=== PATIENT | female | born 2000 | race Asian ===

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

== ENCOUNTER → 2020-07-16 | Outpatient (CLI) | payer OTHER | END | disposition home or self-care (01) | LOC: RADMAMWWP 09:46 | PROVIDERS: ATTEND Family Medicine | DX: Z53.9 Procedure and treatment not carried out, unspecified reason (principal) ==

== ENCOUNTER 2021-05-17 12:53 | Emergency (ER) | payer OTHER ==
[2021-05-17 13:37] VITALS: BP 117/66; PULSE 97; RESP 18; TEMP 98
--- NOTE | 2021-05-17 14:08 | ED ---
Abdominal Pain HPI - General Chief Complaint: Abdominal Pain Stated Complaint: Abdominal Pain, 6 weeks prg. Time Seen by Provider: 05/17/21 13:46 Source: patient Mode of arrival: ambulatory Limitations: no limitations - History of Present Illness Initial Comments: 20-year-old female presents to the emergency department with complaints of generalized abdominal pain intermittent for the past 2 weeks. States pain initially began in the left flank but no typically occurs in the epigastrium, though often spreads across the lower abdomen as well. Patient states she is approximately 6 weeks , LMP April 06. Does complain of mild intermittent nausea, though none at this time. Patient states she is scheduled to see her OB on MayMay 31, but is having variable discomfort and is uncomfortable waiting until then. No known sick contacts. Patient denies fever, chills, headache, chest pain, difficulty breathing, shortness of breath, vomiting, diarrhea, dysuria, or hematuria. - Related Data Home Medications Medication Instructions Recorded Confirmed 78/Iron/Folate 1/Dha 1 tab PO DAILY 12/12/17 05/17/21 [Prenate Dha Softgel] Previous Rx's Medication Instructions Recorded cephALEXin [cephALEXin Oral Susp] 250 mg PO Q6H 10 Days #200 ml 05/17/21 Allergies Allergy/AdvReac Type Severity Reaction Status Date / Time bee venom protein (honey bee) Allergy Rash/Hives Verified 05/17/21 15:52 Review of Systems ROS Statement: Those systems with pertinent positive or pertinent negative responses have been documented in the HPI. ROS Other: All systems not noted in ROS Statement are negative. Past Medical History Past Medical History: Asthma Additional Past Medical History / Comment(s): Eczema History of Any Multi-Drug Resistant Organisms: None Reported Past Surgical History: Adenoidectomy, Tonsillectomy Past Anesthesia/Blood Transfusion Reactions: No Reported Reaction Past Psychological History: No Psychological Hx Reported Smoking Status: Current every day smoker Past Alcohol Use History: None Reported Past Drug Use History: None Reported - Past Family History Father Family Medical History: Diabetes Mellitus, Hypertension General Exam Limitations: no limitations (Well-developed, well-nourished female in no acute distress. Initial temperature 90.8, pulse 97, respirations 18, blood pressure 117/66, pulse ox 97% on room air.) General appearance: alert, in no apparent distress ENT exam: Present: normal exam, normal oropharynx, mucous membranes moist Respiratory exam: Present: normal lung sounds bilaterally. Absent: respiratory distress, wheezes, rales, rhonchi, stridor Cardiovascular Exam: Present: regular rate, normal rhythm, normal heart sounds. Absent: systolic murmur, diastolic murmur, rubs, gallop, clicks GI/Abdominal exam: Present: soft, normal bowel sounds. Absent: distended, tenderness, guarding Back exam: Present: CVA tenderness (L) Neurological exam: Present: alert, oriented X3, CN II-XII intact Psychiatric exam: Present: normal affect, normal mood Skin exam: Present: warm, dry, intact, normal color. Absent: rash Course Vital Signs 05/17/21 13:35 Temperature 98 F Pulse Rate 97 Respiratory 18 Rate Blood Pressure 117/66 O2 Sat by Pulse 97 Oximetry - Reevaluation(s) Reevaluation #1: 05/17/21 16:15 Updated patient on results thus far. Patient declines blood draw and would like to leave. Discussed findings of UTI and patient is agreeable to treatment. Reiterated the importance of close follow-up. Medical Decision Making - Medical Decision Making 20-year-old female, , presents to the emergency department for evaluation of generalized abdominal pain. LMP April 06. Upon exam, patient is well-appearing and in no acute distress. Describes intermittent, vague abdominal discomfort occurring over the course of the past 2 weeks. Does have left CVA tenderness. Denies vaginal bleeding or discharge. Ultrasound was obtained showing no suspicious adenxal or extra-ovarian masses. Probable 1.5 cm corpus luteal cyst left ovary noted. Findings favor too early to visualize intrauterine . Laboratory studies were ordered, however patient was unwilling willing to wait for blood to be drawn. Did provide a urine specimen t hat shows large amount of leukocyte esterase, urine WBC>urine RBC, some squamous epithelial cell contamination, and many bacteria. UTI will be treated with Keflex which patient requests to be a liquid suspension. Patient will be discharged home and Instructed to follow-up with OB as scheduled, as well as primary care for recheck this week. Return parameters were discussed in detail. Patient verbalizes understanding and agrees with this plan. This patient's care was discussed with my attending . - Lab Data Lab Results 05/17/21 Range/Units 15:04 Urine Color Light Yellow Urine Appearance Cloudy H (Clear) Urine pH 6.5 (5.0-8.0) Ur Specific [place] 1.007 (1.001-1.035) Urine Protein Negative (Negative) Urine Glucose (UA) Negative (Negative) Urine Ketones Negative (Negative) Urine Blood Negative (Negative) Urine Nitrite Negative (Negative) Urine Bilirubin Negative (Negative) Urine Urobilinogen <2.0 (<2.0) mg/dL Ur Leukocyte Esterase Large H (Negative) Urine RBC 50 H (0-5) /hpf Urine WBC 107 H (0-5) /hpf Ur Squamous Epith Cells 36 H (0-4) /hpf Urine Bacteria Many H (None) /hpf Urine Mucus Rare H (None) /hpf - Radiology Data Radiology results: report reviewed Transvaginal and transabdominal ultrasound was obtained. Report reviewed in its entirety. The ovaries are identified without suspicious extra ovarian adnexal masses. Probable 1.5 cm corpus luteal cyst left ovary noted. Impression per Dr. Castillo is findings favor too early to visualize intrauterine . Disposition Clinical Impression: Urinary tract infection during Disposition: HOME SELF-CARE Condition: Stable Instructions (If sedation given, give patient instructions): Urinary Tract Infection in (ED) Additional Instructions: Follow-up with your primary care provider for a recheck early next week. Take antibiotic Keep appointment as scheduled with OB provider. Continue taking vitamin. Return to the emergency department with any new, worsening, or concerning symptoms. Prescriptions: cephALEXin [cephALEXin Oral Susp] 250 mg PO Q6H 10 Days #200 ml Is patient prescribed a controlled substance at d/c from ED?: No Referrals: Faviola Castelan DO [Primary Care Provider] - 1-2 days Time of Disposition: 16:39
[2021-05-17 15:24] LABS: Appearance,Urine Cloudy (Clear); Bacteria,Urine Many /hpf; Bilirubin,Urine Negative (Negative); Blood,Urine Negative (Negative); Color,Urine Light Yellow; Glucose,Urine (UA) Negative (Negative); Ketones,Urine Negative (Negative); Leukocyte Esterase,Urine Large (Negative); Mucus,Urine Rare /hpf; Nitrite,Urine Negative (Negative); PH, Urine 6.5 (5.0-8.0); Protein,Urine Negative (Negative); RBC,Urine 50 /hpf (0-5); Specific Gravity,Urine 1.007 (1.001-1.035); Squamous Epithelial Cell,Urine 36 /hpf (0-4); Urobilinogen,Urine <2.0 mg/dL (<2.0); WBC,Urine 107 /hpf (0-5)
--- NOTE | 2021-05-17 15:53 | US ---
EXAMINATION TYPE: Transabdominal DATE OF EXAM: 05/17/2021 3:35 PM COMPARISON: NONE CLINICAL HISTORY: generalized abdominal pain. Generalized pain. EXAM PERFORMED: Transvaginal (TV) and Transabdominal (TA) EXAM MEASUREMENTS: GESTATIONAL AGE / DATING Physician Established: Not yet established Dates by LMP: (5 weeks/6 days) EDC: 01/11/2022 Dates by First Scan: No previous this is first scan Dates by Current Scan for: Unable to date by today's study MATERNAL ANATOMY Uterus: 7.3 x 5.9 x 4.6 cm Right Ovary: 2.0 x 1.8 x 1.4 cm Left Ovary: 3.0 x 1.7 x 1.6 cm Post CDS / Adnexa: no free fluid Presence of free fluid: no Presence of corpus luteal cyst: left ovary = 1.5 x 1.5 x 1.4 cm Presence of subchorionic bleed: no GESTATION / SURVEY CRL: No seen MSD: 0.8 cm Too small to date Yolk Sac (normal less than 6mm): 2.4 mm IUP: Date of LMP: 04/06/2021, Beta HcG (if available): Not available at this time GS and YS visualized within endometrial canal. CRL not seen on todays exam. Heterogeneous anteverted uterus. Thickening of the endometrium up to roughly 32 mm. There is oval ane choic 10 x 7 x 7 mm structure with internal 2 mm rim hyperechoic round central anechoic lesion felt t o reflect early gestational sac and yolk sac. No pole seen. No free fluid pelvic cul-de-sac. Both ovaries identified without suspicious extraovarian adnexal masses. Probable 1.5 cm corpus luteal cyst left ovary noted. IMPRESSION: Findings favor too early to visualize intrauterine as detailed above. Serial be ta hCG and ultrasound follow-up should be considered based on clinical correlation.
[2021-05-17] MEDS ORDERED: CEPHALEXIN 250 MG/5 ML SUSPENSION PO STA (16:43)
== END 2021-05-17 17:15 | disposition home or self-care (01) ==
LOC: EC 12:53
DX: O23.41 Unspecified infection of urinary tract in pregnancy, first trimester (principal); N39.0 Urinary tract infection, site not specified; O99.511 Diseases of the respiratory system complicating pregnancy, first trimester; J45.909 Unspecified asthma, uncomplicated; O99.331 Smoking (tobacco) complicating pregnancy, first trimester; F17.200 Nicotine dependence, unspecified, uncomplicated; Z3A.01 Less than 8 weeks gestation of pregnancy
CPT/HCPCS: 76801; 76817; 81001; 87086; 99284

== ENCOUNTER 2021-07-28 20:37 | Emergency (ER) | payer OTHER ==
[2021-07-28] MEDS ORDERED: ACETAMINOPHEN TAB 325 MG TAB PO STA (21:04)
--- NOTE | 2021-07-28 21:10 | ED ---
General Adult HPI - General Chief complaint: Abdominal Pain Stated complaint: Chest/abd pain-16 weeks preg. Time Seen by Provider: 07/28/21 20:58 Source: patient, RN notes reviewed, old records reviewed Mode of arrival: ambulatory Limitations: no limitations - History of Present Illness Initial comments: 20-year-old female and well-appearing presents to the emergency room ambulatory with complaints of upper abdominal pain and right clavicle pain. Patient states that she is moving and has been lifting boxes and is not sure if this is muscle strain. She states it hurts with movement and to palpation. She denies any fevers or shortness of breath. She is 16 weeks but denies vaginal bleeding or pain. She states that she is feeling the baby move. She is currently taking antibiotics for a dental infection and has been on these antibiotics for a 6 days. -: days(s) (10) Location: right, upper extremity (Clavicle) Radiation: non-radiation Severity scale (1-10): 9 Quality: aching, constant Consistency: constant Improves with: immobilization Worsens with: movement, other (palpation) Associated Symptoms: other (right and left upper abdominal pain) Treatments Prior to Arrival: none - Related Data Home Medications Medication Instructions Recorded Confirmed 78/Iron/Folate 1/Dha 1 tab PO DAILY 12/12/17 07/28/21 [Prenate Dha Softgel] Amoxicillin 500 mg PO Q8H 07/28/21 07/28/21 Ondansetron HCl [Zofran] 4 mg PO Q8H PRN 07/28/21 07/28/21 Previous Rx's Medication Instructions Recorded Cephalexin [Keflex] 500 mg PO Q8HR 7 Days #21 cap 07/28/21 Allergies Allergy/AdvReac Type Severity Reaction Status Date / Time bee venom protein (honey bee) Allergy Swelling Verified 07/28/21 21:59 @site of sting Review of Systems ROS Statement: Those systems with pertinent positive or pertinent negative responses have been documented in the HPI. ROS Other: All systems not noted in ROS Statement are negative. Past Medical History Past Medical History: Asthma Additional Past Medical History / Comment(s): Eczema History of Any Multi-Drug Resistant Organisms: None Reported Past Surgical History: Adenoidectomy, Tonsillectomy Past Anesthesia/Blood Transfusion Reactions: No Reported Reaction Past Psychological History: No Psychological Hx Reported Smoking Status: Current every day smoker Past Alcohol Use History: None Reported Past Drug Use History: None Reported - Past Family History Father Family Medical History: Diabetes Mellitus, Hypertension General Exam Limitations: no limitations General appearance: alert, in no apparent distress Eye exam: Present: normal appearance, EOMI. Absent: scleral icterus, conjunctival injection ENT exam: Present: normal exam, normal oropharynx Expanded Mouth exam: Absent: drooling, trismus, muffled voice, laceration Teeth exam: Present: dental caries Throat exam: normal inspection. negative: tonsillar erythema Neck exam: Present: normal inspection, full ROM. Absent: tenderness, meningismus Respiratory exam: Present: normal lung sounds bilaterally. Absent: respiratory distress, wheezes, rales, rhonchi, stridor, chest wall tenderness, accessory muscle use, decreased breath sounds Cardiovascular Exam: Present: regular rate GI/Abdominal exam: Present: soft, tenderness (Upper abdominal worse with leaning forward) Back exam: Present: normal inspection, full ROM. Absent: tenderness, CVA tenderness (R), CVA tenderness (L) Neurological exam: Present: alert, oriented X3, normal gait Psychiatric exam: Present: normal affect, normal mood Skin exam: Present: warm, dry, normal color, rash (Generalized eczema, face, upper back, arms). Absent: cyanosis, petechiae Course Vital Signs 07/28/21 07/28/21 07/28/21 20:43 21:32 23:12 Temperature 98.2 F 98.8 F Pulse Rate 93 87 71 Respiratory 20 18 18 Rate Blood Pressure 115/66 140/92 118/81 O2 Sat by Pulse 98 96 97 Oximetry Medical Decision Making - Medical Decision Making Patient presents with 1 week of upper abdominal pain and right clavicle pain after moving boxes. She states is worse with palpation and movement. I did discuss the risks and benefits of the x-ray and she is requesting an x-ray. Chest x-ray shows lungs are clear, diaphragm is normal. Right clavicle appears normal. heart tones are 145. Urinalysis is cloudy with large leukocyte esterase, 31 wbc's and many bacteria. Patient will be treated for asymptomatic bacteriuria with Keflex and directed to follow up with her primary care doctor and [facility]. She was directed to return to the emergency room with any new or worsening symptoms. Case discussed with Dr. Castelan. - Lab Data Lab Results 07/28/21 Range/Units 21:26 Urine Color Yellow Urine Appearance Cloudy H (Clear) Urine pH 6.5 (5.0-8.0) Ur Specific [place] 1.014 (1.001-1.035) Urine Protein Negative (Negative) Urine Glucose (UA) Trace H (Negative) Urine Ketones Negative (Negative) Urine Blood Negative (Negative) Urine Nitrite Negative (Negative) Urine Bilirubin Negative (Negative) Urine Urobilinogen 2.0 (<2.0) mg/dL Ur Leukocyte Esterase Large H (Negative) Urine RBC 7 H (0-5) /hpf Urine WBC 31 H (0-5) /hpf Ur Squamous Epith Cells 21 H (0-4) /hpf Urine Bacteria Many H (None) /hpf Disposition Clinical Impression: UTI (urinary tract infection), Musculoskeletal pain Disposition: HOME SELF-CARE Condition: Good Instructions (If sedation given, give patient instructions): Musculoskeletal Pain (ED), Urinary Tract Infection in (ED) Additional Instructions: Take antibiotics as prescribed and increase your fluid intake. Follow-up with your primary care doctor and your [facility] next week. Take Tylenol as needed for your shoulder pain Return to the emergency room with any new or worsening symptoms. Prescriptions: Cephalexin [Keflex] 500 mg PO Q8HR 7 Days #21 cap Is patient prescribed a controlled substance at d/c from ED?: No Referrals: Faviola Castelan DO [Primary Care Provider] - 1-2 days Time of Disposition: 22:30
[2021-07-28 21:36] VITALS: RESP 18
--- NOTE | 2021-07-28 21:40 | XR ---
EXAMINATION TYPE: XR chest 1V DATE OF EXAM: 07/28/2021 COMPARISON: 08/20/2018 HISTORY: Abdominal pain. Right clavicle pain TECHNIQUE: FINDINGS: Heart and mediastinum are normal. Lungs are clear. Diaphragm is normal. Bony thorax is inta ct. Right clavicle appears normal. IMPRESSION: Normal chest. No change.
[2021-07-28 21:53] LABS: Appearance,Urine Cloudy (Clear); Bacteria,Urine Many /hpf; Bilirubin,Urine Negative (Negative); Blood,Urine Negative (Negative); Color,Urine Yellow; Glucose,Urine (UA) Trace (Negative); Ketones,Urine Negative (Negative); Leukocyte Esterase,Urine Large (Negative); Nitrite,Urine Negative (Negative); PH, Urine 6.5 (5.0-8.0); Protein,Urine Negative (Negative); RBC,Urine 7 /hpf (0-5); Specific Gravity,Urine 1.014 (1.001-1.035); Squamous Epithelial Cell,Urine 21 /hpf (0-4); WBC,Urine 31 /hpf (0-5)
[2021-07-28] MEDS ORDERED: CEPHALEXIN 500 MG CAP PO STA (22:30)
[2021-07-28] MEDS ORDERED: CEPHALEXIN 500MG STARTER PACK 4 CAP BTL PO STA (22:32)
[2021-07-28 23:16] VITALS: BP 118/81; PULSE 71; TEMP 98.8
== END 2021-07-28 23:14 | disposition home or self-care (01) ==
LOC: EC 20:37
DX: O26.892 Other specified pregnancy related conditions, second trimester (principal); O23.42 Unspecified infection of urinary tract in pregnancy, second trimester; O99.512 Diseases of the respiratory system complicating pregnancy, second trimester; N39.0 Urinary tract infection, site not specified; J45.909 Unspecified asthma, uncomplicated; F17.200 Nicotine dependence, unspecified, uncomplicated; Z3A.16 16 weeks gestation of pregnancy
CPT/HCPCS: 71045; 81001; 87086; 99285

== ENCOUNTER 2021-09-30 19:58 | Outpatient (CLI) | payer OTHER ==
[2021-09-30 20:50] VITALS: BP 133/77; PULSE 98; RESP 18; TEMP 97
--- NOTE | 2021-10-26 11:52 | P.MSEPDOC ---
Presenting Problems - Arrival Data Date of Arrival on Unit: 09/30/21 Time of Arrival on Unit: 19:58 Mode of Transport: Ambulatory - Complaint OB-Reason for Admission/Chief Complaint: Pain Comment: constant upper abdominal pain xseveral hours Medical History - Information : 2 Para: 1 Term: 1 : 0 Abortions: Spontaneous or Elective: 0 Number of Living Children: 1 - Gestational Age Gestational Age by LISET (wks/days): 25 Weeks and 2 Days Review of Systems - Review of Systems Constitutional: No problems Breast: No problems ENT: No problems Cardiovascular: No problems Respiratory: No problems Gastrointestinal: Pain Genitourinary: No problems Musculoskeletal: No problems Neurological: No problems Skin: No problems Vital Signs - Temperature Temperature: 97.0 F Temperature Source: Temporal Artery Scan - Pulse Pulse Oximetery Pulse Rate: 98 Pulse Assessment Method: Pulse Oximetry - Respirations Respiratory Rate: 18 Oxygen Delivery Method: Room Air O2 Sat by Pulse Oximetry: 97 - Blood Pressure Right Arm Blood Pressure: 133/77 Blood Pressure Mean: 95 Blood Pressure Source: Automatic Cuff Medical Screen Scoring - Assessment - Baby A Baseline FHR: 150 Physician Notification - Physician Notified Physician Notified Date: 09/30/21 Physician Notified Time: 20:30 Physician: Ravi Ragsdale New Order Received: Yes - Notification Comment Comment: Dr. Ragsdale called, report given on maternal and status, pt complaints. of upper abdominal pain for the past "several hours" that pt states is "contraction. pain" but describes it as constant upper abdominal pain. Pt denies any increased nausea. Abdomen is soft to palpation even when pt reports pain, no contractions graphing via. TOCO, and FHR is 150-160s but fetus is very active and not continually tracing. Per Dr. Ragsdale, pt chandlerabmary has a GI virus. states he has been seeing a lot of GI viruses in the past. several weeks. Orders to discharge pt home with instructions to expect GI upset and. diarrhea and make a follow up appointment with Dr. Negro for this week if symptoms do. not resolve in the next several days. Maternal Triage Index - Maternal Triage Index Presenting for scheduled procedure w/no complaint: No - Stat/Priority 1 Stat Priority 1: No - Urgent/Priority 2 Urgent Priority 2: No - Prompt/Priority 3 Prompt Priority 3: No - Non-Urgent/Priority 4 Non-Urgent Priority 4: Yes Criteria Met for Priority 4: constant upper abdominal pain xseveral hours, 25 2/7 weeks Disposition - Disposition OB Disposition: Discharge to home Discharge Date: 09/30/21 Discharge Time: 20:40 I agree with the RN Medical Screening Exam: Yes Physician's MSE Comment: I have neither seen nor exams the patient. Case reviewed; plan agreed upon as documented in EMR&OBIX.: Yes Diagnosis: RELATED CONDITIONS, UNSPECIFIED, SECOND TRIMESTER
== END 2021-09-30 20:40 | disposition home or self-care (01) ==
LOC: FBPOP 19:58
PROVIDERS: ATTEND Obstetrics & Gynecology
DX: O26.892 Other specified pregnancy related conditions, second trimester (principal); R10.10 Upper abdominal pain, unspecified; Z3A.25 25 weeks gestation of pregnancy; Z91.030 Bee allergy status; Z87.891 Personal history of nicotine dependence
CPT/HCPCS: 99213

== ENCOUNTER 2021-11-27 17:46 | Inpatient (IN) | payer OTHER ==
[2021-11-27] MEDS ORDERED: BETAMET ACET-BETAMETH SOD PHOS 6 MG/ML MDV IM SCH (18:55)
[2021-11-27] MEDS ORDERED: CITRIC ACID-SODIUM CITRATE 15 ML CUP PO ONE (19:02)
[2021-11-27 19:15] LABS: Appearance,Urine Turbid (Clear); Bacteria,Urine Occasional /hpf; Bilirubin,Urine Negative (Negative); Blood,Urine Trace (Negative); Color,Urine Yellow; Glucose,Urine (UA) 2+ (Negative); Ketones,Urine 1+ (Negative); Leukocyte Esterase,Urine Large (Negative); Mucus,Urine Few /hpf; Nitrite,Urine Negative (Negative); PH, Urine 6.5 (5.0-8.0); Protein,Urine 1+ (Negative); RBC,Urine 3 /hpf (0-5); Specific Gravity,Urine 1.027 (1.001-1.035); Squamous Epithelial Cell,Urine 40 /hpf (0-4); WBC,Urine >182 /hpf (0-5)
[2021-11-27 19:28] LABS: Basophils # (A) 0.1 k/uL (0-0.2); Basophils % (A) 0 %; Eosinophils # (A) 0.1 k/uL (0-0.7); Eosinophils % (A) 0 %; HCT 36.1 % (34.0-46.0); HGB 11.8 gm/dL (11.4-16.0); Lymphocytes # (A) 2.6 k/uL (1.0-4.8); Lymphocytes % (A) 17 %; MCH 27.6 pg (25.0-35.0); MCHC 32.5 g/dL (31.0-37.0); MCV 84.8 fL (80.0-100.0); Mean Platelet Volume 8.7; Monocytes % (A) 7 %; Neutrophils # (A) 11.2 k/uL (1.3-7.7); Neutrophils % (A) 73 %; Platelet Count 388 k/uL (150-450); RBC 4.26 m/uL (3.80-5.40); RDW 13.8 % (11.5-15.5); WBC 15.2 k/uL (3.8-10.6)
[2021-11-27] MEDS ORDERED: PHENYLEPHRINE-0.9% NACL SYG 1,000 MCG/10 ML SYRINGE ONE (19:31)
[2021-11-27] MEDS ORDERED: MORPHINE SULFATE (PF) 0.3 MG/0.3 ML SYR ONE (19:31)
[2021-11-27] MEDS ORDERED: OXYTOCIN 30 UNITS/500 ML NS BAG IV ONE (19:31)
[2021-11-27] MEDS ORDERED: ONDANSETRON 4 MG/2 ML VIAL ONE (19:31)
[2021-11-27] MEDS ORDERED: diphenhydrAMINE 50 MG CAP PO PRN (20:10)
[2021-11-27] MEDS ORDERED: ONDANSETRON 4 MG/2 ML VIAL IVP PRN (20:10)
[2021-11-27] MEDS ORDERED: NALOXONE 0.4 MG/ML 1 ML VIAL IV PRN ×2 (20:10→21:48)
[2021-11-27] MEDS ORDERED: diphenhydrAMINE 25 MG CAP PO PRN (20:10)
[2021-11-27] MEDS ORDERED: METOCLOPRAMIDE 5 MG/ML 2 ML VIAL IVP PRN (20:10)
[2021-11-27] MEDS ORDERED: ZOLPIDEM 5 MG TAB PO PRN (20:10)
[2021-11-27] MEDS ORDERED: diphenhydrAMINE 50 MG/ML 1 ML VIAL IVP PRN ×2 (20:10)
[2021-11-27] MEDS ORDERED: SIMETHICONE 80 MG CHEWABLE PO PRN (20:10)
[2021-11-27] MEDS ORDERED: LACTATED RINGERS 1,000 ML IV SCH (20:15)
[2021-11-27] MEDS ORDERED: OXYTOCIN 30 UNITS/500 ML NS 30 UNIT in SALINE 1 500ML.BAG IV SCH (20:15)
--- NOTE | 2021-11-27 20:23 | P.HPOB ---
History of Present Illness H&P Date: 11/27/21 Chief Complaint: Increasing abdominal pain, decreased movement This is a 20-year-old female 2 para 1001 EDC 01/11/2022 at 33-4/7 weeks' gestation. Patient was seen in the office yesterday for nonstress test at which time baseline was 140s to 150s. She has been complaining of abdominal pain over the past 2 weeks, was seen in [place] at an obst[facility]rical [facility] for same. Sonogram on 11/20/2021 revealed a 76 percentile edwards male fetus, RASHMI 19, but in early grade 3 placenta. Weekly nonstress tests have been performed. This afternoon patient states that the abdominal pain is increased in severity, from the sternum to the pubic bone. She also reports decreased activity over the past 24 hours. Bedside ultrasound reveals a grade 3 placenta with the appearance of vascular lakes. heart rate was in the 190s on admission, down to the 160s to 70s with fluid resuscitation. Decision is made to proceed with primary low transverse section. Past medical history significant for anxiety and depression, asthma, carpal tunnel syndrome, sciatica. Past surgical history tonsillectomy and adenoidectomy age 10. Current medications vitamins daily, Tylenol as needed. ALLERGIES include bee stings, no known medical ALLERGIES. Social history patient is , she smokes 2 packs of tobacco daily and has for 4 years. She denies alcohol or drug use. 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 history is significant for blood type B+, rubella status immune. Gonorrhea and chlamydia cultures, HIV testing, hepatitis B surface antigen all - 1 hour Glucola elevated, three-hour GTT within normal limits. Family history significant for her mother having almost with anesthesia, otherwise negative history. On exam patient is 5 foot 2 inches, blood pressure 130/67, pulse 103. Chest is clear in all guajardo. Fundal height is closer to 35 cm. Uterus is tender to palpation over the area of the fundal placenta. Bedside ultrasound reveals the presence of vascular lakes as well as calcifications in the placenta, edwards male fetus. heart rate at this time is in the 160s to 170s with decreased variability. Impression: 33-4/7 weeks intrauterine , nonreassuring heart tones with persistent tachycardia despite fluid resuscitation, sonographic evidence of vascular lakes and the placenta as well as calcifications. Betamethasone given 1. Plan at this point I do not feel the patient is stable for transfer. We will proceed with primary low transverse section. Anesthesia and pediatric teams aware and present. All questions answered. Patient is aware that the infant will likely be transferred to a tertiary care center based on early gestational age. Antibiotics given. Elizabeth catheter placed to direct drainage. Bicitra given. Review of Systems Constitutional: Reports as per HPI Past Medical History Past Medical History: Asthma Additional Past Medical History / Comment(s): Eczema History of Any Multi-Drug Resistant Organisms: None Reported Past Surgical History: Adenoidectomy, Tonsillectomy Past Anesthesia/Blood Transfusion Reactions: No Reported Reaction Smoking Status: Current every day smoker - Past Family History Father Family Medical History: Diabetes Mellitus, Hypertension Medications and Allergies Home Medications Medication Instructions Recorded Confirmed Type 78/Iron/Folate 1/Dha 1 tab PO DAILY 12/12/17 09/30/21 History [Prenate Dha Softgel] ondansetron HCL [Zofran] 4 mg PO Q8H PRN 07/28/21 09/30/21 History Sertraline [Zoloft] 50 mg PO DAILY 09/30/21 09/30/21 History Allergies Allergy/AdvReac Type Severity Reaction Status Date / Time bee venom protein (honey bee) Allergy Swelling Verified 09/30/21 20:18 @site of sting Exam Intake and Output 11/27/21 11/27/21 11/27/21 06:59 14:59 22:59 Other: Weight 88.451 kg As per dictation Results Result Diagrams: 11/27/21 18:50 Abnormal Lab Results - Last 24 Hours (Table) 11/27/21 11/27/21 Range/Units 18:50 18:50 WBC 15.2 H (3.8-10.6) k/uL Neutrophils # 11.2 H (1.3-7.7) k/uL Urine Appearance Turbid H (Clear) Urine Protein 1+ H (Negative) Urine Glucose (UA) 2+ H (Negative) Urine Ketones 1+ H (Negative) Urine Blood Trace H (Negative) Ur Leukocyte Esterase Large H (Negative) Urine WBC >182 H (0-5) /hpf Ur Squamous Epith Cells 40 H (0-4) /hpf Urine Bacteria Occasional H (None) /hpf Urine Mucus Few H (None) /hpf Assessment and Plan Assessment: 33-4/7 weeks intrauterine , nonreassuring heart tones with persistent tachycardia, grade 3 placenta with presence of vascular lakes. Suspicion for abruption. Plan: For primary low transverse section. All risks and benefits reviewed. Anesthesia and pediatric teams present Time with Patient: Less than 30
--- NOTE | 2021-11-27 20:31 | P.OP ---
Date of Procedure: 11/27/21 Preoperative Diagnosis: 33-4/7 weeks intrauterine , nonreassuring heart tones with persistent tachycardia despite IV hydration, placental abnormalities noted sonographically including vascular legs and increased calcification Postoperative Diagnosis: Same, liveborn male , scores 8 and 9, weight 5 lbs. 12 oz. or 2600 g. Fibroid uterus. Normal-appearing tubes and ovaries bilaterally. Procedure(s) Performed: Primary low transverse section Anesthesia: spinal Surgeon: Aysha Negro Leather Polisher #1: Kristin Groves Estimated Blood Loss (ml): 350 IV fluids (ml): 500 Urine output (ml): 100 Pathology: other (Placenta) Condition: stable Description of Procedure: Patient is brought to the operating suite where a spinal analgesia with Duramorph is given. She is placed in the dorsal supine position. The anesthesia team is present and administers a spinal with Duramorph. She's placed in the dorsal supine position with left lateral uterine displacement. The appropriate timeout is performed to assure proper patient and procedural identification. The analgesia is checked and noted to be adequate. The abdomen is prepped and draped in usual sterile fashion. A low transverse skin incision is made in this is carried down through the subcutaneous tissue which is approximate 4 cm deep. Fascia is isolated, scored, extended bilaterally with curved Morales scissors. Bladder flap is created using Metzenbaum scissors and at all times the bladder is Well from the operative field to avoid bladder and/or ureteral injury. A low transverse uterine incision is made in this is extended with blunt dissection. Upon entering the uterine cavity large vascular lakes are noted. The infant's head is delivered in the occiput anterior position. There is no nuchal cord. The oropharynx, nasopharynx, and external nares were all bulb suctioned carefully. Patient is officially delivered of a liveborn male at 1944 hours. There is a nuchal cord 1 that is reduced. Umbilical cord is doubly clamped and ligated, he is handed to waiting bull chain operator for evaluation where scores of 8 and 9 at one and 5 minutes respectively are given. The placenta delivers very quickly spontaneously, it is sent to pathology for further evaluation. Trivascular cord is noted. Cord gases are sent to the lab for evaluation. The uterus is then massaged and externalized. It contains a single 2 cm anterior uterine fibroid. It is swept clean with a sterile sponge to avoid any retained products of conception. It is closed in a two-step fashion, first layer running locking with 0 Vicryl, second layer imbricated with 0 Vicryl. Excellent reapproximation is noted. Bilateral gutters are inspected and cleaned. Uterus is placed back into the abdominal cavity. The edges of the incision are still very slightly oozy and therefore the "snow" surgical powder is placed with excellent results. Tubes and ovaries appear normal. The peritoneum was allowed to close by secondary intention. Fascia is closed in a running stitch of 0 Vicryl with over ligation in the midline. Subcutaneous tissue is irrigated, clean and dry. It is reapproximated with 3-0 Vicryl. 40 Mastisol is used for final skin closure. Steri-Strips and Mastisol are applied to the wound. Total estimated blood loss 350 mL's. The Elizabeth is noted to be draining clear urine, excellent urine output. All sponge needle and enhancement counts are correct. Patient is brought back to recovery room in very good condition. Bronc Buster is present evaluating the who appears to be doing very well in the nursery.
--- NOTE | 2021-11-27 20:54 | US ---
EXAMINATION TYPE: US OB >= 14 wk fetus DATE OF EXAM: 11/27/2021 COMPARISON: None CLINICAL HISTORY: abd pain ro abrubtion Patient is 33w4d; A0; patient experiencing abdominal pain . Dr. Negro called for ultrasound to assess placenta. TECHNIQUE: Transabdominal (TA) GESTATIONAL AGE / DATING Physician Established: (33 weeks/4 days) EDC: 01/11/22 SURVEY IUP: Single PLACENTA: Anterior; placental lakes and calcifications seen PREVIA: No Previa HEART RATE: 167 bpm RHYTHM: Normal Limited study - exam unable to be finished. Dr. Negro was in the room while exam was performed. Dr. Mary galvan requested to end the exam due to taking the patient for an emergency . IMPRESSION: Limited exam performed shows the ultrasound gestational age is 34 weeks according to the biparietal d iameter. The heart rate was 167. There are echogenic areas in the placenta consistent with some calcification and degradation. No definite placental abruption.
[2021-11-27] MEDS ORDERED: MORPHINE SULFATE 2 MG/ML SYRINGE IVP PRN (21:48)
[2021-11-28] MEDS: IBUPROFEN 600 MG TAB PO SCH ×3 (02:40→15:07)
[2021-11-28] MEDS: IBUPROFEN IV 800 MG in SODIUM CHLORIDE 0.9% 250 ML IV SCH ×3 (02:46→15:06)
[2021-11-28] MEDS ORDERED: NICOTINE 21MG/24HR PATCH TRANSDERM SCH ×4 (07:00→09:00)
[2021-11-28 07:04] LABS: Basophils % (A) 0 %; Eosinophils # (A) 0.2 k/uL (0-0.7); Eosinophils % (A) 1 %; HCT 35.7 % (34.0-46.0); HGB 11.2 gm/dL (11.4-16.0); Lymphocytes # (A) 1.8 k/uL (1.0-4.8); Lymphocytes % (A) 6 %; MCH 27.1 pg (25.0-35.0); MCHC 31.3 g/dL (31.0-37.0); MCV 86.5 fL (80.0-100.0); Mean Platelet Volume 8.9; Monocytes % (A) 4 %; Neutrophils # (A) 24.6 k/uL (1.3-7.7); Neutrophils % (A) 88 %; Platelet Count 353 k/uL (150-450); RBC 4.12 m/uL (3.80-5.40); RDW 13.8 % (11.5-15.5); WBC 27.9 k/uL (3.8-10.6)
[2021-11-28] MEDS ORDERED: SENNOSIDES-DOCUSATE SODIUM 1 EACH TAB PO SCH (08:00)
--- NOTE | 2021-11-28 08:19 | P.DS ---
Providers Date of admission: 11/27/21 19:33 Expected date of discharge: 11/28/21 Attending physician: Kristin Groves Primary care physician: Stated None Hospital Course: This is a 20-year-old patient 2 para 1001 EDC 01/11/2022 at 33-4/7 weeks' gestation. Patient presented to the triage area with decreased movement, any increased abdominal pain which she rated 8 out of 10. is remarkable for known early grade 3 placenta noted sonographically. Bedside ultrasound in the triage area revealed the presence of vascular latex, a new finding. In addition, heart rate was in the 180s to 190s, decreased to the 160s to 170s with 1 L of fluid. Decision was made for primary low transverse section. Please see dictated history and physical for details. Patient underwent a primary low transverse section giving to a liveborn male with scores of 8 and 9 at one and 5 minutes respectively. He weighed 5 lbs. 12 oz. or 2600 g. did very well, bone puller present, was transferred to [facility] based on his gestational age. This morning he again seems to be doing well. Placenta was sent to pathology, estimated blood loss 350 mL in the operating room, please see dictated note for details. Nuchal cord 1 also noted. This morning the patient is doing well. She is voiding, ambulating, passing flatus without difficulty. She has a history of 2 pack per day tobacco use, I have given her prescription for the nicotine patch. I have also given her prescription for a double electric breast pump. The breasts are not engorged. The fundus is firm and in the midline, 16-18 week size. Incision is clean and dry, Steri-Strips applied, intact and appears well. Patient is doing very well clinically and is anxious to be discharged home so that she can attend to her son at [facility]. She has good family support. I believe she is in good condition for discharge home. She will use [id number] Advil or Aleve, or Motrin as needed for pain. She will call with any fevers shakes or chills, foul smelling or copious lochia, with the passage of large blood clots, with any pain not alleviated by [id number] products, or indeed with any concerns. Again, I have counseled her thoroughly on smoking cessation at this time and she is willing to attempt same. Call with any issues or difficulties. I will see her in the office in 2 weeks. Assessment: Doing well postoperative day #1 Patient Condition at Discharge: Good Plan - Discharge Summary Discharge Rx Participant: No New Discharge Prescriptions: No Action 78/Iron/Folate 1/Dha [Prenate Dha Softgel] 1 tab PO DAILY ondansetron HCL [Zofran] 4 mg PO Q8H PRN PRN Reason: Nausea And Vomiting Sertraline [Zoloft] 50 mg PO DAILY Discharge Medication List 78/Iron/Folate 1/Dha [Prenate Dha Softgel] 1 tab PO DAILY 12/12/17 [History] ondansetron HCL [Zofran] 4 mg PO Q8H PRN 07/28/21 [History] Sertraline [Zoloft] 50 mg PO DAILY 09/30/21 [History] Follow up Appointment(s)/Referral(s): Aysha Negro MD [STAFF PHYSICIAN] - 2 Weeks
[2021-11-28 08:25] VITALS: RESP 16; TEMP 98.3
[2021-11-28] MEDS ORDERED: ACETAMINOPHEN TAB 500 MG TAB PO SCH (09:00)
[2021-11-28] MEDS ORDERED: PRENATAL VIT-IRON-FOLIC ACID 1 EACH TABLET PO SCH (09:00)
[2021-11-28] MEDS ORDERED: SERTRALINE 50 MG TAB PO SCH (09:00)
--- NOTE | 2021-11-28 10:28 | P.PN ---
Progress Note - Text Date: 11/28/2021 Time: 7:07 The patient is status post section Vital signs stable VAS:0-10 Patient has no complaints of pain. The patient incurred some minimal itching yesterday, this itching is now subsiding. Pain meds to be managed by service.
[2021-11-28 15:04] VITALS: BP 128/78; PULSE 76
[2021-11-28] MEDS ORDERED: ACETAMINOPHEN IV (For NPO) 1,000 MG in EMPTY BAG 1 BAG IVPB SCH (21:00)
== END 2021-11-28 14:00 | disposition home or self-care (01) | DRG 788 ==
LOC: FBPOP 17:46 → 4FBP 19:33
PROVIDERS: ADMIT Obstetrics & Gynecology Obstetrics; ATTEND Obstetrics & Gynecology Obstetrics
PROC: 10D00Z1 Extraction of Products of Conception, Low, Open Approach (ICD-10-PCS; principal; 2021-11-27 19:31)
DX: O36.8130 Decreased fetal movements, third trimester, not applicable or unspecified (principal); D25.9 Leiomyoma of uterus, unspecified; F17.200 Nicotine dependence, unspecified, uncomplicated; J45.909 Unspecified asthma, uncomplicated; O34.13 Maternal care for benign tumor of corpus uteri, third trimester; O69.81X0 Labor and delivery complicated by cord around neck, without compression, not applicable or unspecified; O76 Abnormality in fetal heart rate and rhythm complicating labor and delivery; O99.334 Smoking (tobacco) complicating childbirth; O99.52 Diseases of the respiratory system complicating childbirth; Z37.0 Single live birth; Z3A.33 33 weeks gestation of pregnancy; Z79.899 Other long term (current) drug therapy; Z82.49 Family history of ischemic heart disease and other diseases of the circulatory system; Z83.3 Family history of diabetes mellitus
CPT/HCPCS: 36415; 76805; 81001; 82731; 85025; 86850; 86900; 86901; 87086; 96360; 99214; 99215

== ENCOUNTER 2022-12-28 21:16 | Emergency (ER) | payer OTHER ==
[2022-12-28 21:25] VITALS: TEMP 98.2
[2022-12-28] MEDS ORDERED: SODIUM CHLORIDE 0.9% 1,000 ML IV STA (22:03)
[2022-12-28] MEDS ORDERED: diphenhydrAMINE 50 MG/ML 1 ML VIAL IVP STA (22:04)
[2022-12-28] MEDS ORDERED: METOCLOPRAMIDE 5 MG/ML 2 ML VIAL IVP STA (22:04)
[2022-12-28 22:54] LABS: Basophils % (A) 0 %; Eosinophils # (A) 0.2 k/uL (0-0.7); Eosinophils % (A) 2 %; HCT 40.9 % (34.0-46.0); HGB 13.8 gm/dL (11.4-16.0); Lymphocytes # (A) 3.7 k/uL (1.0-4.8); Lymphocytes % (A) 37 %; MCH 28.1 pg (25.0-35.0); MCHC 33.7 g/dL (31.0-37.0); MCV 83.4 fL (80.0-100.0); Mean Platelet Volume 7.8; Monocytes # (A) 0.5 k/uL (0-1.0); Monocytes % (A) 5 %; Neutrophils # (A) 5.3 k/uL (1.3-7.7); Neutrophils % (A) 54 %; Platelet Count 385 k/uL (150-450); RBC 4.91 m/uL (3.80-5.40); RDW 12.6 % (11.5-15.5); WBC 9.9 k/uL (3.8-10.6)
--- NOTE | 2022-12-28 23:04 | ED ---
General Adult HPI - General Chief complaint: Syncope Stated complaint: Hypoglycemia Time Seen by Provider: 12/28/22 21:30 Source: patient, RN notes reviewed, old records reviewed Mode of arrival: ambulatory Limitations: no limitations - History of Present Illness Initial comments: Patient is a 22-year-old female who presents emergency Department with multiple complaints at up and ongoing for the last year. Patient states that she occasionally feels lightheaded, gets a lightheaded sensation. States she may pass out as well but states this occurs when she lays down and falls asleep. Uncertain if this is fainting or not. States she feels weak occasionally. Was concerned for hypoglycemia and has been checking her sugars but she states that than normal. Has noticed occasionally that her blood pressure is lower at home as well. Has been getting worked up by her PCP for this, and it has been ongoing for the last year but has a mild worsening of her symptoms over the last 1-2 weeks. Presents for evaluation at this time. States she is somewhat less of an appetite. Denies chest pain or shortness of breath. States she does have a history of anxiety and depression. Does not believe she is anxious at this time. Does have a mild headache as well. No known sick contacts. No urinary complaints. Denies being . Describes her dizziness as a lightheadedness sensation in addition to the headache that is mild and has been ongoing. Presents for workup as she believes she is not improving and is uncertain what is going on. States her outpatient workup is yielded minimal results and is not received imaging.Denies any trauma. Denies being on blood thinners. - Related Data Home Medications Medication Instructions Recorded Confirmed 78/Iron/Folate 1/Dha 1 tab PO DAILY 12/12/17 09/30/21 [Prenate Dha Softgel] ondansetron HCL [Zofran] 4 mg PO Q8H PRN 07/28/21 09/30/21 Sertraline [Zoloft] 50 mg PO DAILY 09/30/21 09/30/21 Allergies Allergy/AdvReac Type Severity Reaction Status Date / Time bee venom protein (honey bee) Allergy Swelling Verified 09/30/21 20:18 @site of sting Review of Systems ROS Statement: Those systems with pertinent positive or pertinent negative responses have been documented in the HPI. Review of Systems: CONST: Denies fever EYES: Denies blurry vision ENT: Denies nasal congestion C/V: Denies Chest pain RESP: Denies shortness of breath GI: Denies abdominal pain : Denies dysuria SKIN: Denies rash. MSK: Denies joint pain. NEURO: Endorses headache, dizziness, weakness ROS Other: All systems not noted in ROS Statement are negative. Past Medical History Past Medical History: Asthma Additional Past Medical History / Comment(s): Eczema, hypoglycemia History of Any Multi-Drug Resistant Organisms: None Reported Past Surgical History: Adenoidectomy, Section, Tonsillectomy Past Anesthesia/Blood Transfusion Reactions: No Reported Reaction Past Psychological History: No Psychological Hx Reported Smoking Status: Current every day smoker - Past Family History Father Family Medical History: Diabetes Mellitus, Hypertension General Exam - General Exam Comments Initial Comments: General: Appears in no acute distress. HEAD: Normal with no signs of head trauma. EYES: PERRLA, EOMI, conjunctiva normal, no discharge. Pupils are 3 mm equal bilaterally. ENT: Hearing grossly intact, normal oropharynx. RESPIRATORY: Clear breath sounds bilaterally. No wheezes, rales, or rhonchi. C/V: Regular rate and rhythm. S1 and S2 auscultated, no edema, peripheral pulses 2+ and intact throughout ABD: Abd is soft, nontender, nondistended EXT: Normal range of motion, no obvious deformity SKIN: No rashes or lesions observed on exposed skin. NEURO: Alert and oriented x 4. Cranial nerves II-XII intact. No focal sensory or strength deficits. NIH of 0. GCS 15. Able to ambulate. Limitations: no limitations Course Vital Signs 12/28/22 12/29/22 21:17 02:43 Temperature 98.2 F Pulse Rate 77 71 Respiratory 18 16 Rate Blood Pressure 124/71 122/79 O2 Sat by Pulse 99 98 Oximetry Medical Decision Making - Medical Decision Making Was pt. sent in by a medical professional or institution (, PA, SWING SAW OPERATOR, urgent care, hospital, or prison...) When possible be specific @ -No Did you speak to anyone other than the patient for history (EMS, parent, family, police, friend...)? What history was obtained from this source @ -No Did you review nursing and triage notes (agree or disagree)? Why? @ -I reviewed and agree with nursing and triage notes Were old charts reviewed (outside hosp., previous admission, EMS record, old EKG, old radiological studies, urgent care reports/EKG's, prison records)? Report findings @ -No old charts were reviewed Differential Diagnosis (chest pain, altered mental status, abdominal pain women, abdominal pain men, vaginal bleeding, weakness, fever, dyspnea, syncope, headache, dizziness, GI bleed, back pain, seizure, CVA, palpatations, mental health, musculoskeletal)? @ -Differential Weakness: Hypoglycemia, shock, sepsis, hyponatremia, anemia, infection, SD, ETOH, adverse medicine reaction, overdose, stroke, this is not meant to be an all-inclusive list. EKG interpreted by me (3pts min.). @ -As above X-rays interpreted by me (1pt min.). @ -Chest x-ray reveals no obvious acute cardio pulmonary process. CT interpreted by me (1pt min.). @ -CT brain shows no obvious acute intracranial process. U/S interpreted by me (1pt. min.). @ -None done What testing was considered but not performed or refused? (CT, X-rays, U/S, labs)? Why? @ -None What meds were considered but not given or refused? Why? @ -None Did you discuss the management of the patient with other professionals (professionals i.e. , PA, SWING SAW OPERATOR, lab, RT, psych nurse, social services coordinator, marketing outreach coordinator, teacher, flight communications officer, family service caseworker)? Give summary @ -No Was smoking cessation discussed for >3mins.? @ -No Was critical care preformed (if so, how long)? @ -No Were there social determinants of health that impacted care today? How? (Homelessness, low income, unemployed, alcoholism, drug addiction, transportation, low edu. Level, literacy, decrease access to med. care, intermediate, rehab)? @ -No Was there de-escalation of care discussed even if they declined (Discuss DNR or withdrawal of care, Hospice)? DNR status @ -No What co-morbidities impacted this encounter? (DM, HTN, Smoking, COPD, CAD, Cancer, CVA, ARF, Chemo, Hep., AIDS, mental health diagnosis, sleep apnea, morbid obesity)? @ -None Was patient admitted / discharged? Hospital course, mention meds given and route, prescriptions, significant lab abnormalities, going to OR and other pertinent info. @ -Based on the patient's presentation and physical exam, presents with somewhat vague complaints but she believes she may be having syncopal episodes but this has been ongoing for the last year with no obvious symptoms or etiology. I did discuss obtaining a CT brain with the patient and I do have low suspicion but patient is in agreement with obtaining and at this time and she is uncertain what is causing her symptoms. We will provide her with IV fluids, as well as Benadryl and Reglan for her mild headache. Basic labs as well as Covid swab will be obtained. She was in agreement with this plan. Vital signs within acceptable limits. Exam unremarkable. EKG is unremarkable. Imaging is unremarkable. Patient's labs are also within acceptable limits. She does have blood in her urine but she is currently on her menstrual cycle. On reevaluation, patient is feeling somewhat improved. We did discuss results. As her symptoms have been chronic for over a year we discussed admission and is likely unlikely to yield any benefit at this time as she is feeling improved. Recommended continue follow-up with her PCP. She was in agreement this plan. I instructed the patient to follow up with their PCP in the next 1-3 days. I explained that the patient should return to the emergency department if they experience any worsening symptoms. Strict return precautions were discussed with the patient. The patient expressed understanding of these instructions. I answered all questions that the patient had. The patient was discharged home in good condition with their prescriptions and follow up information. Undiagnosed new problem with uncertain prognosis? @ -No Drug Therapy requiring intensive monitoring for toxicity (Heparin, Nitro, Insulin, Cardizem)? @ -No Were any procedures done? @ -No Diagnosis/symptom? @ -Lightheadedness Acute, or Chronic, or Acute on Chronic? @ -Chronic Uncomplicated (without systemic symptoms) or Complicated (systemic symptoms)? @ -complicated Side effects of treatment? @ -none Exacerbation, Progression, or Severe Exacerbation] @ -no Poses a threat to life or bodily function? @ -no - Lab Data Result diagrams: 12/28/22 22:41 12/28/22 22:41 Lab Results 12/28/22 12/28/22 12/28/22 Range/Units 22:41 22:41 22:41 WBC 9.9 (3.8-10.6) k/uL RBC 4.91 (3.80-5.40) m/uL Hgb 13.8 (11.4-16.0) gm/dL Hct 40.9 (34.0-46.0) % MCV 83.4 (80.0-100.0) fL MCH 28.1 (25.0-35.0) pg MCHC 33.7 (31.0-37.0) g/dL RDW 12.6 (11.5-15.5) % Plt Count 385 (150-450) k/uL MPV 7.8 Neutrophils % 54 % Lymphocytes % 37 % Monocytes % 5 % Eosinophils % 2 % Basophils % 0 % Neutrophils # 5.3 (1.3-7.7) k/uL Lymphocytes # 3.7 (1.0-4.8) k/uL Monocytes # 0.5 (0-1.0) k/uL Eosinophils # 0.2 (0-0.7) k/uL Basophils # 0.0 (0-0.2) k/uL Sodium 139 (137-145) mmol/L Potassium 3.9 (3.5-5.1) mmol/L Chloride 105 (98-107) mmol/L Carbon Dioxide 22 (22-30) mmol/L Anion Gap 12 mmol/L BUN 9 (7-17) mg/dL Creatinine 0.56 (0.52-1.04) mg/dL Est GFR (CKD-EPI)AfAm >90 (>60 ml/min/1.73 sqM) Est GFR (CKD-EPI)NonAf >90 (>60 ml/min/1.73 sqM) Glucose 100 H (74-99) mg/dL Plasma Lactic Acid [place] 1.5 (0.7-2.0) mmol/L Calcium 9.8 (8.4-10.2) mg/dL Total Bilirubin 0.3 (0.2-1.3) mg/dL AST 24 (14-36) U/L ALT 30 (4-34) U/L Alkaline Phosphatase 72 (38-126) U/L Total Protein 7.6 (6.3-8.2) g/dL Albumin 4.6 (3.5-5.0) g/dL TSH 1.140 (0.465-4.680) mIU/L HCG, Qual Not Detected Urine Color Urine Appearance (Clear) Urine pH (5.0-8.0) Ur Specific [place] (1.001-1.035) Urine Protein (Negative) Urine Glucose (UA) (Negative) Urine Ketones (Negative) Urine Blood (Negative) Urine Nitrite (Negative) Urine Bilirubin (Negative) Urine Urobilinogen (<2.0) mg/dL Ur Leukocyte Esterase (Negative) Urine RBC (0-5) /hpf Urine WBC (0-5) /hpf Ur Squamous Epith Cells (0-4) /hpf Urine Bacteria (None) /hpf Urine Mucus (None) /hpf Influenza Type A (PCR) (Not Detectd) Influenza Type B (PCR) (Not Detectd) RSV (PCR) (Not Detectd) SARS-CoV-2 (PCR) (Not Detectd) 12/28/22 12/29/22 Range/Units 22:41 00:54 WBC (3.8-10.6) k/uL RBC (3.80-5.40) m/uL Hgb (11.4-16.0) gm/dL Hct (34.0-46.0) % MCV (80.0-100.0) fL MCH (25.0-35.0) pg MCHC (31.0-37.0) g/dL RDW (11.5-15.5) % Plt Count (150-450) k/uL MPV Neutrophils % % Lymphocytes % % Monocytes % % Eosinophils % % Basophils % % Neutrophils # (1.3-7.7) k/uL Lymphocytes # (1.0-4.8) k/uL Monocytes # (0-1.0) k/uL Eosinophils # (0-0.7) k/uL Basophils # (0-0.2) k/uL Sodium (137-145) mmol/L Potassium (3.5-5.1) mmol/L Chloride (98-107) mmol/L Carbon Dioxide (22-30) mmol/L Anion Gap mmol/L BUN (7-17) mg/dL Creatinine (0.52-1.04) mg/dL Est GFR (CKD-EPI)AfAm (>60 ml/min/1.73 sqM) Est GFR (CKD-EPI)NonAf (>60 ml/min/1.73 sqM) Glucose (74-99) mg/dL Plasma Lactic Acid [place] (0.7-2.0) mmol/L Calcium (8.4-10.2) mg/dL Total Bilirubin (0.2-1.3) mg/dL AST (14-36) U/L ALT (4-34) U/L Alkaline Phosphatase (38-126) U/L Total Protein (6.3-8.2) g/dL Albumin (3.5-5.0) g/dL TSH (0.465-4.680) mIU/L HCG, Qual Urine Color Yellow Urine Appearance Clear (Clear) Urine pH 5.5 (5.0-8.0) Ur Specific [place] 1.017 (1.001-1.035) Urine Protein Trace H (Negative) Urine Glucose (UA) Negative (Negative) Urine Ketones Negative (Negative) Urine Blood Large H (Negative) Urine Nitrite Negative (Negative) Urine Bilirubin Negative (Negative) Urine Urobilinogen <2.0 (<2.0) mg/dL Ur Leukocyte Esterase Small H (Negative) Urine RBC 112 H (0-5) /hpf Urine WBC 4 (0-5) /hpf Ur Squamous Epith Cells 2 (0-4) /hpf Urine Bacteria Rare H (None) /hpf Urine Mucus Rare H (None) /hpf Influenza Type A (PCR) Not Detected (Not Detectd) Influenza Type B (PCR) Not Detected (Not Detectd) RSV (PCR) Not Detected (Not Detectd) SARS-CoV-2 (PCR) Not Detected (Not Detectd) - EKG Data -: EKG Interpreted by Me EKG Comments: 12-lead Electrocardiogram Interpretation Note EKG was reviewed and interpreted by myself. 12-lead ECG performed at 2246 is interpreted by me as revealing normal sinus rhythm at a rate of 66 beats per minute. [place] is normal. [place] interval is 167 ms, QRS duration is 90 ms, QTc is 400 ms.. There were no ST or T wave abnormalities to suggest myocardial ischemia or injury. R wave progression across the precordium was satisfactory. By my interpretation this EKG is non-diagnostic for acute ischemia. Disposition Clinical Impression: Lightheaded Disposition: HOME SELF-CARE Condition: Good Is patient prescribed a controlled substance at d/c from ED?: No Referrals: Faviola Castelan DO [Primary Care Provider] - 1-2 days Time of Disposition: 01:10
[2022-12-28 23:14] LABS: ALT 30 U/L (4-34); AST 24 U/L (14-36); African American GFR (CKD) >90 (>60 ml/min/1.73 sqM); Albumin 4.6 g/dL (3.5-5.0); Alkaline Phosphatase 72 U/L (38-126); Anion Gap 12 mmol/L; Blood Urea Nitrogen 9 mg/dL (7-17); Calcium 9.8 mg/dL (8.4-10.2); Carbon Dioxide 22 mmol/L (22-30); Chloride 105 mmol/L (98-107); Glucose 100 mg/dL (74-99); Non-African American GFR(CKD) >90 (>60 ml/min/1.73 sqM); Potassium 3.9 mmol/L (3.5-5.1); Sodium 139 mmol/L (137-145); Total Bilirubin 0.3 mg/dL (0.2-1.3); Total Protein 7.6 g/dL (6.3-8.2)
[2022-12-28 23:18] LABS: HCG,Qualitative Serum Not Detected
--- NOTE | 2022-12-28 23:42 | XR ---
EXAM: XR Chest, 2 Views CLINICAL HISTORY: ITS.REASON XR Reason: Weakness TECHNIQUE: Frontal and lateral views of the chest. COMPARISON: No relevant prior studies available. FINDINGS: Lungs: Unremarkable. No consolidation. Pleural space: Unremarkable. No pneumothorax. Heart: Unremarkable. No cardiomegaly. Mediastinum: Unremarkable. Bones/joints: Unremarkable. IMPRESSION: Normal chest x-rays.
--- NOTE | 2022-12-28 23:43 | CT ---
EXAM: CT Head Without Intravenous Contrast CLINICAL HISTORY: ITS.REASON CT Reason: weakness TECHNIQUE: Axial computed tomography images of the head/brain without intravenous contrast. CTDI is 49.2 mGy and DLP is 1070.4 mGy-cm. This CT exam was performed using one or more of the following dose reduction techniques: automated exposure control, adjustment of the mA and/or kV according to patient size, and/or use of iterative reconstruction technique. COMPARISON: No relevant prior studies available. FINDINGS: Brain: Unremarkable. No hemorrhage. No significant white matter disease. No edema. Ventricles: Unremarkable. No ventriculomegaly. Bones/joints: Unremarkable. No acute fracture. Soft tissues: Unremarkable. Sinuses: Unremarkable as visualized. No acute sinusitis. Mastoid air cells: Unremarkable as visualized. No mastoid effusion. IMPRESSION: Normal head/brain CT.
[2022-12-28] MEDS ORDERED: KETOROLAC 15 MG/ML 1 ML VIAL IVP STA (23:53)
[2022-12-29 01:02] LABS: Appearance,Urine Clear (Clear); Bacteria,Urine Rare /hpf; Bilirubin,Urine Negative (Negative); Blood,Urine Large (Negative); Color,Urine Yellow; Glucose,Urine (UA) Negative (Negative); Ketones,Urine Negative (Negative); Leukocyte Esterase,Urine Small (Negative); Mucus,Urine Rare /hpf; Nitrite,Urine Negative (Negative); PH, Urine 5.5 (5.0-8.0); Protein,Urine Trace (Negative); RBC,Urine 112 /hpf (0-5); Specific Gravity,Urine 1.017 (1.001-1.035); Squamous Epithelial Cell,Urine 2 /hpf (0-4); Urobilinogen,Urine <2.0 mg/dL (<2.0); WBC,Urine 4 /hpf (0-5)
[2022-12-29 02:44] VITALS: BP 122/79; PULSE 71; RESP 16
== END 2022-12-29 01:37 | disposition home or self-care (01) ==
LOC: EC 21:16
DX: R42 Dizziness and giddiness (principal); J45.909 Unspecified asthma, uncomplicated; F17.200 Nicotine dependence, unspecified, uncomplicated; Z79.899 Other long term (current) drug therapy; Z20.822 Contact with and (suspected) exposure to COVID-19; Z91.030 Bee allergy status
CPT/HCPCS: 99284; 96374; 96375 ×2; 96361; 36415; 93005; 80053; 83605; 84443; 85025; 81001; 84703; 87636; 71046; 70450; J1200; J2765; J1885

== ENCOUNTER 2023-06-09 10:03 | Emergency (ER) | payer OTHER ==
[2023-06-09 10:24] VITALS: RESP 20; TEMP 98.2
[2023-06-09] MEDS ORDERED: KETOROLAC 15 MG/ML 1 ML VIAL IM STA (12:51)
--- NOTE | 2023-06-09 14:58 | ED ---
General Adult HPI - General Chief complaint: Skin/Abscess/Foreign Body Stated complaint: Facial pain Time Seen by Provider: 06/09/23 11:50 Source: patient, RN notes reviewed Mode of arrival: ambulatory Limitations: no limitations - History of Present Illness Initial comments: 22-year-old female with no significant past medical history presents the emergency department with a chief complaint of left jaw pain. Patient reports feeling a director of restaurants lesion to her right cheek/TMJ region. She reports that it has been there the past however it has become painful patient denies any injury or trauma. She denies any fevers, chills or difficulty in breathing. She has not been taking anything for her symptoms.. - Related Data Home Medications Medication Instructions Recorded Confirmed 78/Iron/Folate 1/Dha 1 tab PO DAILY 12/12/17 09/30/21 [Prenate Dha Softgel] ondansetron HCL [Zofran] 4 mg PO Q8H PRN 07/28/21 09/30/21 Sertraline [Zoloft] 50 mg PO DAILY 09/30/21 09/30/21 Previous Rx's Medication Instructions Recorded Ibuprofen [Motrin] 800 mg PO Q6HR #30 tab 06/09/23 Allergies Allergy/AdvReac Type Severity Reaction Status Date / Time bee venom protein (honey bee) Allergy Swelling Verified 06/09/23 10:07 @site of sting Review of Systems ROS Statement: Those systems with pertinent positive or pertinent negative responses have been documented in the HPI. ROS Other: All systems not noted in ROS Statement are negative. Past Medical History Past Medical History: Asthma Additional Past Medical History / Comment(s): Eczema, hypoglycemia, POTS History of Any Multi-Drug Resistant Organisms: None Reported Past Surgical History: Adenoidectomy, Section, Tonsillectomy Past Anesthesia/Blood Transfusion Reactions: No Reported Reaction Past Psychological History: No Psychological Hx Reported Smoking Status: Current every day smoker Past Alcohol Use History: None Reported Past Drug Use History: None Reported - Past Family History Father Family Medical History: Diabetes Mellitus, Hypertension General Exam - General Exam Comments Initial Comments: General: Alert, in no acute distress Head: atraumatic normocephalic. Eyes PERRL, EOMI intact, mucous membranes moist Respiratory: Lungs clear to auscultation bilaterally Cardiovascular: Heart rate regular rate and rhythm Abdominal: Soft without guarding or rebound Extremities: Normal inspection with full range of motion and normal capillary refill Neuroogic: alert and oriented 3, CN II-XII intact, able to ambulate with steady gait Skin: warm dry and intact with normal color Limitations: no limitations Course Vital Signs 06/09/23 06/09/23 10:05 15:54 Temperature 98.2 F Pulse Rate 81 76 Respiratory 20 20 Rate Blood Pressure 130/88 124/78 O2 Sat by Pulse 98 99 Oximetry - Reevaluation(s) Reevaluation #1: 06/09/23 15:42 Patient reports symptomatic improvement status post medications. Agreeable with the plan for discharge home. Medical Decision Making - Medical Decision Making Was pt. sent in by a medical professional or institution (, PA, GRAINING OPERATOR, urgent care, hospital, or halfway...) When possible be specific @ -[No] Did you speak to anyone other than the patient for history (EMS, parent, family, police, friend...)? What history was obtained from this source @ -[No] Did you review nursing and triage notes (agree or disagree)? Why? @ -[I reviewed and agree with nursing and triage notes] Were old charts reviewed (outside hosp., previous admission, EMS record, old EKG, old radiological studies, urgent care reports/EKG's, halfway records)? Report findings @ -[No old charts were reviewed] Differential Diagnosis (chest pain, altered mental status, abdominal pain women, abdominal pain men, vaginal bleeding, weakness, fever, dyspnea, syncope, headache, dizziness, GI bleed, back pain, seizure, CVA, palpatations, mental health, musculoskeletal)? @ -[not applicable] EKG interpreted by me (3pts min.). @ -[As above] X-rays interpreted by me (1pt min.). @ -[None done] CT interpreted by me (1pt min.). @ -[None done] U/S interpreted by me (1pt. min.). @ -Ultrasound of the left mandibular area reveals 2 small lymph nodes no evidence of fluid collection What testing was considered but not performed or refused? (CT, X-rays, U/S, labs)? Why? @ -[None] What meds were considered but not given or refused? Why? @ -[None] Did you discuss the management of the patient with other professionals (professionals i.e. , PA, GRAINING OPERATOR, lab, RT, psych nurse, manager social, party plan dealer, teacher, traffic maintenance officer, case technician)? Give summary @ -[No] Was smoking cessation discussed for >3mins.? @ -[No] Was critical care preformed (if so, how long)? @ -[No] Were there social determinants of health that impacted care today? How? (Homelessness, low income, unemployed, alcoholism, drug addiction, transportation, low edu. Level, literacy, decrease access to med. care, group home, rehab)? @ -[No] Was there de-escalation of care discussed even if they declined (Discuss DNR or withdrawal of care, Hospice)? DNR status @ -[No] What co-morbidities impacted this encounter? (DM, HTN, Smoking, COPD, CAD, Cancer, CVA, ARF, Chemo, Hep., AIDS, mental health diagnosis, sleep apnea, morbid obesity)? @ -[None] Was patient admitted / discharged? Hospital course, mention meds given and route, prescriptions, significant lab abnormalities, going to OR and other pertinent info. @ -Discharged. This is a 22-year-old female who presents to the emergency department with left-sided facial pain. Patient had a thorough history and physical exam area and left jaw reveals small lymphadenopathy. Patient afebrile. Patient had ultrasound which reveals 2 small lymph nodes. I discussed results in detail with the patient verbalized understanding of questions addressed. She is agreeable with the plan for discharge home. She was provided Toradol while in the ED. Discharged in stable condition. Case discussed with Dr. Malave, ED attending who agrees with plan of care Undiagnosed new problem with uncertain prognosis? @ -[No] Drug Therapy requiring intensive monitoring for toxicity (Heparin, Nitro, Insulin, Cardizem)? @ -[No] Were any procedures done? @ -[No] Diagnosis/symptom? @ -Left Jaw Pain Acute, or Chronic, or Acute on Chronic? @ -Acute Uncomplicated (without systemic symptoms) or Complicated (systemic symptoms)? @ -Uncomplicated Side effects of treatment? @ -[No] Exacerbation, Progression, or Severe Exacerbation? @ -[No] Poses a threat to life or bodily function? How? (Chest pain, [place], [place], pneumonia, PE, COPD, DKA, ARF, appy, cholecystitis, CVA, Diverticulitis, Homicidal, Suicidal, threat to staff... and all critical care pts) @ Low likelihood Disposition Clinical Impression: Jaw pain, Lymphadenopathy Disposition: HOME SELF-CARE Condition: Stable Additional Instructions: Take Tylenol or Motrin at home for pain Can apply warm compresses to the area Monitor symptoms closely and return if worsening pain or facial swelling worsen Prescriptions: Ibuprofen [Motrin] 800 mg PO Q6HR #30 tab Is patient prescribed a controlled substance at d/c from ED?: No Referrals: Faviola Castelan DO [Primary Care Provider] - 1-2 days Time of Disposition: 15:43
--- NOTE | 2023-06-09 15:00 | US ---
EXAMINATION TYPE: US thyroid st tissue head/neck DATE OF EXAM: 06/09/2023 COMPARISON: NONE CLINICAL INDICATION: Female, 22 years old with history of left TMJ pain; Left facial pain x 4 days. P atient has felt a lump anterior to the left ear within the left face x 1 month. Scanned left face anterior to the left ear at patient's palpable area of intense pain. 2 hypoechoic areas with hyperechoic centers seen: #1 measures 0.8 x 1.0 x 1.1 cm. Cortex measures 0.5 cm. #2: measures 0.8 x 0.8 x 0.8 cm. Cortex measures 0.8 cm. IMPRESSION: There are 2 small shotty lymph nodes in the area of palpable abnormality.
[2023-06-09 16:10] VITALS: BP 124/78; PULSE 76
== END 2023-06-09 15:55 | disposition home or self-care (01) ==
LOC: EC 10:03
DX: R68.84 Jaw pain (principal); J45.909 Unspecified asthma, uncomplicated; F17.200 Nicotine dependence, unspecified, uncomplicated; Z91.030 Bee allergy status
CPT/HCPCS: 76536; 99284; 96372; J1885

== ENCOUNTER 2023-06-12 10:34 | Emergency (ER) | payer OTHER ==
[2023-06-12 10:55] VITALS: TEMP 98
[2023-06-12] MEDS ORDERED: FLUORESCEIN STRIPS 1 MG STRIP RIGHT EYE ONE (11:11)
[2023-06-12] MEDS ORDERED: PILOCARPINE 1% OPHTH DROPS 15 ML BTL LEFT EYE SCH (12:00)
[2023-06-12] MEDS ORDERED: AMOXIC-POT CLAV 875-125MG 1 EACH TAB PO STA (12:08)
--- NOTE | 2023-06-12 12:12 | ED ---
General Adult HPI - General Chief complaint: Recheck/Abnormal Lab/Rx Stated complaint: left eye pain Time Seen by Provider: 06/12/23 10:48 Source: patient, RN notes reviewed Mode of arrival: ambulatory Limitations: no limitations - History of Present Illness Initial comments: This is a [age] female who presents to the emergency department with a chief co mplaint of eye pain and left facial pain. Patient was seen and evaluated On 06/09/2023 for something similar. She did have an ultrasound which revealed small lymph nodes to left jaw area. She reports she has been applying warm compresses to the area however the last 2 days she has developed left-sided facial swelling, left eye redness and left eye tearing. She denies any injury or trauma. Denies any known fevers. He does offer she is approximately 18 weeks - Related Data Home Medications Medication Instructions Recorded Confirmed 78/Iron/Folate 1/Dha 1 tab PO DAILY 12/12/17 09/30/21 [Prenate Dha Softgel] ondansetron HCL [Zofran] 4 mg PO Q8H PRN 07/28/21 09/30/21 Sertraline [Zoloft] 50 mg PO DAILY 09/30/21 09/30/21 Previous Rx's Medication Instructions Recorded Ibuprofen [Motrin] 800 mg PO Q6HR #30 tab 06/09/23 Allergies Allergy/AdvReac Type Severity Reaction Status Date / Time bee venom protein (honey bee) Allergy Swelling Verified 06/12/23 10:38 @site of sting Review of Systems ROS Statement: Those systems with pertinent positive or pertinent negative responses have been documented in the HPI. ROS Other: All systems not noted in ROS Statement are negative. Past Medical History Past Medical History: Asthma Additional Past Medical History / Comment(s): Eczema, hypoglycemia, POTS History of Any Multi-Drug Resistant Organisms: None Reported Past Surgical History: Adenoidectomy, Section, Tonsillectomy Past Anesthesia/Blood Transfusion Reactions: No Reported Reaction Past Psychological History: No Psychological Hx Reported Smoking Status: Current every day smoker Past Alcohol Use History: None Reported Past Drug Use History: None Reported - Past Family History Father Family Medical History: Diabetes Mellitus, Hypertension General Exam - General Exam Comments Initial Comments: General: Alert, in no acute distress Head: atraumatic normocephalic. Eyes PERRL, EOMI intact, mucous membranes moist, left base with mild edema. Left eye is injected. Pupils equal and reactive bilaterally. No evidence of hyphema. Respiratory: Lungs clear to auscultation bilaterally Cardiovascular: Heart rate regular rate and rhythm Abdominal: Soft without guarding or rebound Extremities: Normal inspection with full range of motion and normal capillary refill Neuroogic: alert and oriented 3, CN II-XII intact, able to ambulate with steady gait Skin: warm dry and intact with normal color Eye exam: There is no fluorescein uptake upon exam. Intraocular eye pressures of the left eye is 10. Visual acuity left eye 30/25 Intraocular pressure of right eye 12. Visual acuity is right eye 20/25 Limitations: no limitations Course Vital Signs 06/12/23 06/12/23 10:37 13:02 Temperature 98 F Pulse Rate 81 70 Respiratory 20 16 Rate Blood Pressure 149/80 112/72 O2 Sat by Pulse 99 97 Oximetry Medical Decision Making - Medical Decision Making Was pt. sent in by a medical professional or institution (, PA, GLASSWORKER, urgent care, hospital, or halfway...) When possible be specific @ -[No] Did you speak to anyone other than the patient for history (EMS, parent, family, police, friend...)? What history was obtained from this source @ -[No] Did you review nursing and triage notes (agree or disagree)? Why? @ -[I reviewed and agree with nursing and triage notes] Were old charts reviewed (outside hosp., previous admission, EMS record, old EKG, old radiological studies, urgent care reports/EKG's, halfway records)? Report findings @ -Chart and ultrasound reviewed from 06/09/2023 Differential Diagnosis (chest pain, altered mental status, abdominal pain women, abdominal pain men, vaginal bleeding, weakness, fever, dyspnea, syncope, headache, dizziness, GI bleed, back pain, seizure, CVA, palpatations, mental health, musculoskeletal)? @ -[not applicable] EKG interpreted by me (3pts min.). @ -[As above] X-rays interpreted by me (1pt min.). @ -[None done] CT interpreted by me (1pt min.). @ -[None done] U/S interpreted by me (1pt. min.). @ -[None done] What testing was considered but not performed or refused? (CT, X-rays, U/S, labs)? Why? @ -[None] What meds were considered but not given or refused? Why? @ -[None] Did you discuss the management of the patient with other professionals (professionals i.e. , PA, GLASSWORKER, lab, RT, psych nurse, licensed master social worker, lawyer real estate, teacher, chief accounting officer, vocational case manager)? Give summary @ -[No] Was smoking cessation discussed for >3mins.? @ -[No] Was critical care preformed (if so, how long)? @ -[No] Were there social determinants of health that impacted care today? How? (Homelessness, low income, unemployed, alcoholism, drug addiction, transportation, low edu. Level, literacy, decrease access to med. care, fpc, rehab)? @ -[No] Was there de-escalation of care discussed even if they declined (Discuss DNR or withdrawal of care, Hospice)? DNR status @ -[No] What co-morbidities impacted this encounter? (DM, HTN, Smoking, COPD, CAD, Cancer, CVA, ARF, Chemo, Hep., AIDS, mental health diagnosis, sleep apnea, morbid obesity)? @ -[None] Was patient admitted / discharged? Hospital course, mention meds given and route, prescriptions, significant lab abnormalities, going to OR and other pertinent info. @ Discharge. Cephalgia 22-year-old female who presents to the emergency department with a chief complaint of left-sided facial swelling and eye pain. Patient had a thorough history and physical exam performed. Exam is essentially unremarkable. Extraocular eye pressure is 10 in the left eye. There is no fluorescine uptake There is mild injection otherwise unremarkable exam. Patient was given erythromycin ophthalmic drops. She was provided oral Augmentin. She was recommended to have close follow-up with PCP within 1-2 days. She was discharged in stable condition. Case is discussed Dr. Castelan, ED attending who agrees with plan of care Undiagnosed new problem with uncertain prognosis? @ -[No] Drug Therapy requiring intensive monitoring for toxicity (Heparin, Nitro, Insulin, Cardizem)? @ -[No] Were any procedures done? @ -[No] Diagnosis/symptom? @ -Left eye pain -Left Periorbital Cellulitis Acute, or Chronic, or Acute on Chronic? @ Acute Uncomplicated (without systemic symptoms) or Complicated (systemic symptoms)? @ -Uncomplicated Side effects of treatment? @ -[No] Exacerbation, Progression, or Severe Exacerbation? @ -[No] Poses a threat to life or bodily function? How? (Chest pain, [place], [place], pneumonia, PE, COPD, DKA, ARF, appy, cholecystitis, CVA, Diverticulitis, Homicidal, Suicidal, threat to staff... and all critical care pts) @ -No Disposition Clinical Impression: Redness of left eye, Periorbital cellulitis of left eye Disposition: HOME SELF-CARE Condition: Stable Instructions (If sedation given, give patient instructions): Orbital Cellulitis (ED), Conjunctivitis (ED) Additional Instructions: Apply erythromycin drops to left eye every 4 hours 5 days Take oral Augmentin twice a day for 10 days facial swelling Please return to the nearest emergency department if worsening pain or symptoms persist Is patient prescribed a controlled substance at d/c from ED?: No Referrals: Faviola Castelan DO [Primary Care Provider] - 1-2 days Time of Disposition: 12:11
[2023-06-12] MEDS ORDERED: ERYTHROMYCIN 5 MG/GM OPHTH OINT 3.5 GM TUBE LEFT EYE SCH (12:15)
[2023-06-12 13:26] VITALS: BP 112/72; PULSE 70; RESP 16
== END 2023-06-12 13:03 | disposition home or self-care (01) ==
LOC: EC 10:34
DX: O99.712 Diseases of the skin and subcutaneous tissue complicating pregnancy, second trimester (principal); H00.036 Abscess of eyelid left eye, unspecified eyelid; O99.512 Diseases of the respiratory system complicating pregnancy, second trimester; J45.909 Unspecified asthma, uncomplicated; O99.332 Smoking (tobacco) complicating pregnancy, second trimester; F17.200 Nicotine dependence, unspecified, uncomplicated; Z3A.18 18 weeks gestation of pregnancy; Z91.030 Bee allergy status
CPT/HCPCS: 99283

== ENCOUNTER 2023-06-29 11:39 | Emergency (ER) | payer OTHER ==
--- NOTE | 2023-06-29 12:01 | ED ---
General Adult HPI - General Chief complaint: Dizziness Stated complaint: Syncope-22wks preg Time Seen by Provider: 06/29/23 11:56 Source: patient, RN notes reviewed Mode of arrival: ambulatory Limitations: no limitations - History of Present Illness Initial comments: This is a 22 year old female who presents to the emergency department for dizziness. Patient is approximately 22 weeks and . Currently follows with Dr. Duarte, ANIMAL HUSBANDMAN. States that she was going shopping and started to develop dizziness, chest pain, and felt like she was going to pass out. The episode lasted for a couple of minutes in total. She does continue to have residual chest pain and a mild headache. Denies any hx of similar symptoms in the past. She does not have any shortness of breath, pelvic pain, or vaginal bleeding. She does note that she may have had a carbon monoxide exposure at home and inquired about testing for this as well. - Related Data Home Medications Medication Instructions Recorded Confirmed Acetaminophen [Tylenol Extra 1 tab PO Q8H PRN 06/29/23 06/29/23 Strength] Thrivite 1 tab PO HS 06/29/23 06/29/23 Allergies Allergy/AdvReac Type Severity Reaction Status Date / Time bee venom protein (honey bee) Allergy Swelling Verified 06/29/23 13:10 @site of sting Review of Systems ROS Statement: Those systems with pertinent positive or pertinent negative responses have been documented in the HPI. ROS Other: All systems not noted in ROS Statement are negative. Past Medical History Past Medical History: Asthma Additional Past Medical History / Comment(s): Eczema, hypoglycemia, POTS History of Any Multi-Drug Resistant Organisms: None Reported Past Surgical History: Adenoidectomy, Section, Tonsillectomy Past Anesthesia/Blood Transfusion Reactions: No Reported Reaction Past Psychological History: No Psychological Hx Reported Smoking Status: Current every day smoker Past Alcohol Use History: None Reported Past Drug Use History: None Reported - Past Family History Father Family Medical History: Diabetes Mellitus, Hypertension General Exam - General Exam Comments Initial Comments: Visual Physical Exam Vital signs reviewed General: Well-appearing, nontoxic, no acute distress. Head: Normocephalic, atraumatic Eyes: PERRLA, EOMI ENT: Airway patent Chest: Nonlabored breathing Skin: No visual rash, normal skin tone Neuro: Alert and oriented 3 Musculoskeletal: No gross abnormalities Limitations: no limitations General appearance: alert, in no apparent distress Head exam: Present: atraumatic, normocephalic, normal inspection Respiratory exam: Present: normal lung sounds bilaterally. Absent: respiratory distress, wheezes, rales, rhonchi, stridor Cardiovascular Exam: Present: regular rate, normal rhythm, normal heart sounds. Absent: systolic murmur, diastolic murmur, rubs, gallop, clicks Neurological exam: Present: alert, oriented X3, CN II-XII intact Psychiatric exam: Present: normal affect, normal mood Skin exam: Present: warm, dry, intact, normal color. Absent: rash Course Vital Signs 06/29/23 06/29/23 06/29/23 12:19 13:44 14:16 Temperature 98.2 F Pulse Rate 85 103 H Respiratory 16 70 H 20 Rate Blood Pressure 104/62 110/68 135/81 O2 Sat by Pulse 99 100 Oximetry 06/29/23 06/29/23 17:39 19:34 Temperature 97.9 F Pulse Rate 86 79 Respiratory 18 18 Rate Blood Pressure 106/68 106/66 O2 Sat by Pulse 97 99 Oximetry Medical Decision Making - Medical Decision Making This is a 22-year-old female who presents to the emergency department for dizziness and chest pain. Was pt. sent in by a medical professional or institution? @ -No Did you speak to anyone other than the patient for history? @ -No Did you review nursing and triage notes? @ -Yes, and I agree, it is accurate with regards to the patient's symptoms. Were old charts reviewed? @ -No Differential Diagnosis? @ -Differential Dizziness: Benign paroxysmal positional Vertigo, Menieres disease, otitis media, acoustic neuroma, vertebrobasilar insufficiency, cerebellar stroke, encephalitis, hypovolemic, arrhythmia, coronary artery syndrome, anemia, this is not meant to be an all-inclusive list EKG interpreted by me (3pts min.)? @ EKG interpreted by me demonstrating the following: Sinus rhythm. Ventricular rate 92 bpm, FL interval 148 ms, QRS duration 82 ms, QTc 394 ms. X-rays interpreted by me (1pt min.)? @ -Not obtained CT interpreted by me (1pt min.)? @ -CTA of the chest obtained. My interpretation identifies no evidence of a pulmonary embolus. U/S interpreted by me (1pt. min.)? @ -Not obtained What testing was considered but not performed? (CT, X-rays, U/S, labs)? Why? @ -None What meds were considered but not given? Why? @ -None Did you discuss the management of the patient with other professionals? @ -No Did you reconcile home meds? @ -No Was smoking cessation discussed for >3mins.? @ -No Was critical care preformed (if so, how long)? @ -No Were there social determinants of health that impacted care today? How? (Homelessness, low income, unemployed, alcoholism, drug addiction, transportation, low edu. Level, literacy, decrease access to med. care, group home, rehab)? @ -No Was there de-escalation of care discussed even if they declined? (Discuss DNR or withdrawal of care, Hospice)? @ -No What co-morbidities impacted this encounter? (DM, HTN, Smoking, COPD, CAD, Cancer, CVA, Hep., AIDS, mental health diagnosis, sleep apnea, morbid obesity)? @ - Was patient admitted / discharged? @ -Discharged. Lab work obtained revealing leukocytosis, elevated d-dimer of 0.81, and was otherwise fairly unremarkable. Covid, influenza, and RSV testing were negative. Urinalysis negative for signs of infection. Patient given IV fluids, Tylenol, and Benadryl for the headache and chest pain without much improvement. Given her ongoing symptoms and elevated d-dimer, we discussed the option of a computed tomography scan for evaluation of a pulmonary embolus. She was informed of radiation risks and risks of exposure to radiation. Patient wishes to proceed. CTA identified no evidence of a pulmonary embolus or other acute abnormalities to account for her symptoms. heart tones auscultated and found to be WNL at 150-160 BPM. Her blood pressure was well- controlled there was no evidence of preeclampsia. Advised that the cause of her symptoms is not entirely clear. Her pain may be related to changes in and the expansion of her uterus pressing up on the diaphragm. Advised Tylenol as needed for pain relief, getting plenty of rest, drinking plenty of fluids, and contacting her ANIMAL HUSBANDMAN for a follow-up appointment and reevaluation of ongoing symptoms. Undiagnosed new problem with uncertain prognosis? @ -None Drug Therapy requiring intensive monitoring for toxicity (Heparin, Nitro, Insulin, Cardizem)? @ -None Were any procedures done? @ -None Diagnosis/symptom? @ -Chest pain in , headache Acute, or Chronic, or Acute on Chronic? @ -Acute Uncomplicated (without systemic symptoms) or Complicated (systemic symptoms)? @ -Uncomplicated Side effects of treatment? @ -None Exacerbation, Progression, or Severe Exacerbation] @ -Not applicable Poses a threat to life or bodily function? @ -Unlikely Return precautions reviewed in depth, the patient is instructed to return to the emergency department with any new, worsening, or concerning symptoms. Patient verbalized understanding. This case was discussed in detail with the attending ED physician, Dr. Jordan. P resentation, findings, and treatment plan discussed in detail as well. - Lab Data Result diagrams: 06/29/23 13:00 06/29/23 13:00 Lab Results 06/29/23 06/29/23 06/29/23 Range/Units 13:00 13:00 13:00 WBC 17.2 H (3.8-10.6) k/uL RBC 5.04 (3.80-5.40) m/uL Hgb 14.8 (11.4-16.0) gm/dL Hct 43.2 (34.0-46.0) % MCV 85.7 (80.0-100.0) fL MCH 29.3 (25.0-35.0) pg MCHC 34.2 (31.0-37.0) g/dL RDW 14.0 (11.5-15.5) % Plt Count 395 (150-450) k/uL MPV 8.0 Neutrophils % 83 % Lymphocytes % 12 % Monocytes % 2 % Eosinophils % 1 % Basophils % 0 % Neutrophils # 14.3 H (1.3-7.7) k/uL Lymphocytes # 2.1 (1.0-4.8) k/uL Monocytes # 0.3 (0-1.0) k/uL Eosinophils # 0.2 (0-0.7) k/uL Basophils # 0.0 (0-0.2) k/uL PT (10.0-12.5) sec INR (<1.2) APTT (22.0-30.0) sec D-Dimer (<0.60) mg/L FEU VBG pH (7.31-7.41) VBG pCO2 (37-51) mmHg VBG HCO3 (24-28) mmol/L Carbon Monoxide, Quant (<10.0) % Sodium 137 (137-145) mmol/L Potassium 4.5 (3.5-5.1) mmol/L Chloride 104 (98-107) mmol/L Carbon Dioxide 18 L (22-30) mmol/L Anion Gap 15 mmol/L BUN 4 L (7-17) mg/dL Creatinine 0.32 L (0.52-1.04) mg/dL Est GFR (CKD-EPI)AfAm >90 (>60 ml/min/1.73 sqM) Est GFR (CKD-EPI)NonAf >90 (>60 ml/min/1.73 sqM) Glucose 96 (74-99) mg/dL Calcium 10.0 (8.4-10.2) mg/dL Magnesium (1.6-2.3) mg/dL Total Bilirubin 0.6 (0.2-1.3) mg/dL AST 21 (14-36) U/L ALT 18 (4-34) U/L Alkaline Phosphatase 87 (38-126) U/L Troponin I <0.012 (0.000-0.034) ng/mL Total Protein 8.3 H (6.3-8.2) g/dL Albumin 4.7 (3.5-5.0) g/dL HCG, Quant 12019.4 mIU/mL Urine Color Urine Appearance (Clear) Urine pH (5.0-8.0) Ur Specific [place] (1.001-1.035) Urine Protein (Negative) Urine Glucose (UA) (Negative) Urine Ketones (Negative) Urine Blood (Negative) Urine Nitrite (Negative) Urine Bilirubin (Negative) Urine Urobilinogen (<2.0) mg/dL Ur Leukocyte Esterase (Negative) Influenza Type A (PCR) (Not Detectd) Influenza Type B (PCR) (Not Detectd) RSV (PCR) (Not Detectd) SARS-CoV-2 (PCR) (Not Detectd) 06/29/23 06/29/23 06/29/23 Range/Units 13:00 13:00 13:00 WBC (3.8-10.6) k/uL RBC (3.80-5.40) m/uL Hgb (11.4-16.0) gm/dL Hct (34.0-46.0) % MCV (80.0-100.0) fL MCH (25.0-35.0) pg MCHC (31.0-37.0) g/dL RDW (11.5-15.5) % Plt Count (150-450) k/uL MPV Neutrophils % % Lymphocytes % % Monocytes % % Eosinophils % % Basophils % % Neutrophils # (1.3-7.7) k/uL Lymphocytes # (1.0-4.8) k/uL Monocytes # (0-1.0) k/uL Eosinophils # (0-0.7) k/uL Basophils # (0-0.2) k/uL PT (10.0-12.5) sec INR (<1.2) APTT (22.0-30.0) sec D-Dimer (<0.60) mg/L FEU VBG pH (7.31-7.41) VBG pCO2 (37-51) mmHg VBG HCO3 (24-28) mmol/L Carbon Monoxide, Quant (<10.0) % Sodium (137-145) mmol/L Potassium (3.5-5.1) mmol/L Chloride (98-107) mmol/L Carbon Dioxide (22-30) mmol/L Anion Gap mmol/L BUN (7-17) mg/dL Creatinine (0.52-1.04) mg/dL Est GFR (CKD-EPI)AfAm (>60 ml/min/1.73 sqM) Est GFR (CKD-EPI)NonAf (>60 ml/min/1.73 sqM) Glucose (74-99) mg/dL Calcium (8.4-10.2) mg/dL Magnesium 2.1 (1.6-2.3) mg/dL Total Bilirubin (0.2-1.3) mg/dL AST (14-36) U/L ALT (4-34) U/L Alkaline Phosphatase (38-126) U/L Troponin I (0.000-0.034) ng/mL Total Protein (6.3-8.2) g/dL Albumin (3.5-5.0) g/dL HCG, Quant mIU/mL Urine Color Colorless Urine Appearance Clear (Clear) Urine pH 6.5 (5.0-8.0) Ur Specific [place] 1.002 (1.001-1.035) Urine Protein Negative (Negative) Urine Glucose (UA) Negative (Negative) Urine Ketones Negative (Negative) Urine Blood Negative (Negative) Urine Nitrite Negative (Negative) Urine Bilirubin Negative (Negative) Urine Urobilinogen <2.0 (<2.0) mg/dL Ur Leukocyte Esterase Negative (Negative) Influenza Type A (PCR) Not Detected (Not Detectd) Influenza Type B (PCR) Not Detected (Not Detectd) RSV (PCR) Not Detected (Not Detectd) SARS-CoV-2 (PCR) Not Detected (Not Detectd) 06/29/23 06/29/23 06/29/23 Range/Units 13:39 14:16 15:58 WBC (3.8-10.6) k/uL RBC (3.80-5.40) m/uL Hgb (11.4-16.0) gm/dL Hct (34.0-46.0) % MCV (80.0-100.0) fL MCH (25.0-35.0) pg MCHC (31.0-37.0) g/dL RDW (11.5-15.5) % Plt Count (150-450) k/uL MPV Neutrophils % % Lymphocytes % % Monocytes % % Eosinophils % % Basophils % % Neutrophils # (1.3-7.7) k/uL Lymphocytes # (1.0-4.8) k/uL Monocytes # (0-1.0) k/uL Eosinophils # (0-0.7) k/uL Basophils # (0-0.2) k/uL PT 9.8 L (10.0-12.5) sec INR 0.9 (<1.2) APTT 21.6 L (22.0-30.0) sec D-Dimer 0.81 H (<0.60) mg/L FEU VBG pH 7.35 (7.31-7.41) VBG pCO2 40 (37-51) mmHg VBG HCO3 22 L (24-28) mmol/L Carbon Monoxide, Quant 2.5 (<10.0) % Sodium (137-145) mmol/L Potassium (3.5-5.1) mmol/L Chloride (98-107) mmol/L Carbon Dioxide (22-30) mmol/L Anion Gap mmol/L BUN (7-17) mg/dL Creatinine (0.52-1.04) mg/dL Est GFR (CKD-EPI)AfAm (>60 ml/min/1.73 sqM) Est GFR (CKD-EPI)NonAf (>60 ml/min/1.73 sqM) Glucose (74-99) mg/dL Calcium (8.4-10.2) mg/dL Magnesium (1.6-2.3) mg/dL Total Bilirubin (0.2-1.3) mg/dL AST (14-36) U/L ALT (4-34) U/L Alkaline Phosphatase (38-126) U/L Troponin I (0.000-0.034) ng/mL Total Protein (6.3-8.2) g/dL Albumin (3.5-5.0) g/dL HCG, Quant mIU/mL Urine Color Urine Appearance (Clear) Urine pH (5.0-8.0) Ur Specific [place] (1.001-1.035) Urine Protein (Negative) Urine Glucose (UA) (Negative) Urine Ketones (Negative) Urine Blood (Negative) Urine Nitrite (Negative) Urine Bilirubin (Negative) Urine Urobilinogen (<2.0) mg/dL Ur Leukocyte Esterase (Negative) Influenza Type A (PCR) (Not Detectd) Influenza Type B (PCR) (Not Detectd) RSV (PCR) (Not Detectd) SARS-CoV-2 (PCR) (Not Detectd) - Radiology Data Radiology results: report reviewed, image reviewed Disposition Clinical Impression: Chest pain during , Headache Disposition: HOME SELF-CARE Condition: Stable Instructions (If sedation given, give patient instructions): Chest Pain (ED) Additional Instructions: Return to the emergency department with any new, worsening, or concerning symptoms. Take Tylenol as needed for any additional headaches. Make sure that you get plenty of rest and drink lots of fluids. Contact your ANIMAL HUSBAND[facility] tomorrow morning to see if they can schedule you for a sooner follow up appointment or if they have any recommendations. Follow up with your primary care provider in 1-2 days. Is patient prescribed a controlled substance at d/c from ED?: No Referrals: Faviola Castelan DO [Primary Care Provider] - 1-2 days Mary Duarte MD [STAFF PHYSICIAN] - 1-2 days Time of Disposition: 19:25
[2023-06-29] MEDS ORDERED: diphenhydrAMINE 50 MG/ML 1 ML VIAL IVP STA (13:20)
[2023-06-29] MEDS ORDERED: SODIUM CHLORIDE 0.9% 2,000 ML IV STA (13:20)
[2023-06-29] MEDS ORDERED: ACETAMINOPHEN IV (For NPO) 1,000 MG in EMPTY BAG 1 BAG IVPB STA (13:20)
[2023-06-29 13:32] LABS: Appearance,Urine Clear (Clear); Bilirubin,Urine Negative (Negative); Blood,Urine Negative (Negative); Color,Urine Colorless; Glucose,Urine (UA) Negative (Negative); Ketones,Urine Negative (Negative); Leukocyte Esterase,Urine Negative (Negative); Nitrite,Urine Negative (Negative); PH, Urine 6.5 (5.0-8.0); Protein,Urine Negative (Negative); Specific Gravity,Urine 1.002 (1.001-1.035); Urobilinogen,Urine <2.0 mg/dL (<2.0)
[2023-06-29 13:45] LABS: Basophils % (A) 0 %; Eosinophils # (A) 0.2 k/uL (0-0.7); Eosinophils % (A) 1 %; HCT 43.2 % (34.0-46.0); HGB 14.8 gm/dL (11.4-16.0); Lymphocytes # (A) 2.1 k/uL (1.0-4.8); Lymphocytes % (A) 12 %; MCH 29.3 pg (25.0-35.0); MCHC 34.2 g/dL (31.0-37.0); MCV 85.7 fL (80.0-100.0); Monocytes # (A) 0.3 k/uL (0-1.0); Monocytes % (A) 2 %; Neutrophils # (A) 14.3 k/uL (1.3-7.7); Neutrophils % (A) 83 %; Platelet Count 395 k/uL (150-450); RBC 5.04 m/uL (3.80-5.40); WBC 17.2 k/uL (3.8-10.6)
[2023-06-29 13:57] LABS: ALT 18 U/L (4-34); AST 21 U/L (14-36); African American GFR (CKD) >90 (>60 ml/min/1.73 sqM); Albumin 4.7 g/dL (3.5-5.0); Alkaline Phosphatase 87 U/L (38-126); Anion Gap 15 mmol/L; Blood Urea Nitrogen 4 mg/dL (7-17); Carbon Dioxide 18 mmol/L (22-30); Chloride 104 mmol/L (98-107); Glucose 96 mg/dL (74-99); Non-African American GFR(CKD) >90 (>60 ml/min/1.73 sqM); Potassium 4.5 mmol/L (3.5-5.1); Sodium 137 mmol/L (137-145); Total Bilirubin 0.6 mg/dL (0.2-1.3); Total Protein 8.3 g/dL (6.3-8.2)
[2023-06-29 14:13] LABS: HCG,Quantitative Serum 13724.4 mIU/mL
[2023-06-29 15:03] LABS: VBG PH 7.35 (7.31-7.41)
[2023-06-29] MEDS ORDERED: SODIUM CHLORIDE 0.9% IVPB ONE (15:45)
[2023-06-29] MEDS ORDERED: CAFFEINE SODIUM BENZOATE IVPB ONE (15:45)
[2023-06-29 16:49] LABS: INR 0.9 (<1.2); Prothrombin Time 9.8 sec (10.0-12.5)
[2023-06-29 16:53] LABS: Partial Thromboplastin Time 21.6 sec (22.0-30.0)
[2023-06-29 17:55] VITALS: RESP 18; TEMP 97.9
--- NOTE | 2023-06-29 18:40 | CT ---
CT CHEST FOR PULMONARY EMBOLISM. EXAMINATION TYPE: CT chest angio for PE DATE OF EXAM: 06/29/2023 INDICATION: CP, MAGALIS, Elevated D-dimer in . CT DLP: 521.9 mGycm, Automated exposure control for dose reduction was used. CONTRAST: Patient injected with 100 ml mL of Isovue 300. COMPARISON: None TECHNIQUE: CT of the chest is performed on a spiral scan at 2 mm thick sections. Study is performed with intravenous contrast timed for evaluation for pulmonary embolism. This will limit additional po rtions of the evaluation. 3-D MIP images reconstructed by the technologist are reviewed on the compu ter in the coronal and sagittal planes. Timing is somewhat suboptimal with some limitation on distal pulmonary artery evaluation. FINDINGS: No persistent filling defects are evident to suggest an acute pulmonary embolism. No mediastinal or hilar adenopathy enlarged by CT criteria is evident. There are scattered large lef t axillary lymph nodes. The largest measures 1.2 cm. Scattered smaller right axillary lymph nodes are present. The ascending aorta diameter at the level of the main pulmonary artery is 3.2 cm. The main pulmonary artery diameter at the bifurcation is 2.4 cm. Lung windows are clear. Limited CT section through the upper abdomen are unremarkable. Radiation safety with the risks versus benefit was discussed with the patient by the technologist shayy or to imaging. IMPRESSION: 1. No acute pulmonary embolism radiographically apparent. There is some limitation due to contrast de nsity. Peripheral pulmonary emboli may not be well evaluated. 2. Prominent left axillary lymphadenopathy.
[2023-06-29 19:48] VITALS: BP 106/66; PULSE 79
== END 2023-06-29 19:36 | disposition home or self-care (01) ==
LOC: EC 11:39
DX: O26.892 Other specified pregnancy related conditions, second trimester (principal); R07.9 Chest pain, unspecified; O99.891 Other specified diseases and conditions complicating pregnancy; R51.9 Headache, unspecified; O99.512 Diseases of the respiratory system complicating pregnancy, second trimester; J45.909 Unspecified asthma, uncomplicated; O99.332 Smoking (tobacco) complicating pregnancy, second trimester; F17.200 Nicotine dependence, unspecified, uncomplicated; Z3A.22 22 weeks gestation of pregnancy; Z20.822 Contact with and (suspected) exposure to COVID-19; Z91.030 Bee allergy status
CPT/HCPCS: 36415; 93005; 85379; 80053; 82375; 82803; 83735; 84484; 85025; 85610; 85730; 81003; 84702; 87636; 71275; 99285; 96365; 96367; 96375; J1200; J0131; Q9967

== ENCOUNTER 2023-08-27 09:37 | Outpatient (CLI) | payer OTHER ==
[2023-08-27] MEDS: LACTATED RINGERS 1,000 ML IV SCH (10:12)
[2023-08-27 10:57] LABS: Appearance,Urine Cloudy (Clear); Bilirubin,Urine Negative (Negative); Blood,Urine Negative (Negative); Color,Urine Yellow; Glucose,Urine (UA) 3+ (Negative); Ketones,Urine Trace (Negative); Leukocyte Esterase,Urine Large (Negative); Mucus,Urine Rare /hpf; Nitrite,Urine Negative (Negative); PH, Urine 6.5 (5.0-8.0); Protein,Urine 1+ (Negative); RBC,Urine 1 /hpf (0-5); Specific Gravity,Urine 1.027 (1.001-1.035); Squamous Epithelial Cell,Urine 15 /hpf (0-4); Urobilinogen,Urine <2.0 mg/dL (<2.0); WBC,Urine 8 /hpf (0-5)
--- NOTE | 2023-08-27 11:01 | US ---
EXAMINATION TYPE: US OB >= 14 wk fetus DATE OF EXAM: 08/27/2023 COMPARISON: None CLINICAL INDICATION: Female, 22 years old with history of rule out placental abruption; Pt states ABD pain with TECHNIQUE: Transabdominal (TA) GESTATIONAL AGE / DATING Physician Established: (30 weeks/2 days) EDC: 11/03/2023 Dates by LMP: (30 weeks/2 days) EDC: 11/03/2023 Dates by First Scan: No previous this is first scan Dates by Current Scan: (30 weeks/5 days) EDC: 10/31/2023 SURVEY IUP: Single PLACENTA: Fundal PREVIA: No Previa RASHMI: 14.9 cm Normal CERVICAL LENGTH (transabdominal: norm > 3.0cm): Unable to image cervical length due to head low and bladder empty- TV not performed- L&D aware BIOMETRY PRESENTATION: Vertex BPD: 7.4 cm 29 weeks / 4 days HC: 29.1 cm 32 weeks / 1 days AC: 28.0 cm 32 weeks / 1 days FL: 5.5 cm 28 weeks / 6 days ESTIMATED WEIGHT IN GRAMS: 1655 grams ESTIMATED WEIGHT IN LBS/OZ: 3 lbs. 10 oz. WEIGHT PERCENTAGE BASED ON ESTABLISHED DATES: 58% HC/AC: 1.04 Normal FL/AC: 20 Normal HEART RATE: 149 bpm RHYTHM: Normal [employer] notes: Single, viable IUP/ No evidence of placental abruption at this moment in time IMPRESSION: 1. Single living intrauterine with estimated gestational age of 30 weeks 2 days by LMP. [facility] biometry is concordant (30 weeks 5 days) placing the child at the 58th percentile for weight. 2. Unable to assess cervical length due to head low in position and empty bladder. Transvaginal scanning not performed. 3. No placental abruption identified by ultrasound.
[2023-08-27 12:16] LABS: Basophils % (A) 0 %; Eosinophils # (A) 0.2 k/uL (0-0.7); Eosinophils % (A) 1 %; HCT 33.5 % (34.0-46.0); Lymphocytes # (A) 1.8 k/uL (1.0-4.8); Lymphocytes % (A) 14 %; MCH 28.5 pg (25.0-35.0); MCHC 33.5 g/dL (31.0-37.0); MCV 85.1 fL (80.0-100.0); Mean Platelet Volume 8.7; Monocytes # (A) 0.7 k/uL (0-1.0); Monocytes % (A) 6 %; Neutrophils # (A) 9.3 k/uL (1.3-7.7); Neutrophils % (A) 76 %; Platelet Count 283 k/uL (150-450); RBC 3.94 m/uL (3.80-5.40); RDW 14.4 % (11.5-15.5); WBC 12.2 k/uL (3.8-10.6)
[2023-08-27 12:17] LABS: HGB 11.2 gm/dL (11.4-16.0)
[2023-08-27 12:53] VITALS: BP 123/62; PULSE 83; RESP 16; TEMP 97.1
== END 2023-08-27 12:30 | disposition home or self-care (01) ==
LOC: FBPOP 09:37
PROVIDERS: ATTEND Obstetrics & Gynecology
DX: O60.03 Preterm labor without delivery, third trimester (principal); Z3A.30 30 weeks gestation of pregnancy; Z91.030 Bee allergy status; Z87.891 Personal history of nicotine dependence
CPT/HCPCS: 59025; 85025; 81001; 76805; G0463; 99214

== ENCOUNTER 2023-09-09 21:00 | Emergency (ER) | payer OTHER ==
[2023-09-09] MEDS: ACETAMINOPHEN TAB 500 MG TAB PO STA (21:29)
[2023-09-09] MEDS: SODIUM CHLORIDE 0.9% 500 ML 500 ML IV SCH (21:31)
[2023-09-09 22:10] LABS: Basophils % (A) 0 %; Eosinophils # (A) 0.1 k/uL (0-0.7); Eosinophils % (A) 1 %; HCT 36.4 % (34.0-46.0); Lymphocytes # (A) 0.7 k/uL (1.0-4.8); Lymphocytes % (A) 6 %; MCH 27.6 pg (25.0-35.0); MCHC 32.9 g/dL (31.0-37.0); Mean Platelet Volume 8.6; Monocytes # (A) 0.6 k/uL (0-1.0); Monocytes % (A) 6 %; Neutrophils # (A) 8.7 k/uL (1.3-7.7); Neutrophils % (A) 86 %; Platelet Count 219 k/uL (150-450); RBC 4.33 m/uL (3.80-5.40); RDW 14.3 % (11.5-15.5); WBC 10.2 k/uL (3.8-10.6)
--- NOTE | 2023-09-09 22:10 | ED ---
General Adult HPI - General Chief complaint: Weakness Stated complaint: weakness fever 32 weeks Time Seen by Provider: 09/09/23 21:16 Source: patient Mode of arrival: ambulatory Limitations: no limitations - History of Present Illness Initial comments: López is a 32-year-old female currently 32 weeks recently diagnosed with gestational diabetes. Patient reports she was in her usual state of health earlier today she had a mild runny nose but no other complaints. She saw her OB as planned and was diagnosed with gestational diabetes and has a plan for close monitoring and follow-up. Patient states that she went home from her appoin [facility] around 4 PM today she suddenly just felt very ill, she states she felt like her heart was racing she is having trouble breathing she had a fever she felt generalized weakness her runny stuffy nose got worse she got a sore throat. Patient did not know what she should do or what was safe to take so she did not take any antipyretics and came directly to the ER. - Related Data Home Medications Medication Instructions Recorded Confirmed Acetaminophen [Tylenol Extra 1 tab PO Q8H PRN 06/29/23 08/27/23 Strength] Thrivite 1 tab PO HS 06/29/23 08/27/23 Vit No.179/Iron/Folic 1 tab PO DAILY 08/27/23 08/27/23 [ Tablet] Previous Rx's Medication Instructions Recorded Oseltamivir [Tamiflu] 75 mg PO Q12HR 5 Days #10 cap 09/10/23 Allergies Allergy/AdvReac Type Severity Reaction Status Date / Time bee venom protein (honey bee) Allergy Swelling Verified 06/29/23 13:10 @site of sting Review of Systems ROS Statement: Those systems with pertinent positive or pertinent negative responses have been documented in the HPI. ROS Other: All systems not noted in ROS Statement are negative. Past Medical History Past Medical History: Asthma Additional Past Medical History / Comment(s): Eczema, hypoglycemia, POTS History of Any Multi-Drug Resistant Organisms: None Reported Past Surgical History: Adenoidectomy, Section, Tonsillectomy Past Anesthesia/Blood Transfusion Reactions: No Reported Reaction Past Psychological History: No Psychological Hx Reported Smoking Status: Vaper Past Alcohol Use History: None Reported Past Drug Use History: None Reported - Past Family History Father Family Medical History: Diabetes Mellitus, Hypertension General Exam - General Exam Comments Initial Comments: Physical Exam GENERAL: Patient is well-developed and well-nourished. Ill-appearing febrile HENT: Normocephalic, Atraumatic. EYES: PERRL, EOMI PULMONARY: Tachypneic but unlabored respirations. No audible rales rhonchi or wheezing was noted. CARDIOVASCULAR: Tachycardic, regular, warm and well-perfused extremities ABDOMEN: Gravid abdomen Soft and nontender with normal bowel sounds. SKIN: Skin is clear with no lesions or rashes and otherwise unremarkable. : Deferred NEUROLOGIC: Patient is alert and oriented x3. Moving all extremities spontaneously MUSCULOSKELETAL: Normal extremities with adequate strength and full range of motion. No lower extremity swelling or edema. No calf tenderness. PSYCHIATRIC: Normal psychiatric evaluation. Limitations: no limitations Course Vital Signs 09/09/23 09/09/23 09/09/23 21:02 21:15 23:16 Temperature 100.2 F H 99.4 F Pulse Rate 135 H 116 H Respiratory 18 18 18 Rate Blood Pressure 111/73 108/51 O2 Sat by Pulse 97 98 Oximetry 09/10/23 00:30 Temperature 98.0 F Pulse Rate 122 H Respiratory 20 Rate Blood Pressure O2 Sat by Pulse 99 Oximetry EKG Findings - EKG Comments: EKG Findings:: EKG interpreted by mn EKG obtained due to tachycardia EKG obtained at 2114 rate is 132 rhythm is sinus tachycardia normal axis normal intervals, UT 145 QRS 88 QTc [address] elevations depressions no evidence of acute ischemia infarction or pathologic arrhythmia. Medical Decision Making - Medical Decision Making Was pt. sent in by a medical professional or institution (, PA, STRIP ROLLER, urgent care, hospital, or residential...) When possible be specific @ -No Did you speak to anyone other than the patient for history (EMS, parent, family, police, friend...)? What history was obtained from this source @ -Spouse Did you review nursing and triage notes (agree or disagree)? Why? @ -I reviewed and agree with nursing and triage notes Were old charts reviewed (outside hosp., previous admission, EMS record, old EKG , old radiological studies, urgent care reports/EKG's, residential records)? Report findings @ -No old charts were reviewed Differential Diagnosis (chest pain, altered mental status, abdominal pain women, abdominal pain men, vaginal bleeding, weakness, fever, dyspnea, syncope, headache, dizziness, GI bleed, back pain, seizure, CVA, palpatations, mental health)? @ -Differential Fever: Pneumonia, viral URI, endocarditis, myocarditis, pericarditis, otitis, sinusitis, peritonsillar Abscess, retropharyngeal Abscess, epiglottitis, peritonitis, appendicitis, Kandy cystitis, diverticulitis, hepatitis, colitis, UTI, PID, TOA, pyelonephritis, prostatitis, epididymitis, meningitis, encephalitis, pulmonary embolism, CVA, thyroid storm, pancreatitis, adrenal crisis, cavernous sinus thrombosis, this is not meant to be an all-inclusive list. EKG interpreted by me (3pts min.). @ -As above X-rays interpreted by me (1pt min.). @ -No acute process CT interpreted by me (1pt min.). @ -None done U/S interpreted by me (1pt. min.). @ -None done What testing was considered but not performed or refused? (CT, X-rays, U/S, labs)? Why? @ -None What meds were considered but not given or refused? Why? @ -None Did you discuss the management of the patient with other professionals (professionals i.e. , PA, STRIP ROLLER, lab, RT, psych nurse, social security specialist, renewable energy trader, teacher, staff nuclear weapons officer, corrections caseworker)? Give summary @ -Discussed with on-call OB Dr. Groves Was smoking cessation discussed for >3mins.? @ -No Was critical care preformed (if so, how long)? @ -No Were there social determinants of health that impacted care today? How? (Homelessness, low income, unemployed, alcoholism, drug addiction, tr ansportation, low edu. Level, literacy, decrease access to med. care, nursing home, rehab)? @ -No Was there de-escalation of care discussed even if they declined (Discuss DNR or withdrawal of care, Hospice)? DNR status @ -No What co-morbidities impacted this encounter? (DM, HTN, Smoking, COPD, CAD, Cancer, CVA, ARF, Chemo, Hep., AIDS, mental health diagnosis, sleep apnea, morbid obesity)? @ -, obesity Was patient admitted / discharged? Hospital course, mention meds given and route, prescriptions, significant lab abnormalities, going to OR and other pertinent info. @ -Discharged The patient was seen and evaluated history and physical exam are concerning for likely influenza. Labs were obtained patient was treated with Tylenol and IV fluids. Labs resulted with hypokalemia and IV and p.o. replacement were ordered. Patient is positive for influenza and was treated with Tamiflu. Pat roberto's fever decreased however she remained mildly tachycardic with a heart rate in 110s, patient continued to complain of feeling unwell. Patient care was discussed with Dr. Groves who agreed with treatment plan and recommended an NST and if within normal limits patient can be discharged home with supportive care. An NST was performed and was reactive. At this time patient is stable for discharge home with supportive care. Undiagnosed new problem with uncertain prognosis? @ -No Drug Therapy requiring intensive monitoring for toxicity (Heparin, Nitro, Insulin, Cardizem)? @ -No Were any procedures done? @ -No Diagnosis/symptom? @ -Influenza and third trimester Acute, or Chronic, or Acute on Chronic? @ -Acute Uncomplicated (without systemic symptoms) or Complicated (systemic symptoms)? @ -Complicated Side effects of treatment? @ -No Exacerbation, Progression, or Severe Exacerbation? @ -No Poses a threat to life or bodily function? How? (Chest pain, [place], [place], pneumonia, PE, COPD, DKA, ARF, appy, cholecystitis, CVA, Diverticulitis, Homicidal, Suicidal, threat to staff... and all critical care pts) @ -Unlikely but potential to progress - Lab Data Result diagrams: 09/09/23 21:51 09/09/23 21:51 Lab Results 09/09/23 09/09/23 09/09/23 Range/Units 21:51 21:51 21:51 WBC 10.2 (3.8-10.6) k/uL RBC 4.33 (3.80-5.40) m/uL Hgb 12.0 (11.4-16.0) gm/dL Hct 36.4 (34.0-46.0) % MCV 84.0 (80.0-100.0) fL MCH 27.6 (25.0-35.0) pg MCHC 32.9 (31.0-37.0) g/dL RDW 14.3 (11.5-15.5) % Plt Count 219 (150-450) k/uL MPV 8.6 Neutrophils % 86 % Lymphocytes % 6 % Monocytes % 6 % Eosinophils % 1 % Basophils % 0 % Neutrophils # 8.7 H (1.3-7.7) k/uL Lymphocytes # 0.7 L (1.0-4.8) k/uL Monocytes # 0.6 (0-1.0) k/uL Eosinophils # 0.1 (0-0.7) k/uL Basophils # 0.0 (0-0.2) k/uL Sodium 132 L (137-145) mmol/L Potassium 2.9 L (3.5-5.1) mmol/L Chloride 105 (98-107) mmol/L Carbon Dioxide 16 L (22-30) mmol/L Anion Gap 11 mmol/L BUN <2 L (7-17) mg/dL Creatinine 0.29 L (0.52-1.04) mg/dL Est GFR (CKD-EPI)AfAm >90 (>60 ml/min/1.73 sqM) Est GFR (CKD-EPI)NonAf >90 (>60 ml/min/1.73 sqM) Glucose 166 H (74-99) mg/dL Lactic Ac Sepsis Rflx Plasma Lactic Acid Christiano 2.5 H* (0.7-2.0) mmol/L Calcium 8.9 (8.4-10.2) mg/dL Total Bilirubin 0.8 (0.2-1.3) mg/dL AST 44 H (14-36) U/L ALT 23 (4-34) U/L Alkaline Phosphatase 120 (38-126) U/L Total Protein 6.1 L (6.3-8.2) g/dL Albumin 3.2 L (3.5-5.0) g/dL Influenza Type A (PCR) (Not Detectd) Influenza Type B (PCR) (Not Detectd) RSV (PCR) (Not Detectd) SARS-CoV-2 (PCR) (Not Detectd) 09/09/23 09/09/23 Range/Units 21:51 22:37 WBC (3.8-10.6) k/uL RBC (3.80-5.40) m/uL Hgb (11.4-16.0) gm/dL Hct (34.0-46.0) % MCV (80.0-100.0) fL MCH (25.0-35.0) pg MCHC (31.0-37.0) g/dL RDW (11.5-15.5) % Plt Count (150-450) k/uL MPV Neutrophils % % Lymphocytes % % Monocytes % % Eosinophils % % Basophils % % Neutrophils # (1.3-7.7) k/uL Lymphocytes # (1.0-4.8) k/uL Monocytes # (0-1.0) k/uL Eosinophils # (0-0.7) k/uL Basophils # (0-0.2) k/uL Sodium (137-145) mmol/L Potassium (3.5-5.1) mmol/L Chloride (98-107) mmol/L Carbon Dioxide (22-30) mmol/L Anion Gap mmol/L BUN (7-17) mg/dL Creatinine (0.52-1.04) mg/dL Est GFR (CKD-EPI)AfAm (>60 ml/min/1.73 sqM) Est GFR (CKD-EPI)NonAf (>60 ml/min/1.73 sqM) Glucose (74-99) mg/dL Lactic Ac Sepsis Rflx Y Plasma Lactic Acid Christiano (0.7-2.0) mmol/L Calcium (8.4-10.2) mg/dL Total Bilirubin (0.2-1.3) mg/dL AST (14-36) U/L ALT (4-34) U/L Alkaline Phosphatase (38-126) U/L Total Protein (6.3-8.2) g/dL Albumin (3.5-5.0) g/dL Influenza Type A (PCR) Not Detected (Not Detectd) Influenza Type B (PCR) Detected A (Not Detectd) RSV (PCR) Not Detected (Not Detectd) SARS-CoV-2 (PCR) Not Detected (Not Detectd) Disposition Clinical Impression: Influenza B, Hypokalemia, Third trimester Disposition: HOME SELF-CARE Condition: Stable Prescriptions: Oseltamivir [Tamiflu] 75 mg PO Q12HR 5 Days #10 cap Is patient prescribed a controlled substance at d/c from ED?: No Referrals: Dionne Mixon, PAC [REFERRING] - 1-2 days
[2023-09-09 22:21] LABS: ALT 23 U/L (4-34); AST 44 U/L (14-36); African American GFR (CKD) >90 (>60 ml/min/1.73 sqM); Albumin 3.2 g/dL (3.5-5.0); Alkaline Phosphatase 120 U/L (38-126); Anion Gap 11 mmol/L; Blood Urea Nitrogen <2 mg/dL (7-17); Calcium 8.9 mg/dL (8.4-10.2); Carbon Dioxide 16 mmol/L (22-30); Chloride 105 mmol/L (98-107); Glucose 166 mg/dL (74-99); Non-African American GFR(CKD) >90 (>60 ml/min/1.73 sqM); Potassium 2.9 mmol/L (3.5-5.1); Sodium 132 mmol/L (137-145); Total Bilirubin 0.8 mg/dL (0.2-1.3); Total Protein 6.1 g/dL (6.3-8.2)
[2023-09-10] MEDS: POTASSIUM CHLORIDE ER 20 MEQ TAB.ER PO STA (00:37)
[2023-09-10] MEDS: SODIUM CHLORIDE 0.9% 1,000 ML IV SCH (00:38)
[2023-09-10] MEDS: POTASSIUM CHLORIDE 20 MEQ in WATER FOR INJECTION 1 100ML.BAG IVPB STA (00:38)
[2023-09-10] MEDS: OSELTAMIVIR 75 MG CAP PO STA (01:32)
--- NOTE | 2023-09-10 01:48 | XR ---
EXAM: XR Chest, 1 View CLINICAL HISTORY: ITS.REASON XR Reason: chest pain, influenza TECHNIQUE: Frontal view of the chest. COMPARISON: 12/28/2022 FINDINGS: Lungs: Unremarkable. No consolidation. Pleural space: Unremarkable. No pneumothorax. Heart: Unremarkable. No cardiomegaly. Mediastinum: Unremarkable. Normal mediastinal contour. Bones/joints: Unremarkable. No acute fracture. IMPRESSION: Normal chest x-ray.
[2023-09-10 01:54] VITALS: BP 108/75; PULSE 106; RESP 18; TEMP 98.1
== END 2023-09-10 02:00 | disposition home or self-care (01) ==
LOC: EC 21:00
DX: O98.513 Other viral diseases complicating pregnancy, third trimester (principal); J10.1 Influenza due to other identified influenza virus with other respiratory manifestations; O99.283 Endocrine, nutritional and metabolic diseases complicating pregnancy, third trimester; E87.6 Hypokalemia; O26.893 Other specified pregnancy related conditions, third trimester; R00.0 Tachycardia, unspecified; O99.213 Obesity complicating pregnancy, third trimester; E66.9 Obesity, unspecified; O99.333 Smoking (tobacco) complicating pregnancy, third trimester; F17.290 Nicotine dependence, other tobacco product, uncomplicated; Z3A.32 32 weeks gestation of pregnancy; Z91.030 Bee allergy status
CPT/HCPCS: 36415 ×2; 93005; 80053; 83605 ×2; 85025; 87636; 71045; 99285; 96365; 96361 ×3; J3480

== ENCOUNTER 2023-09-28 18:25 | Outpatient (CLI) | payer OTHER ==
[2023-09-28 18:34] LABS: Glucose,Whole Blood 99 mg/dL (70-110)
[2023-09-28] MEDS ORDERED: ACETAMINOPHEN IV (For NPO) 1,000 MG in EMPTY BAG 1 BAG IVPB ONE (19:35)
[2023-09-28 19:41] LABS: Amorphous Sediment,Urine Rare /hpf; Appearance,Urine Turbid (Clear); Bilirubin,Urine Negative (Negative); Blood,Urine Negative (Negative); Calcium Oxalate Crystals,Urine Occasional /hpf; Color,Urine Yellow; Glucose,Urine (UA) Negative (Negative); Ketones,Urine Trace (Negative); Leukocyte Esterase,Urine Large (Negative); Mucus,Urine Rare /hpf; Nitrite,Urine Negative (Negative); Protein,Urine 1+ (Negative); RBC,Urine 2 /hpf (0-5); Specific Gravity,Urine 1.026 (1.001-1.035); Squamous Epithelial Cell,Urine 19 /hpf (0-4); Urobilinogen,Urine <2.0 mg/dL (<2.0); WBC,Urine 6 /hpf (0-5)
[2023-09-28] MEDS: LACTATED RINGERS 1,000 ML IV ONE (20:28)
[2023-09-28] MEDS: ACETAMINOPHEN TAB 325 MG TAB PO STA (20:39)
[2023-09-28 20:44] LABS: Basophils % (A) 0 %; Eosinophils # (A) 0.1 k/uL (0-0.7); Eosinophils % (A) 1 %; HCT 34.3 % (34.0-46.0); HGB 11.3 gm/dL (11.4-16.0); Lymphocytes # (A) 2.2 k/uL (1.0-4.8); Lymphocytes % (A) 19 %; MCH 27.7 pg (25.0-35.0); MCHC 32.9 g/dL (31.0-37.0); Mean Platelet Volume 9.3; Monocytes # (A) 0.7 k/uL (0-1.0); Monocytes % (A) 6 %; Neutrophils # (A) 8.3 k/uL (1.3-7.7); Neutrophils % (A) 72 %; Platelet Count 325 k/uL (150-450); RBC 4.08 m/uL (3.80-5.40); RDW 15.5 % (11.5-15.5); WBC 11.5 k/uL (3.8-10.6)
[2023-09-28] MEDS: NIFEdipine 10 MG CAP PO ONE (21:36)
[2023-09-28] MEDS ORDERED: NIFEdipine 10 MG CAP PO SCH (22:00)
[2023-09-28] MEDS: BETAMET ACET-BETAMETH SOD PHOS 6 MG/ML MDV IM SCH (22:51)
[2023-09-28] MEDS: TERBUTALINE 1 MG/ML VIAL SQ STA (22:51)
[2023-09-29 03:17] VITALS: BP 134/78; PULSE 74; RESP 16; TEMP 98.4
--- NOTE | 2023-11-04 12:11 | P.MSEPDOC ---
Presenting Problems - Arrival Data Date of Arrival on Unit: 09/28/23 Time of Arrival on Unit: 18:25 Mode of Transport: Wheelchair - Complaint OB-Reason for Admission/Chief Complaint: Other Comment: pt c/o tenderness in lower abd area and back discomfort more on the right side. flank pain noted on right side Medical History - Information : 3 Para: 2 Term: 2 : 0 Abortions: Spontaneous or Elective: 0 Number of Living Children: 2 - Gestational Age Gestational Age by LISET (wks/days): 35 Weeks and 0 Days - History Complications: GDM Review of Systems - Review of Systems Constitutional: No problems Breast: No problems ENT: No problems Cardiovascular: No problems Respiratory: No problems Gastrointestinal: No problems Genitourinary: No problems Musculoskeletal: No problems Neurological: No problems Skin: No problems Vital Signs - Temperature Temperature: 98.4 F Temperature Source: Temporal Artery Scan - Pulse Pulse Oximetery Pulse Rate: 74 Pulse Assessment Method: Pulse Oximetry - Respirations Respiratory Rate: 16 - Blood Pressure Right Arm Blood Pressure: 134/78 Blood Pressure Mean: 96 Blood Pressure Source: Automatic Cuff Medical Screen Scoring - Cervical Exam Membranes: Intact - Uterine Contractions Frequency From (mins): 4 Frequency To (mins): 6 Duration From (seconds): 50 Duration To (seconds): 80 Intensity: Mild Resting: Soft to palpation - Assessment - Baby A Baseline FHR: 145 Heart Rate - NICHD Category: Category I (Normal) NST: Reactive Physician Notification - Physician Notified Physician Notified Date: 09/28/23 Physician Notified Time: 19:13 Physician: Mary Duarte New Order Received: Yes - Notification Comment Comment: Jocelyne Wood RN calls Dr. Duarte. Oders recieved for CBC, IV hydration, Cerivcal exam, Pt may have tylenol if she wants. U/A results pending. Maternal Triage Index - Maternal Triage Index Presenting for scheduled procedure w/no complaint: No - Stat/Priority 1 Stat Priority 1: No - Urgent/Priority 2 Urgent Priority 2: Yes Provider Notified: Mary Duarte Provider Notified Time: 19:13 Criteria Met for Priority 2: pt c/o tenderness in lower abd area and back discomfort more on the right side. flank pain noted on right side. Pain 10/ Disposition - Disposition OB Disposition: Discharge to home Discharge Date: 09/29/23 Discharge Time: 00:15 I agree with the RN Medical Screening Exam: Yes Physician's MSE Comment: I have neither seen nor examined the patient Case reviewed; plan agreed upon as documented in EMR&OBIX.: Yes Diagnosis: MATERNAL CARE FOR PROBLEM, UNSP, THIRD * DO NOT USE *
== END 2023-09-29 00:15 | disposition home or self-care (01) ==
LOC: FBPOP 18:25
PROVIDERS: ATTEND Obstetrics & Gynecology
DX: O99.891 Other specified diseases and conditions complicating pregnancy (principal); Z3A.35 35 weeks gestation of pregnancy; Z91.030 Bee allergy status; Z87.891 Personal history of nicotine dependence
CPT/HCPCS: 59025; 96360; 96361; 96372; 36415; 85025; 81001; 87086; G0463; J3105; J0702; 99214

== ENCOUNTER 2023-09-30 00:36 | Outpatient (CLI) | payer OTHER ==
[2023-09-30] MEDS: BETAMET ACET-BETAMETH SOD PHOS 6 MG/ML MDV IM SCH (00:51)
== END 2023-09-30 01:12 ==
LOC: FBPOP 00:36
PROVIDERS: ATTEND Obstetrics & Gynecology Obstetrics
DX: O60.00 Preterm labor without delivery, unspecified trimester (principal); Z29.89 Encounter for other specified prophylactic measures; Z3A.00 Weeks of gestation of pregnancy not specified; Z91.030 Bee allergy status; Z87.891 Personal history of nicotine dependence
CPT/HCPCS: 96372; J0702

== ENCOUNTER 2023-09-30 15:20 | Outpatient (CLI) | payer OTHER ==
--- NOTE | 2023-09-30 16:40 | US ---
EXAMINATION TYPE: US venous doppler duplex LE BI DATE OF EXAM: 09/30/2023 4:27 PM COMPARISON: NONE CLINICAL INDICATION: Female, 22 years old with history of bilateral lower extremity swelling; 35 week s . SIDE PERFORMED: Bilateral TECHNIQUE: The lower extremity deep venous system is examined utilizing real time linear array sonog nicolas with graded compression, doppler sonography and color-flow sonography. VESSELS IMAGED: Common Femoral Vein Deep Femoral Vein Greater Saphenous Vein * Femoral Vein Popliteal Vein Small Saphenous Vein * Proximal Calf Veins (* superficial vessels) Right Leg: Negative for DVT Left Leg: Negative for DVT IMPRESSION: Grayscale, color doppler, spectral doppler imaging performed of the deep veins of the lo wer extremities. There is normal flow, compressibility, vascular waveforms.
[2023-09-30] MEDS: FUROSEMIDE 10 MG/ML 4 ML VIAL IV STA (16:53)
[2023-09-30 17:55] VITALS: BP 119/61; PULSE 94; RESP 16; TEMP 97.7
== END 2023-09-30 17:10 | disposition home or self-care (01) ==
LOC: FBPOP 15:20
PROVIDERS: ATTEND Obstetrics & Gynecology
DX: O12.03 Gestational edema, third trimester (principal); Z3A.35 35 weeks gestation of pregnancy; Z91.030 Bee allergy status; Z87.891 Personal history of nicotine dependence
CPT/HCPCS: 59025; 96374; 93970; J1940

== ENCOUNTER 2023-10-02 15:55 | Observation (INO) | payer OTHER ==
[2023-10-02] MEDS: LACTATED RINGERS 1,000 ML IV ONE (18:04)
[2023-10-02 18:24] LABS: Appearance,Urine Cloudy (Clear); Bacteria,Urine Rare /hpf; Bilirubin,Urine Negative (Negative); Blood,Urine Moderate (Negative); Calcium Oxalate Crystals,Urine Occasional /hpf; Color,Urine Yellow; Glucose,Urine (UA) Negative (Negative); Ketones,Urine 1+ (Negative); Leukocyte Esterase,Urine Large (Negative); Mucus,Urine Rare /hpf; Nitrite,Urine Negative (Negative); Protein,Urine 1+ (Negative); RBC,Urine 2 /hpf (0-5); Specific Gravity,Urine 1.024 (1.001-1.035); Squamous Epithelial Cell,Urine 34 /hpf (0-4); WBC,Urine 10 /hpf (0-5)
[2023-10-02] MEDS: NALBUPHINE 10 MG/ML (10 ML MDV) IV PRN (18:55)
--- NOTE | 2023-10-02 20:13 | P.HPOB ---
History of Present Illness H&P Date: 10/02/23 Chief Complaint: 35+ weeks, abdominal pain The patient is a 22-year-old 3 para 1-1-0-2 admitted at 35+ weeks as established by last menstrual period and confirmed by second trimester ultrasound. She is admitted to triage for the fourth time in the last 5 days for varying different complaints. Today she presents with significant generalized abdominal pain not localizing to the uterus nor to the upper or lower quadrants, generalized. There is a category 1 heart rate tracing. She is tracing a few contractions. She reportedly was here a number of days ago for possible labor at which time, by history, she was treated with Procardia followed by terbutaline and was given prophylactic steroids and discharged. She then was seen more recently after having been sent from the office for significant bilateral lower extremity edema for rule out DVT which was negative. Today, she denies any specific symptoms aside from generalized abdominal pain and cramping beginning early this morning and continuing throughout the day. She denies nausea and vomiting and reports normal bowel function. She has not had a fever. She does carry a history of a previous section for her done for possible placental abruption. She is also a gestational diabetic and has recently been asked to begin insulin which has not yet started. She also carries a diagnosis of POTS syndrome for which she sees cardiology. Obstetrical history: 3 para 1-1-0-2 with 1 term vaginal delivery followed by a 33+ week delivery for placental abruption. Current statistics are as listed above. EDC of 11/03/2023 was established by last menstrual period and confirmed by second trimester ultrasound. Laboratory workup demonstrates a blood type of B+ with a negative antibody screen. Rubella status is immune. The remainder of the laboratory workup was within normal limits although she had an elevated second trimester Glucola and was deemed a gestational diabetic as she did not want to complete the 3-hour glucose tolerance test. Gynecologic history: Apparently unremarkable with no history of any infections to include STDs. Review of Systems Review of systems is confined to history of present illness. Past Medical History Past Medical History: Asthma Additional Past Medical History / Comment(s): Eczema, hypoglycemia, POTS History of Any Multi-Drug Resistant Organisms: None Reported Past Surgical History: Adenoidectomy, Section, Tonsillectomy Past Anesthesia/Blood Transfusion Reactions: No Reported Reaction Smoking Status: Vaper - Past Family History Father Family Medical History: Diabetes Mellitus, Hypertension Medications and Allergies Home Medications Medication Instructions Recorded Confirmed Type Acetaminophen [Tylenol Extra 1 tab PO Q8H PRN 06/29/23 10/02/23 History Strength] Vit No.179/Iron/Folic 1 tab PO DAILY 08/27/23 10/02/23 History [ Tablet] Omeprazole 20 mg PO DAILY 09/28/23 10/02/23 History Allergies Allergy/AdvReac Type Severity Reaction Status Date / Time bee venom protein (honey bee) Allergy Swelling Verified 10/02/23 17:42 @site of sting Exam Intake and Output 10/02/23 10/02/23 10/02/23 06:59 14:59 22:59 Other: Weight 105.233 kg In general, this is a well-developed, moderately obese female who appears to be in some discomfort. Her heart has a regular rhythm and rate without murmur. Her lungs are clear to auscultation bilaterally in all guajardo. Her abdomen is nondistended, soft, with no specific point tenderness or masses aside from uterine fundus. The uterus is generally soft and nontender. movement is appreciated. Her extremities are without any cyanosis, clubbing, or edema and are nontender to palpation bilaterally. Digital cervical examination performed by the nursing staff demonstrated cervix to be perhaps 1 cm dilated, thick, high, and very posterior. The vertex is in presentation. Results Abnormal Lab Results - Last 24 Hours (Table) 10/02/23 Range/Units 17:54 Urine Appearance Cloudy H (Clear) Urine Protein 1+ H (Negative) Urine Ketones 1+ H (Negative) Urine Blood Moderate H (Negative) Ur Leukocyte Esterase Large H (Negative) Urine WBC 10 H (0-5) /hpf Ur Squamous Epith Cells 34 H (0-4) /hpf Calcium Oxalate Crystal Occasional H (None) /hpf Urine Bacteria Rare H (None) /hpf Urine Mucus Rare H (None) /hpf Assessment and Plan (1) 35 to 36 weeks gestation of Current Visit: Yes Status: Acute Code(s): LSA3749 - SNOMED Code(s): 779123850 (2) Generalized abdominal pain Current Visit: Yes Status: Acute Code(s): R10.84 - GENERALIZED ABDOMINAL PAIN SNOMED Code(s): 646888683 Plan: Observation over the last several hours has failed to demonstrate any obvious etiology for the pain. She is having occasional contractions but nothing to explain the degree of discomfort the patient is reporting. The pain is also generalized and not specific to the uterus. She denies any obvious GI symptoms and urinalysis is negative aside from dehydration which has been addressed with IV hydration. Given the uncertain nature of the pain and her history of previous placental abruption, the patient is admitted for 23-hour observation. She will have continuous surveillance and toco monitoring. I have ordered IV Tylenol for discomfort and will allow her a regular diet as she reports that she is quite hungry and has no evidence of ongoing abruption or need for acute delivery. IV hydration will be continued and we will reevaluate in the morning or as needed.
[2023-10-02] MEDS: ACETAMINOPHEN IV (For NPO) 1,000 MG in EMPTY BAG 1 BAG IVPB PRN (20:59)
[2023-10-02] MEDS: FAMOTIDINE 20 MG/2 ML VIAL IV SCH (21:00)
[2023-10-02] MEDS: LACTATED RINGERS 1,000 ML IV SCH (21:01)
[2023-10-02 21:09] LABS: Glucose,Whole Blood 109 mg/dL (70-110)
[2023-10-03 05:16] VITALS: PULSE 71
[2023-10-03 08:46] VITALS: BP 149/76; RESP 20; TEMP 96.5
--- NOTE | 2023-10-03 11:40 | P.DS ---
Providers Date of admission: 10/02/23 19:52 Expected date of discharge: 10/03/23 Attending physician: Mary Duarte MD Primary care physician: Mary Duarte MD - Discharge Diagnosis(es) (1) 35 to 36 weeks gestation of Current Visit: Yes Status: Acute (2) Generalized abdominal pain Current Visit: Yes Status: Acute Hospital Course: The patient is a 22-year-old 3 para 1-1-0-2 admitted at 35+ weeks by good dating parameters. She is admitted to triage on this episode with relatively acute onset of abdominal pain on the morning of presentation. On labor and delivery, she is found with a category 1 heart rate tracing and random contractions. Her pain is generalized over the entire abdomen with specific attention to the epigastric area. Given her occasional contractions and a history of previous placental abruption and section, she was admitted for observation. She was continuously monitored overnight and continued to have random occasional contractions with no evidence of labor nor of abruption and heart tones remained category 1. Nevertheless, she continued to have complaints of discomfort. She does give a history of having moderate to significant reflux this for which she has been on Prilosec 20 mg daily with breakthrough symptoms. This morning at examination, her pain seems to be more likely consistent with either a musculoskeletal origin or perhaps reflux/GI etiologies or combination of both. In either case, wellbeing has been documented. She was deemed stable for discharge and was discharged home to follow-up in the office as scheduled for this week on probably Thursday and Thursday. Discharge medications included continued vitamins. I have instructed her to increase her Prilosec 20 mg daily to either 20 mg twice daily or 40 mg once daily. I also instructed her to use a heating pad as necessary as a musculoskeletal injury would likely respond to this. She understood all of her instructions and agrees to follow-up as noted above. Procedures: #1. 23-hour observation #2. IV hydration #3. Continuous monitoring Patient Condition at Discharge: Stable Plan - Discharge Summary New Discharge Prescriptions: No Action Vit No.179/Iron/Folic [ Tablet] 1 tab PO DAILY Omeprazole 20 mg PO DAILY Acetaminophen [Tylenol Extra Strength] 1 tab PO Q8H PRN PRN Reason: Pain Or Fever > 100.5 Discharge Medication List Acetaminophen [Tylenol Extra Strength] 1 tab PO Q8H PRN 01/08/24 [History] Vit No.179/Iron/Folic [ Tablet] 1 tab PO DAILY 08/27/23 [History] Omeprazole 20 mg PO DAILY 09/28/23 [History] Follow up Appointment(s)/Referral(s): Mary Duarte MD [Primary Care Provider] - 1-2 Days Discharge Disposition: HOME SELF-CARE
== END 2023-10-03 11:48 | disposition home or self-care (01) ==
LOC: FBPOP 15:55 → 4FBP 19:52
PROVIDERS: ADMIT Obstetrics & Gynecology; ATTEND Obstetrics & Gynecology
DX: O26.893 Other specified pregnancy related conditions, third trimester (principal); R10.84 Generalized abdominal pain; O24.419 Gestational diabetes mellitus in pregnancy, unspecified control; O99.413 Diseases of the circulatory system complicating pregnancy, third trimester; G90.A Postural orthostatic tachycardia syndrome [POTS]; O99.283 Endocrine, nutritional and metabolic diseases complicating pregnancy, third trimester; E86.0 Dehydration; O99.613 Diseases of the digestive system complicating pregnancy, third trimester; K21.9 Gastro-esophageal reflux disease without esophagitis; O99.333 Smoking (tobacco) complicating pregnancy, third trimester; F17.290 Nicotine dependence, other tobacco product, uncomplicated; Z3A.35 35 weeks gestation of pregnancy; O34.219 Maternal care for unspecified type scar from previous cesarean delivery; Z87.59 Personal history of other complications of pregnancy, childbirth and the puerperium; Z91.030 Bee allergy status
CPT/HCPCS: 59025; 96374; 96375; 81001; G0463; G0378; J2300; J3490; J0131; 36415; 96361; 96367; 99213; 99214

== ENCOUNTER 2023-10-05 01:43 | Inpatient (IN) | payer OTHER ==
[2023-10-05] MEDS ORDERED: CARBOPROST TROMETHAMINE 250 MCG/ML 1 ML AMP IM PRN (01:58)
[2023-10-05] MEDS ORDERED: OXYTOCIN 10 UNIT/ML 1 ML VIAL IM PRN (01:58)
[2023-10-05] MEDS ORDERED: miSOPROStoL 200 MCG TAB PO PRN (01:58)
[2023-10-05] MEDS ORDERED: TRANEXAMIC 1,000 MG/100ML-NACL 1,000 MG in EMPTY BAG 1 BAG IV PRN (01:58)
[2023-10-05] MEDS ORDERED: METHYLERGONOVINE 0.2 MG/ML 1 ML AMP IM PRN (01:58)
[2023-10-05] MEDS: CITRIC ACID-SODIUM CITRATE 15 ML CUP PO ONE (02:02)
[2023-10-05] MEDS ORDERED: KETOROLAC 15 MG/ML 1 ML VIAL ONE (02:15)
[2023-10-05] MEDS ORDERED: OXYTOCIN 30 UNITS/500 ML NS BAG IV ONE (02:15)
[2023-10-05] MEDS ORDERED: SUCCINYLCHOLINE CHLORIDE 200 MG/10 ML VIAL IV ONE (02:15)
[2023-10-05] MEDS ORDERED: ONDANSETRON 4 MG/2 ML VIAL ONE (02:15)
[2023-10-05] MEDS ORDERED: PROPOFOL 10 MG/ML 20 ML VIAL IV ONE (02:15)
[2023-10-05] MEDS ORDERED: fentaNYL (PF) 50 MCG/ML 2 ML AMP ONE (02:15)
[2023-10-05] MEDS ORDERED: NALOXONE 0.4 MG/ML 1 ML VIAL IV PRN (03:24)
[2023-10-05] MEDS ORDERED: METOCLOPRAMIDE 5 MG/ML 2 ML VIAL IVP PRN (03:24)
[2023-10-05] MEDS ORDERED: ZOLPIDEM 5 MG TAB PO PRN (03:24)
[2023-10-05] MEDS ORDERED: diphenhydrAMINE 50 MG CAP PO PRN (03:24)
[2023-10-05] MEDS ORDERED: diphenhydrAMINE 25 MG CAP PO PRN (03:24)
[2023-10-05] MEDS ORDERED: diphenhydrAMINE 50 MG/ML 1 ML VIAL IVP PRN ×2 (03:24)
[2023-10-05] MEDS ORDERED: KETOROLAC 15 MG/ML 1 ML VIAL IVP PRN (03:24)
[2023-10-05] MEDS ORDERED: SIMETHICONE 80 MG CHEWABLE PO PRN (03:24)
[2023-10-05] MEDS ORDERED: ONDANSETRON 4 MG/2 ML VIAL IVP PRN (03:24)
[2023-10-05] MEDS ORDERED: LANOLIN CREAM 1 GM TUBE TOPICAL PRN (03:24)
[2023-10-05] MEDS: LACTATED RINGERS 1,000 ML IV SCH (03:30)
--- NOTE | 2023-10-05 03:32 | P.HPOB ---
History of Present Illness H&P Date: 10/05/23 Chief Complaint: 35-6/7 weeks, acute vaginal bleeding, placental abruption The patient is a 22-year-old 3 para 1-1-0-2 admitted at 35-6/7 weeks by last menstrual period and confirmed by second trimester ultrasound. She is admitted with acute vaginal bleeding beginning earlier this night and significant contractions. She was admitted to the hospital approximately 2 days ago for abdominal pain of unknown origin which was ultimately thought to be musculoskeletal in nature as it was not specific to the uterus and, though there were some contractions, they were inconsistent and not consistent with labor or abruption. She does carry history of a previous abruption at 33 weeks for which she had a section. She additionally has been found to be diabetic and was deemed to be insulin-dependent recently but has not yet started insulin. She has been in triage on approximately 3-4 occasions over the last week and did receive steroids secondary to a potential concern for labor early in the week. On labor delivery, heart tones were category 2 with no obvious accelerations and 1 subtle deceleration but otherwise had adequate variability. Given the relatively brisk vaginal bleeding and her history of previous abruption and section, the decision was made to proceed to the operating room for delivery. Obstetrical history: 3 para 1-1-0-2 with 1 term vaginal delivery and a 33+ week delivery for placental abruption. Current statistics are listed in history of present illness. EDC of 11/03/2023 was established by last menstrual period and confirmed by second trimester ultrasound. Laboratory workup demonstrates a blood type of B+ with a negative antibody screen. Rubella status is immune. The remainder of the laboratory workup was within normal limits although her second trimester Glucola was elev ated and she was ultimately deemed gestational diabetic as she did not wish to complete the 3-hour glucose tolerance test. Gynecologic history: Unremarkable with no apparent history of STDs. Review of Systems Review of systems is confined to history of present illness. Past Medical History Past Medical History: Asthma Additional Past Medical History / Comment(s): Eczema, hypoglycemia, POTS, gestational diabetes History of Any Multi-Drug Resistant Organisms: None Reported Past Surgical History: Adenoidectomy, Section, Tonsillectomy Past Anesthesia/Blood Transfusion Reactions: No Reported Reaction Past Psychological History: No Psychological Hx Reported Smoking Status: Vaper Past Alcohol Use History: None Reported Past Drug Use History: None Reported - Past Family History Father Family Medical History: Diabetes Mellitus, Hypertension Medications and Allergies Home Medications Medication Instructions Recorded Confirmed Type Acetaminophen [Tylenol Extra 1 tab PO Q8H PRN 06/29/23 10/02/23 History Strength] Vit No.179/Iron/Folic 1 tab PO DAILY 08/27/23 10/05/23 History [ Tablet] Omeprazole 20 mg PO DAILY 09/28/23 10/05/23 History Allergies Allergy/AdvReac Type Severity Reaction Status Date / Time bee venom protein (honey bee) Allergy Swelling Verified 10/02/23 17:42 @site of sting Exam Intake and Output 10/04/23 10/04/23 10/05/23 14:59 22:59 06:59 Other: Weight 97.976 kg In general, this is a well-developed, moderately obese woman in some discomfort with acute vaginal bleeding. Her heart has a regular rhythm and rate without murmur. Her lungs are clear to auscultation bilaterally in all guajardo. Her abdomen is obese, nondistended, gravid, has normal active bowel sounds, soft, somewhat tender as a general rule and with the only mass being the palpable uterine fundus. Her extremities are without any cyanosis, clubbing, or edema and are nontender to palpation. Digital cervical examination is deferred. Assessment and Plan (1) Vaginal bleeding Current Visit: Yes Status: Acute Code(s): N93.9 - ABNORMAL UTERINE AND VAGINAL BLEEDING, UNSPECIFIED SNOMED Code(s): 558407545 (2) Placental abruption Current Visit: Yes Status: Acute Code(s): O45.90 - PREMATURE SEPARATION OF PLACENTA, UNSP, UNSP TRIMESTER SNOMED Code(s): 857396273 (3) Previous section Current Visit: Yes Status: Acute Code(s): Z98.891 - HISTORY OF UTERINE SCAR FROM PREVIOUS SURGERY SNOMED Code(s): 202377350 (4) 35 to 36 weeks gestation of Current Visit: No Status: Acute Code(s): XLF6937 - SNOMED Code(s): 198464711 Plan: The patient was taken directly from triage to the operating room for repeat low- transverse section. The risks and complications have been discussed and she has understood and agreed to proceed.
--- NOTE | 2023-10-05 03:39 | P.OP ---
Date of Procedure: 10/05/23 Preoperative Diagnosis: #1. 35 and 6/7 weeks, acute vaginal bleeding, placental abruption #2. Previous section #3. Gestational diabetes Postoperative Diagnosis: Same Procedure(s) Performed: #1. Repeat low-transverse section Anesthesia: STANTON Surgeon: Ravi Ragsdale Narrow Gauge Brakeman #1: Julienne Hua Estimated Blood Loss (ml): 629 IV fluids (ml): 600 Urine output (ml): 200 Pathology: other (Placenta) Condition: stable Disposition: floor Operative Findings: Intraoperatively, there was clot noted immediately upon opening the uterus. There was a moderate amount of scarring at the level of the rectus and fascia. She was delivered of a viable 7 pound 5 ounce baby boy with Apgars of 7 at 1 minute and 9 at 5 minutes. The placenta was delivered manually, intact, and grossly normal though there was a moderate to significant amount of clot that came out with the placenta and was weighed with the sponges to be counted as intraoperative blood loss. The uterus, tubes, and ovaries were otherwise normal to inspection. Description of Procedure: Several attempts at placing a spinal anesthetic were made by the anesthesiologist and ultimately could not be carried out secondary to a lack of identifying landmarks. Given the acuity of the situation, the decision was made to proceed with general endotracheal anesthesia. After prepping and draping and making ready for surgery, general endotracheal anesthesia was administered by the anesthesiologist. A Pfannenstiel incision was made through pre-existing scar and extended into the abdominal cavity with only mild difficulty discovered primarily at the level of the fascia and rectus muscles which were reasonably scarred. The bladder was well out of the way and 2 cm incision was made in the transverse plane of the lower uterine segment to enter the uterus at which time clot was noted with clear fluid. The head was delivered up and through the incision where the nose and mouth were suctioned. The remainder of the infant was delivered onto the field where the cord was doubly clamped, cut, and the infant passed for resuscitative measures with weight and Apgars as noted above. cord blood was collected as maternal blood type was unknown at that time. Segment of cord was doubly clamped, cut, and set aside should cord gases become necessary. The placenta was delivered manually and intact as noted above with a significant medical out produced with delivery of the placenta. There was a grossly normal three-vessel cord. The uterus was exteriorized and the anterior cavity of the uterus swept of any remaining placental or membranous fragments. The margins of the uterine incision were grasped with Baca clamps and the incision closed in 2 layers. The first layer was a running locking stitch of 0 chromic catgut from margin to margin followed by a running imbricating stitch of 0 chromic catgut from margin to margin. Hemostasis appeared to be excellent. The posterior cul-de-sac was suctioned with a guard and the uterine and ovarian findings were normal as noted above. The uterus was replaced within the abdominal cavity and the gutters swept of any remaining blood, fluid, or clot. Reexamination of the incision demonstrated excellent hemostasis. The parietal peritoneum was loosely reapproximated and the layer of muscles examined and made hemostatic with the Bovie. The fascia was closed with 2 running stitches of 0 Vicryl proceeding from the lateral margins to the midpoint. The subcutaneous tissues were irrigated, made hemostatic with the Bovie, and reapproximated with a running stitch of 3-0 plain catgut. The skin was reapproximated with a running subcuticular stitch of 4-0 Vicryl followed by half-inch Steri-Strips placed with Mastisol. Quantitative blood loss for the case was 629 mL. There were no complications aside from the acute nature of the procedure and the placental abruption itself. All sponge, instrument, and needle counts were correct. The patient tolerated the procedure well and proceeded to the recovery room in stable condition. Both mother and are resting comfortably in recovery though the is in the special care nursery secondary to protocol as he is less than 36 weeks of gestation.
[2023-10-05] MEDS: HYDROmorphone PCA 10 MG/50 ML BAG IV PRN (04:16)
[2023-10-05] MEDS: OXYTOCIN 30 UNITS/500 ML NS 30 UNIT in SALINE 1 500ML.BAG IV SCH (04:37)
[2023-10-05] MEDS: ACETAMINOPHEN TAB 500 MG TAB PO SCH (06:53)
[2023-10-05 07:41] LABS: HCT 31.7 % (34.0-46.0); HGB 10.2 gm/dL (11.4-16.0); MCH 27.6 pg (25.0-35.0); MCHC 32.2 g/dL (31.0-37.0); MCV 85.7 fL (80.0-100.0); Mean Platelet Volume 10.1; Platelet Count 276 k/uL (150-450); RDW 15.7 % (11.5-15.5); WBC 20.9 k/uL (3.8-10.6)
[2023-10-05 08:28] LABS: Band Neutrophils % 1 %; Lymphocytes # (M) 2.09 k/uL (1.0-4.8); Monocytes # (M) 0.42 k/uL (0-1.0); Myelocytes # (M) 0.21 k/uL (0); Myelocytes % 1 %; Neutrophils % (M) 87 %; Nucleated Red Blood Cells 0 /100 WBC (0-0); Total Cells Counted 200
[2023-10-05 08:31] LABS: RBC Morphology Normal
[2023-10-05] MEDS: IBUPROFEN 600 MG TAB PO SCH (13:23)
[2023-10-05] MEDS: SENNOSIDES-DOCUSATE SODIUM 1 EACH TAB PO SCH (23:38)
--- NOTE | 2023-10-06 08:32 | P.PNOBGPC ---
Subjective - Subjective Principal diagnosis: s/p repeat section 2/2 placental abruption Interval history: The patient is doing well this morning and had no acute events overnight. She does state that he pain is suboptimally controlled. She reports minimal lochia, passing flatus, voiding without difficulty, ambulating, and eating/drinking without nausea or vomiting. She is her infant without difficulty. She denies chest pain, shortness of breathing, fevers, or chills overnight. She denies pain in the legs, swelling in the legs is improving compared to . Patient reports: Reports appetite normal, Reports voiding normally, Reports pain poorly controlled, Reports ambulating normally : doing well, other (in the nursery 2/2 prematurity) Objective - Vital Signs Latest vital signs: Vital Signs Temp Pulse Resp BP Pulse Ox 10/06/23 04:00 99.0 F 85 19 114/70 98 10/05/23 20:55 90 16 10/05/23 20:00 98.5 F 95 15 117/75 97 10/05/23 16:18 97.9 F 90 16 120/75 99 10/05/23 11:56 98.0 F 93 18 121/77 97 10/05/23 08:35 98.2 F 82 18 110/65 98 Intake and Output 10/05/23 10/06/23 10/06/23 22:59 06:59 14:59 Intake Total 1440 Output Total 800 Balance 640 Intake: Oral 1440 Output: Urine 800 Other: Voiding Method Indwelling Catheter Indwelling Catheter # Voids 1 - Exam Extremities: Present: normal Abdomen: Present: normal appearance, soft Incision: Present: normal, dry, intact Uterus: Present: normal, firm - Labs Labs: Abnormal Lab Results - Last 24 Hours (Table) 10/05/23 Range/Units 07:04 Neutrophils # (Manual) 18.30 H (1.3-7.7) k/uL Myelocytes # (Manual) 0.21 H (0) k/uL Assessment and Plan Assessment: 22 year old POD#1 s/p repeat section at 35 weeks 2/2 placental abruption Plan: 1. Postoperative. Patient meeting all postoperative milestones appropriately. 2. Viable male . Doing well in the nursery. Plan is for circumcision once cleared by peds. Dispo: Anticipate discharge home on POD#2 or #3.
[2023-10-06 08:56] LABS: Basophils % (A) 0 %; Eosinophils # (A) 0.2 k/uL (0-0.7); Eosinophils % (A) 1 %; HCT 24.9 % (34.0-46.0); Lymphocytes # (A) 2.6 k/uL (1.0-4.8); Lymphocytes % (A) 19 %; MCH 27.4 pg (25.0-35.0); MCHC 32.7 g/dL (31.0-37.0); MCV 83.8 fL (80.0-100.0); Mean Platelet Volume 8.9; Monocytes # (A) 0.6 k/uL (0-1.0); Monocytes % (A) 5 %; Neutrophils # (A) 10.1 k/uL (1.3-7.7); Neutrophils % (A) 73 %; Platelet Count 287 k/uL (150-450); RBC 2.96 m/uL (3.80-5.40); RDW 15.7 % (11.5-15.5); WBC 13.8 k/uL (3.8-10.6)
[2023-10-06 08:57] LABS: HGB 8.1 gm/dL (11.4-16.0)
[2023-10-07 01:06] VITALS: RESP 16
--- NOTE | 2023-10-07 12:30 | P.PNOBGPC ---
Subjective - Subjective Principal diagnosis: s/p repeat , placental abruption Interval history: The patient is doing well this morning and had no acute events overnight. She is still having suboptimal pain control. She reports minimal lochia, passing flatus, voiding without difficulty, ambulating, and eating/drinking without nausea or vomiting. She is her without difficulty. She denies chest pain, shortness of breathing, fevers, or chills overnight. She denies pain or swelling in the legs. Patient reports: Reports appetite normal, Reports voiding normally, Reports pain well controlled, Reports ambulating normally [place]: doing well, nursing well Objective - Vital Signs Latest vital signs: Vital Signs Temp Pulse Resp BP Pulse Ox 10/07/23 12:06 97.8 F 96 16 145/93 100 10/07/23 08:14 98.3 F 82 16 141/92 99 10/06/23 23:00 98.1 F 86 16 116/74 98 10/06/23 15:13 98.1 F 105 H 18 136/89 - Exam Extremities: Present: normal Abdomen: Present: normal appearance, soft Incision: Present: normal, dry, intact Uterus: Present: normal, firm Assessment and Plan Assessment: 22 year old POD#2 s/p repeat section at 35 weeks 2/2 placental abruption Plan: 1. Postoperative. Patient meeting all postoperative milestones appropriately. 2. Viable male infant. Doing well in the nursery. Plan is for circumcision once cleared by peds. Dispo: Anticipate discharge home on POD#3.
[2023-10-07 12:43] VITALS: BP 145/93; PULSE 96; TEMP 97.8
--- NOTE | 2023-10-07 13:11 | P.DS ---
Providers Date of admission: 10/05/23 02:00 Expected date of discharge: 10/07/23 Attending physician: Mary Duarte MD Primary care physician: Stated None Hospital Course: This is a 22 year old now POD#2 s/p repeat at 35 weeks and 6 days secondary to placental abruption. The was otherwise uncomplicated. The stay in the nursery for approximately 36 hours for prematurity and is now at the bedside doing well with the patient. The was complicated by insulin-dependent gestational diabetes. She did not have a chance to begin the insulin prior to delivery due to insurance coverage issues. The patient is doing well this morning and had no acute events overnight. She has no complaints this morning. She reports minimal lochia, passing flatus, voiding without difficulty, ambulating, and eating/drinking without nausea or vomiting. Infant doing well at bedside, s/p circumcision. She denies chest pain, shortness of breathing, fevers, or chills overnight. She denies pain or swelling in the legs. Postoperative restrictions are reviewed with the patient including pelvic rest for 6 weeks, no lifting heavier than 15 pounds for 6 weeks. The patient is encouraged to call the office if she experiences any heavy bleeding, foul-smelling discharge, breast complaints, or any if she has any other concerns. She will follow up in the office n 2 weeks for postoperative exam. The patient with go home with a 3-day supply of oxycodone to be used for breakthrough pain if the scheduled Motrin and Tylenol are not adequately controlling the pain. All questions are answered. Assessment: 22 year old now POD#2 s/p repeat at 35 weeks and 6 days 2/2 placental abruption Patient Condition at Discharge: Good Plan - Discharge Summary New Discharge Prescriptions: New Ibuprofen [Motrin] 600 mg PO Q6HR PRN #30 tab PRN Reason: Mild Pain (Scale 1 To 3) Acetaminophen Tab [Tylenol] 650 mg PO Q6H PRN #30 tab PRN Reason: Mild Pain (Scale 1 To 3) oxyCODONE HCL [Roxicodone] 5 mg PO Q6HR PRN 3 Days #12 tab PRN Reason: Breakthrough Pain No Action Vit No.179/Iron/Folic [ Tablet] 1 tab PO DAILY Omeprazole 20 mg PO DAILY Acetaminophen [Tylenol Extra Strength] 1 tab PO Q8H PRN PRN Reason: Pain Or Fever > 100.5 Discharge Medication List Acetaminophen [Tylenol Extra Strength] 1 tab PO Q8H PRN 06/29/23 [History] Vit No.179/Iron/Folic [ Tablet] 1 tab PO DAILY 08/27/23 [History] Omeprazole 20 mg PO DAILY 09/28/23 [History] Acetaminophen Tab [Tylenol] 650 mg PO Q6H PRN #30 tab 10/07/23 [Rx] Ibuprofen [Motrin] 600 mg PO Q6HR PRN #30 tab 10/07/23 [Rx] oxyCODONE HCL [Roxicodone] 5 mg PO Q6HR PRN 3 Days #12 tab 10/07/23 [Rx] Follow up Appointment(s)/Referral(s): Mary Duarte MD [STAFF PHYSICIAN] - 2 Weeks Activity/Diet/Wound Care/Special Instructions: Instructions 1. Do not begin any exercise program for 3 weeks. 2. Do not resume sexual relations for 6 weeks or longer if uncomfortable. 3. You may take tub baths or showers at any time. 4. You may use tampons if desired after 6 weeks. 5. Keep any areas repaired with stitches clean and dry. 6. If you are not nursing, wear a good fitting, supportive bra during the day and limit fluid intake for at least 1 week to prevent breast engorgement. 7. Call the office, , within the next week to make appointment for your 6 week checkup if it has not already been made. 8. Report any of the following occurrences to the doctor promptly: a. Heavy, excessive bleeding b. Chills, fever c. Burning or frequency of urination d. Pain or redness and breasts if nursing e. Increasing pain or swelling of vulva (stitches). In addition to the above instructions, the following additional should be followed: 1. No heavy lifting or straining (exercising) until after 6 week checkup. 2. Keep abdominal incision clean and dry: You may wear a dressing if more comfortable. 3. Make office appointment for 2 weeks after delivery date. Discharge Disposition: HOME SELF-CARE
== END 2023-10-07 14:30 | disposition home or self-care (01) | DRG 540 ==
LOC: FBPOP 01:43 → 4FBP 02:00
PROVIDERS: ADMIT Obstetrics & Gynecology; ATTEND Obstetrics & Gynecology
PROC: 10D00Z1 Extraction of Products of Conception, Low, Open Approach (ICD-10-PCS; principal; 2023-10-05 02:35)
DX: O45.93 Premature separation of placenta, unspecified, third trimester (principal); O24.424 Gestational diabetes mellitus in childbirth, insulin controlled; O34.211 Maternal care for low transverse scar from previous cesarean delivery; Z37.0 Single live birth; Z3A.35 35 weeks gestation of pregnancy; Z87.59 Personal history of other complications of pregnancy, childbirth and the puerperium; Z91.030 Bee allergy status; Z79.899 Other long term (current) drug therapy
CPT/HCPCS: 85025; 86850; 86900; 86901; 88307; 99215

== ENCOUNTER 2024-04-28 16:08 | Inpatient (IN) | payer OTHER ==
--- NOTE | 2024-04-28 16:52 | XR ---
EXAMINATION TYPE: XR chest 2V DATE OF EXAM: 04/28/2024 4:44 PM COMPARISON: 09/10/2023 CLINICAL INDICATION: Female, 23 years old with history of cough/cp, TECHNIQUE: XR chest 2V view(s) obtained. FINDINGS: The heart size is normal. The pulmonary vasculature is normal. Diffuse infiltrate to the left mid and lower lung field. Correlate for pneumonia. Follow-up recommend ed. Some mild infiltrate may be in the right mid lung.. IMPRESSION: 1. Left mid and lower lung field infiltrate with a mild right mid lung infiltrate. Correlate for pneu monia. [facility], , 04/28/2024 4:49 PM
--- NOTE | 2024-04-28 17:23 | ED ---
URI HPI - General Chief Complaint: Upper Respiratory Infection Stated Complaint: fever, chest pain Time Seen by Provider: 04/28/24 16:36 Source: patient, RN notes reviewed Mode of arrival: ambulatory Limitations: no limitations - History of Present Illness Initial Comments: This is a 23-year-old female who presents to the emergency department for fevers, coughing, and shortness of breath. States that 6 days ago on 04/22 she started to develop fevers and coughing. Symptoms have persisted and she has not been able to get the fevers to break. The cough is now nonproductive, but states that it has settled in her chest and she now has fairly significant chest pain and difficulty breathing. Denies any sick contacts. She had a negative at home COVID test. Reports a history of asthma but is not on any medication for it. She has not yet taken anything for the fever today. MD Complaint: fever, cough, nasal congestion - Related Data Home Medications Medication Instructions Recorded Confirmed Ibuprofen [Motrin] 800 mg PO TID PRN 04/28/24 04/28/24 Allergies Allergy/AdvReac Type Severity Reaction Status Date / Time bee venom protein (honey bee) Allergy Swelling Verified 04/28/24 19:36 @site of sting Review of Systems ROS Statement: Those systems with pertinent positive or pertinent negative responses have been documented in the HPI. ROS Other: All systems not noted in ROS Statement are negative. Past Medical History Past Medical History: Asthma Additional Past Medical History / Comment(s): Eczema, hypoglycemia, POTS, gestational diabetes History of Any Multi-Drug Resistant Organisms: None Reported Past Surgical History: Adenoidectomy, Section, Tonsillectomy Past Anesthesia/Blood Transfusion Reactions: No Reported Reaction Past Psychological History: No Psychological Hx Reported Smoking Status: Vaper Past Alcohol Use History: None Reported Past Drug Use History: None Reported - Past Family History Father Family Medical History: Diabetes Mellitus, Hypertension General Exam Limitations: no limitations General appearance: alert, in no apparent distress Head exam: Present: atraumatic, normocephalic, normal inspection Respiratory exam: Present: rhonchi, decreased breath sounds, prolonged expiratory Cardiovascular Exam: Present: regular rate, normal rhythm, normal heart sounds. Absent: systolic murmur, diastolic murmur, rubs, gallop, clicks Neurological exam: Present: alert, oriented X3, CN II-XII intact Psychiatric exam: Present: normal affect, normal mood Skin exam: Present: warm, dry, intact, normal color. Absent: rash Course Vital Signs 04/28/24 04/28/24 04/28/24 16:31 17:05 18:03 Temperature 102.8 F H Pulse Rate 115 H 108 H Respiratory 20 18 20 Rate Blood Pressure 129/71 O2 Sat by Pulse 95 95 Oximetry 04/28/24 04/28/24 04/28/24 18:12 18:21 18:51 Temperature 100.6 F H Pulse Rate 75 76 Respiratory Rate Blood Pressure O2 Sat by Pulse Oximetry 04/28/24 19:55 Temperature 99.9 F H Pulse Rate 90 Respiratory 20 Rate Blood Pressure 102/66 O2 Sat by Pulse 96 Oximetry Medical Decision Making - Medical Decision Making This is a 23 year old female who presents to the emergency department for fevers, coughing, and MAGALIS. Was pt. sent in by a medical professional or institution? @ -No Did you speak to anyone other than the patient for history? @ -No Did you review nursing and triage notes? @ -Yes, and I agree, it is accurate with regards to the patient's symptoms. Were old charts reviewed? @ -No Differential Diagnosis? @ -Differential Cough: Influenza, Covid, RSV, croup, allergic rhinitis, GERD, pneumonia, bronchitis, COPD, viral pharyngitis, streptococcal pharyngitis, this is not meant to be an all-inclusive list. EKG interpreted by me (3pts min.)? @ -EKG interpreted by me demonstrating the following: Sinus rhythm. Ventricular rate 97 bpm, AL interval 156 ms, QRS duration 97 ms, QTc 393 ms. X-rays interpreted by me (1pt min.)? @ -Chest x-ray obtained. My interpretation identifies bilateral infiltrates. CT interpreted by me (1pt min.)? @ -Not obtained U/S interpreted by me (1pt. min.)? @ -Not obtained What testing was considered but not performed? (CT, X-rays, U/S, labs)? Why? @ -None What meds were considered but not given? Why? @ -None Did you discuss the management of the patient with other professionals? @ -Yes, Dr. Kemp, who accepts the patient for admission. Did you reconcile home meds? @ -Yes Was smoking cessation discussed for >3mins.? @ -No Was critical care preformed (if so, how long)? @ -No Were there social determinants of health that impacted care today? How? (Homelessness, low income, unemployed, alcoholism, drug addiction, transportation, low edu. Level, literacy, decrease access to med. care, longterm, rehab)? @ -No Was there de-escalation of care discussed even if they declined? (Discuss DNR or withdrawal of care, Hospice)? @ -No What co-morbidities impacted this encounter? (DM, HTN, Smoking, COPD, CAD, Cancer, CVA, Hep., AIDS, mental health diagnosis, sleep apnea, morbid obesity)? @ -Asthma Was patient admitted / discharged? @ -Admitted. Patient was febrile and tachycardic on arrival. Lab work demonstrates mild hypokalemia and was otherwise unremarkable. COVID, influenza, and RSV testing negative. Chest x-ray demonstrates left middle and lower lobe infiltrates and a right middle lobe infiltrate. Findings reviewed with the patient. She advised that she was not comfortable going home with her level of distress. Patient subsequently admitted to medicine for bilateral pneumonia and history of asthma. Blood and sputum cultures obtained. She started on the pneumonia protocol with ceftriaxone and azithromycin. Consult placed for pulmonology. Case discussed with ED attending Dr. Rosado. Undiagnosed new problem with uncertain prognosis? @ -None Drug Therapy requiring intensive monitoring for toxicity (Heparin, Nitro, I nsulin, Cardizem)? @ -None Were any procedures done? @ -None Diagnosis/symptom? @ -Bilateral pneumonia Acute, or Chronic, or Acute on Chronic? @ -Acute Uncomplicated (without systemic symptoms) or Complicated (systemic symptoms)? @ -Complicated Side effects of treatment? @ -None Exacerbation, Progression, or Severe Exacerbation] @ -Not applicable Poses a threat to life or bodily function? @ -Yes, can lead to further respiratory compromise or worsening infection - Lab Data Result diagrams: 04/28/24 17:57 04/28/24 17:57 Lab Results 04/28/24 04/28/24 04/28/24 Range/Units 16:36 17:57 17:57 WBC 9.1 (3.8-10.6) k/uL RBC 4.95 (3.80-5.40) m/uL Hgb 12.7 (11.4-16.0) gm/dL Hct 38.4 (34.0-46.0) % MCV 77.5 L (80.0-100.0) fL MCH 25.6 (25.0-35.0) pg MCHC 33.0 (31.0-37.0) g/dL RDW 14.2 (11.5-15.5) % Plt Count 304 (150-450) k/uL MPV 8.9 Neutrophils % 73 % Lymphocytes % 19 % Monocytes % 5 % Eosinophils % 1 % Basophils % 0 % Neutrophils # 6.6 (1.3-7.7) k/uL Lymphocytes # 1.7 (1.0-4.8) k/uL Monocytes # 0.4 (0-1.0) k/uL Eosinophils # 0.1 (0-0.7) k/uL Basophils # 0.0 (0-0.2) k/uL Sodium 134 L (137-145) mmol/L Potassium 3.3 L (3.5-5.1) mmol/L Chloride 96 L (98-107) mmol/L Carbon Dioxide 25 (22-30) mmol/L Anion Gap 13 mmol/L BUN 5 L (7-17) mg/dL Creatinine 0.60 (0.52-1.04) mg/dL Est GFR (CKD-EPI)AfAm >90 (>60 ml/min/1.73 sqM) Est GFR (CKD-EPI)NonAf >90 (>60 ml/min/1.73 sqM) Glucose 123 H (74-99) mg/dL Plasma Lactic Acid Christiano (0.7-2.0) mmol/L Calcium 9.0 (8.4-10.2) mg/dL Total Bilirubin 0.6 (0.2-1.3) mg/dL AST 33 (14-36) U/L ALT 23 (4-34) U/L Alkaline Phosphatase 72 (38-126) U/L Total Protein 7.5 (6.3-8.2) g/dL Albumin 4.4 (3.5-5.0) g/dL Influenza Type A (PCR) Not Detected (Not Detectd) Influenza Type B (PCR) Not Detected (Not Detectd) RSV (PCR) Not Detected (Not Detectd) SARS-CoV-2 (PCR) Not Detected (Not Detectd) 04/28/24 Range/Units 17:57 WBC (3.8-10.6) k/uL RBC (3.80-5.40) m/uL Hgb (11.4-16.0) gm/dL Hct (34.0-46.0) % MCV (80.0-100.0) fL MCH (25.0-35.0) pg MCHC (31.0-37.0) g/dL RDW (11.5-15.5) % Plt Count (150-450) k/uL MPV Neutrophils % % Lymphocytes % % Monocytes % % Eosinophils % % Basophils % % Neutrophils # (1.3-7.7) k/uL Lymphocytes # (1.0-4.8) k/uL Monocytes # (0-1.0) k/uL Eosinophils # (0-0.7) k/uL Basophils # (0-0.2) k/uL Sodium (137-145) mmol/L Potassium (3.5-5.1) mmol/L Chloride (98-107) mmol/L Carbon Dioxide (22-30) mmol/L Anion Gap mmol/L BUN (7-17) mg/dL Creatinine (0.52-1.04) mg/dL Est GFR (CKD-EPI)AfAm (>60 ml/min/1.73 sqM) Est GFR (CKD-EPI)NonAf (>60 ml/min/1.73 sqM) Glucose (74-99) mg/dL Plasma Lactic Acid Christiano 1.1 (0.7-2.0) mmol/L Calcium (8.4-10.2) mg/dL Total Bilirubin (0.2-1.3) mg/dL AST (14-36) U/L ALT (4-34) U/L Alkaline Phosphatase (38-126) U/L Total Protein (6.3-8.2) g/dL Albumin (3.5-5.0) g/dL Influenza Type A (PCR) (Not Detectd) Influenza Type B (PCR) (Not Detectd) RSV (PCR) (Not Detectd) SARS-CoV-2 (PCR) (Not Detectd) - Radiology Data Radiology results: report reviewed, image reviewed Disposition Clinical Impression: Bilateral pneumonia, History of asthma Disposition: ADMITTED IP TO THIS HOSP
[2024-04-28] MEDS: IBUPROFEN 800 MG TAB PO STA (17:42)
[2024-04-28] MEDS ORDERED: PNEUMONIA PROTOCOL UTILIZED 1 EACH MISC PO PRN (17:43)
[2024-04-28] MEDS: BENZONATATE 100 MG CAP PO STA (17:43)
[2024-04-28] MEDS: ACETAMINOPHEN TAB 500 MG TAB PO STA (17:43)
[2024-04-28] MEDS: methylPREDNISolone SOD SUCCI 125 MG/2 ML VIAL IV STA (17:59)
[2024-04-28] MEDS: SODIUM CHLORIDE 0.9% 1,000 ML IV STA ×3 (17:59→19:54)
[2024-04-28] MEDS: IPRATROPIUM-ALBUTEROL 3 ML NEB INHALATION STA (18:09)
[2024-04-28 18:12] LABS: Basophils % (A) 0 %; Eosinophils # (A) 0.1 k/uL (0-0.7); Eosinophils % (A) 1 %; HCT 38.4 % (34.0-46.0); HGB 12.7 gm/dL (11.4-16.0); Lymphocytes # (A) 1.7 k/uL (1.0-4.8); Lymphocytes % (A) 19 %; MCH 25.6 pg (25.0-35.0); MCV 77.5 fL (80.0-100.0); Mean Platelet Volume 8.9; Monocytes # (A) 0.4 k/uL (0-1.0); Monocytes % (A) 5 %; Neutrophils # (A) 6.6 k/uL (1.3-7.7); Neutrophils % (A) 73 %; Platelet Count 304 k/uL (150-450); RBC 4.95 m/uL (3.80-5.40); RDW 14.2 % (11.5-15.5); WBC 9.1 k/uL (3.8-10.6)
[2024-04-28 18:28] LABS: ALT 23 U/L (4-34); AST 33 U/L (14-36); African American GFR (CKD) >90 (>60 ml/min/1.73 sqM); Albumin 4.4 g/dL (3.5-5.0); Alkaline Phosphatase 72 U/L (38-126); Anion Gap 13 mmol/L; Blood Urea Nitrogen 5 mg/dL (7-17); Carbon Dioxide 25 mmol/L (22-30); Chloride 96 mmol/L (98-107); Glucose 123 mg/dL (74-99); Non-African American GFR(CKD) >90 (>60 ml/min/1.73 sqM); Potassium 3.3 mmol/L (3.5-5.1); Sodium 134 mmol/L (137-145); Total Bilirubin 0.6 mg/dL (0.2-1.3); Total Protein 7.5 g/dL (6.3-8.2)
[2024-04-28] MEDS: AZITHROMYCIN 500 MG in SODIUM CHLORIDE 0.9% 250 ML IVPB STA (18:39)
[2024-04-28] MEDS ORDERED: ONDANSETRON 4 MG/2 ML VIAL IVP PRN (18:50)
[2024-04-28] MEDS ORDERED: HYDROcodone/APAP 5-325MG 1 EACH TAB PO PRN (18:50)
[2024-04-28] MEDS ORDERED: NALOXONE 0.4 MG/ML 1 ML VIAL IV PRN (18:50)
[2024-04-28] MEDS ORDERED: MORPHINE SULFATE 4 MG/ML SYRINGE IV PRN (18:50)
[2024-04-28] MEDS ORDERED: IBUPROFEN 400 MG TAB PO PRN (18:50)
[2024-04-28] MEDS: AZITHROMYCIN 500 MG TAB PO STA (20:00)
[2024-04-28] MEDS: IPRATROPIUM-ALBUTEROL 3 ML NEB INHALATION PRN (22:22)
[2024-04-28] MEDS: POTASSIUM CHLORIDE ER 20 MEQ TAB.ER PO STA (22:42)
[2024-04-29] MEDS: guaiFENesin-DM 600/30MG 1 EACH TAB.ER.12H PO PRN (02:28)
[2024-04-29] MEDS: IPRATROPIUM-ALBUTEROL 3 ML NEB INHALATION SCH (07:30)
--- NOTE | 2024-04-29 07:44 | XR ---
EXAMINATION TYPE: XR chest 1V portable DATE OF EXAM: 04/29/2024 COMPARISON: 04/28/2024 CLINICAL INDICATION: Female, 23 years old with history of pneumonia; , TECHNIQUE: XR chest 1V portable views of the chest. FINDINGS: Bilateral patchy areas of consolidation. Limited inspiration. No pneumothorax.. Heart size normal an d no overt failure. Osseous structures intact. IMPRESSION: 1. Bilateral infiltrate\pneumonia stable.. [facility], , 04/29/2024 7:42 AM
[2024-04-29] MEDS: methylPREDNISolone SOD SUCCI 125 MG/2 ML VIAL IV SCH (08:46)
[2024-04-29] MEDS: AZITHROMYCIN 500 MG TAB PO SCH (08:46)
[2024-04-29] MEDS: PANTOPRAZOLE 40 MG/10 ML VIAL IV SCH (08:47)
[2024-04-29] MEDS ORDERED: DEXTROSE 50% SYRINGE 50 ML IVP PRN ×2 (11:37)
--- NOTE | 2024-04-29 12:01 | P.HPIM ---
History of Present Illness H&P Date: 04/29/24 This is a 23-year-old female with past medical history significant for recent C- section status post placental abruption 10/13, gestational diabetes ,childhood asthma, eczema, hypoglycemia,POTS,Vaper, morbid obesity, BMI 35 and multiple other medical issues presented to the ER with complaints of fevers, shortness of breath, nonproductive cough x 1 week. Patient reports for 1 week she has had minimal shortness of breath, fevers, shakiness, nonproductive cough, headache with loss of voice. Denies sore throat, denies congestion. Reports no vaping x 1 week. did not see PCP. On admission, tachycardic, Tmax 102.8, normal WBC. viral studies negative, hCG negative, procalcitonin 0.24, CRP 9.6, lactic acid 1.1, glucose 123, renal function stable, sodium 134, potassium 3.3. Maintaining O2 sats in the 90s on room air. Chest x-ray reported left mid and lower lung infiltrate with a mild right midlung infiltrate, correlate for pneumonia.Repeat chest x-ray reported bilateral infiltrate/pneumonia stable. Review of Systems ROS Statement: Those systems with pertinent positive or pertinent negative responses have been documented in the HPI. ROS Other: All systems not noted in ROS Statement are negative. Past Medical History Past Medical History: Asthma Additional Past Medical History / Comment(s): Eczema, hypoglycemia, POTS, gestational diabetes History of Any Multi-Drug Resistant Organisms: None Reported Past Surgical History: Adenoidectomy, Section, Tonsillectomy Past Anesthesia/Blood Transfusion Reactions: No Reported Reaction Past Psychological History: No Psychological Hx Reported Smoking Status: Vaper Past Alcohol Use History: None Reported Past Drug Use History: None Reported - Past Family History Father Family Medical History: Diabetes Mellitus, Hypertension Medications and Allergies Home Medications Medication Instructions Recorded Confirmed Type Ibuprofen [Motrin] 800 mg PO TID PRN 04/28/24 04/28/24 History Allergies Allergy/AdvReac Type Severity Reaction Status Date / Time bee venom protein (honey bee) Allergy Swelling Verified 04/28/24 19:36 @site of sting Physical Exam Vitals: Vital Signs Temp Pulse Pulse Resp BP BP Pulse Ox 04/29/24 08:00 97.5 F L 89 18 108/74 93 L 04/29/24 07:42 64 04/29/24 07:33 97 04/29/24 07:30 62 04/29/24 01:58 97.4 F L 73 16 107/72 95 04/29/24 01:11 97.6 F 72 18 96/59 97 04/28/24 22:28 71 18 04/28/24 22:22 69 18 04/28/24 19:55 99.9 F H 90 20 102/66 96 04/28/24 18:51 100.6 F H 04/28/24 18:21 76 04/28/24 18:12 75 04/28/24 18:03 108 H 20 95 04/28/24 17:05 18 04/28/24 16:31 102.8 F H 115 H 20 129/71 95 Intake and Output 04/28/24 04/29/24 04/29/24 22:59 06:59 14:59 Intake Total 1000 Balance 1000 Intake: Intake, IV Titration 520 Amount Sodium Chloride 0.9% 1, 520 000 ml @ 130 mls/hr IV . Q7H42M STA Rx#:[id number] Oral 480 Other: # Voids 2 Weight 84.822 kg 84.822 kg PHYSICAL EXAM: VITAL SIGNS: [Reviewed] GENERAL: Alert and oriented x 3, sitting up in bed, fatigued, hoarse, coughing. HEENT: Normocephalic conjunctivae normal. eyes normal. Mucous membranes dry. NECK: Supple, no JVD. No thyroid enlargement. No LNs CARDIOVASCULAR: S1, S2 regular. No murmur RESPIRATION: Unlabored, equal air entry, scattered crackles throughout. ABDOMEN: Soft, nondistended, nontender . No guarding. no masses palpable. No ascites, No hepatosplenomegaly.Bowel sounds heard. LEGS: No edema. no swelling NERVOUS SYSTEM: Cranial N 2-12 grossly normal. No focal deficits. Strength and sensation grossly intact. Skin: Warm and dry, no rash. Results CBC & Chem 7: 04/28/24 17:57 04/28/24 17:57 Labs: Abnormal Lab Results - Last 24 Hours (Table) 04/28/24 04/28/24 Range/Units 17:57 17:57 MCV 77.5 L (80.0-100.0) fL Sodium 134 L (137-145) mmol/L Potassium 3.3 L (3.5-5.1) mmol/L Chloride 96 L (98-107) mmol/L BUN 5 L (7-17) mg/dL Glucose 123 H (74-99) mg/dL C-Reactive Protein 9.60 H (0.00-0.80) mg/dL Thrombosis Risk Factor Assmnt - Choose All That Apply Any of the Below Risk Factors Present?: Yes Each Factor Represents 1 point: Obesity (BMI >25), Serious lung disease incl. pneumonia (< 1month) Other Risk Factors: No Other congenital or acquired thrombophilia - If yes, enter type in comment: No Thrombosis Risk Factor Assessment Total Risk Factor Score: 2 Thrombosis Risk Factor Assessment Level: Low Risk Assessment and Plan Assessment: Sepsis secondary to acute bilateral pneumonia, community-acquired History of childhood asthma recent status post placental abruption 10/13 Gestational diabetes History of hypoglycemia History of POTS Eczema Vapes, cessation reinforced Morbid obesity, BMI 35 Plan: Continue on current medication regimen ,monitoring and symptomatic treatme nt.repeat BMP ordered, potassium replacement protocol ordered. blood cultures in progress, sputum culture not yet collected. IV fluid hydration, antibiotics. Pulmonary consult in place.Aggressive pulmonary toileting with nebulized bronchodilators, IV steroids. Post monitoring of Accu-Cheks with NovoLog sliding scale ordered. Increase ambulation as tolerated. The impression and plan of care has been dictated as directed. : I performed a history and examination of this patient, discussed the same with the dictator. I agree with the dictator's note ,documented as a scribe. Any additional findings or plans will be noted.
[2024-04-29] MEDS ORDERED: Potassium Replacement Protocol 1 EACH MISC MISCELLANE PRN (12:19)
[2024-04-29] MEDS ORDERED: Magnesium Replacement Protocol 1 EACH MISC MISCELLANE PRN (12:20)
[2024-04-29] MEDS: INSULIN ASPART (NovoLOG) 100 UNIT/ML VIAL SQ SCH (12:51)
[2024-04-29] MEDS: POTASSIUM CHLORIDE ER 20 MEQ TAB.ER PO STA (12:51)
[2024-04-29 13:22] LABS: African American GFR (CKD) >90 (>60 ml/min/1.73 sqM); Anion Gap 12 mmol/L; Blood Urea Nitrogen 7 mg/dL (7-17); Calcium 9.2 mg/dL (8.4-10.2); Carbon Dioxide 22 mmol/L (22-30); Chloride 111 mmol/L (98-107); Glucose 175 mg/dL (74-99); Magnesium 2.3 mg/dL (1.6-2.3); Non-African American GFR(CKD) >90 (>60 ml/min/1.73 sqM); Potassium 3.3 mmol/L (3.5-5.1); Sodium 145 mmol/L (137-145)
--- NOTE | 2024-04-29 15:58 | P.CNPUL ---
History of Present Illness Consult date: 04/29/24 Reason for consult: dyspnea, pneumonia History of present illness: This is a 23-year-old female patient who is being seen for shortness of breath. The patient is healthy. She has several young children at home who are sick and approximately a week ago the patient started having symptoms of URI and subsequently she had increased fever, cough, chest congestion and shortness of breath. She has previous history of childhood asthma and she is obese. She also has history of eczema and POTS. She is obese with a body mass index of 35. She came into the emergency department and chest x-ray showed bilateral consolidation consistent with bilateral pneumonia. The patient has bilateral patchy areas of consolidation and the patient was started on a combination of Rocephin and Zithromax. The viral screen was negative. Procalcitonin level was 0.24. BUN was 7 with a creatinine of 0.4 and sodium levels of 145 with a potassium level of 3.3. The white cell count of 9.1 with a hemoglobin 12.7. The patient continues to have cough and congestion and some limited wheezing. Pulse ox 94% room air oxygen. No travel history. She is on DuoNeb nebulized treatments [id number] and she is also on IV Solu-Medrol 60 mg every 6 hours. She is having no nausea vomiting or diarrhea. No altered mentation. Review of Systems Constitutional: Reports fatigue, Reports fever Eyes: denies as per HPI, denies blurred vision, denies bulging eye, denies decreased vision, denies diplopia, denies discharge, denies dry eye, denies irritation, denies itching, denies pain, denies photophobia, denies loss of peripheral vision, denies loss of vision, denies tunnel vision/blind spots Ears: deny: decreased hearing, ear discharge, earache, tinnitus Ears, nose, mouth and throat: Reports nasal congestion Breasts: absent: as per HPI, change in shape, gynecomastia, masses, nipple discharge, pain, skin changes, swelling Cardiovascular: Reports decreased exercise tolerance, Reports dyspnea on exertion Respiratory: Reports cough, Reports cough with sputum, Reports dyspnea, Reports wheezing Gastrointestinal: Reports as per HPI Genitourinary: Reports as per HPI Menstruation: Reports as per HPI Musculoskeletal: Reports as per HPI Musculoskeletal: absent: ankle pain, ankle stiffness, ankle swelling, as per HPI, elbow pain, elbow stiffness, elbow swelling, foot pain, foot stiffness, foot swelling, hand pain, hand stiffness, hand swelling, hip pain, hip stiffness, hip swelling, knee pain, knee stiffness, knee swelling, shoulder pain, shoulder stiffness, shoulder swelling, wrist pain, wrist stiffness, wrist swelling Integumentary: Reports as per HPI Neurological: Reports as per HPI Psychiatric: Reports as per HPI Endocrine: Reports as per HPI, Reports excessive sweating Hematologic/Lymphatic: Reports as per HPI Allergic/Immunologic: Reports as per HPI Past Medical History Past Medical History: Asthma Additional Past Medical History / Comment(s): Eczema, hypoglycemia, POTS, gestational diabetes History of Any Multi-Drug Resistant Organisms: None Reported Past Surgical History: Adenoidectomy, Section, Tonsillectomy Past Anesthesia/Blood Transfusion Reactions: No Reported Reaction Past Psychological History: No Psychological Hx Reported Smoking Status: Vaper Past Alcohol Use History: None Reported Past Drug Use History: None Reported - Past Family History Father Family Medical History: Diabetes Mellitus, Hypertension Medications and Allergies Home Medications Medication Instructions Recorded Confirmed Type Ibuprofen [Motrin] 800 mg PO TID PRN 04/28/24 04/28/24 History Allergies Allergy/AdvReac Type Severity Reaction Status Date / Time bee venom protein (honey bee) Allergy Swelling Verified 04/28/24 19:36 @site of sting Physical Exam Vitals: Vital Signs Temp Pulse Pulse Resp BP BP Pulse Ox 04/29/24 11:39 75 04/29/24 11:28 73 04/29/24 08:00 97.5 F L 89 18 108/74 93 L 04/29/24 07:42 64 04/29/24 07:33 97 04/29/24 07:30 62 04/29/24 01:58 97.4 F L 73 16 107/72 95 04/29/24 01:11 97.6 F 72 18 96/59 97 04/28/24 22:28 71 18 04/28/24 22:22 69 18 04/28/24 19:55 99.9 F H 90 20 102/66 96 04/28/24 18:51 100.6 F H 04/28/24 18:21 76 04/28/24 18:12 75 04/28/24 18:03 108 H 20 95 04/28/24 17:05 18 04/28/24 16:31 102.8 F H 115 H 20 129/71 95 Intake and Output 04/28/24 04/29/24 04/29/24 22:59 06:59 14:59 Intake Total 1000 Balance 1000 Intake: Intake, IV Titration 520 Amount Sodium Chloride 0.9% 1, 520 000 ml @ 130 mls/hr IV . Q7H42M STA Rx#:[id number] Oral 480 Other: # Voids 2 Weight 84.822 kg 84.822 kg The patient appeared well nourished and normally developed. Vital signs as documented. Patient is currently on room air oxygen. Obese with a body mass index of 35.3. Head exam is unremarkable. No scleral icterus or corneal arcus noted. Neck is without jugular venous distension, thyromegaly, or carotid bruits. Carotid upstrokes are brisk bilaterally. Lungs diminished breath sounds along with scattered rhonchi and scattered expiratory wheeze and minimal crackles in the mid lungs bilaterally. She is not using accessory muscles of breathing. Cardiac exam reveals the PMI to be normally sized and situated. Rhythm is regular. First and second heart sounds normal. No murmurs, rubs or gallops. Abdominal exam reveals normal bowel sounds, no masses, no organomegaly and no aortic enlargement. Extremities are nonedematous and both femoral and pedal pulses are normal. Examination of the skin revealed no evidence of significant rashes, suspicious appearing nevi or other concerning lesions. Neurologically, the patient is awake and alert and the patient does not have any focal neurological deficit. Cranial nerves are essentially intact. Results - Laboratory Findings CBC and BMP: 04/28/24 17:57 04/29/24 12:44 Abnormal lab findings: Abnormal Labs 04/28/24 04/28/24 17:57 17:57 MCV 77.5 L Sodium 134 L Potassium 3.3 L Chloride 96 L BUN 5 L Glucose 123 H C-Reactive Protein 9.60 H - Diagnostic Findings Chest x-ray: image reviewed Assessment and Plan Plan: Acute bilateral community-acquired pneumonia, likely bacterial. Procalcitonin level is mildly elevated. Viral screen is negative Acute shortness of breath secondary to above Acute hypoxic respiratory failure currently on room air with a pulse ox of 94% Childhood asthma with secondary exacerbation secondary pneumonia. Noted the patient has not been utilizing any form of maintenance as per medication on outpatient basis Obesity History of gestational diabetes History of pots disease Plan Collect sputum Gram stain and culture and blood culture Monitor oxygenation Continue Rocephin and Zithromax DuoNeb nebulized treatments [id number] IV Solu-Medrol Repeat chest x-ray within next 24 to 48 hours. Clinically stable Will follow
[2024-04-29] MEDS: IBUPROFEN 800 MG TAB PO PRN (20:13)
[2024-04-30] MEDS: ACETAMINOPHEN TAB 325 MG TAB PO PRN (01:59)
[2024-04-30 07:38] LABS: Basophils # (A) 0.1 k/uL (0-0.2); Basophils % (A) 0 %; Eosinophils % (A) 0 %; HCT 37.2 % (34.0-46.0); Lymphocytes # (A) 1.5 k/uL (1.0-4.8); Lymphocytes % (A) 8 %; MCH 26.2 pg (25.0-35.0); MCHC 32.3 g/dL (31.0-37.0); MCV 81.1 fL (80.0-100.0); Monocytes # (A) 0.6 k/uL (0-1.0); Monocytes % (A) 3 %; Neutrophils # (A) 16.9 k/uL (1.3-7.7); Neutrophils % (A) 88 %; Platelet Count 375 k/uL (150-450); RBC 4.59 m/uL (3.80-5.40); RDW 14.7 % (11.5-15.5); WBC 19.2 k/uL (3.8-10.6)
[2024-04-30 07:52] LABS: African American GFR (CKD) >90 (>60 ml/min/1.73 sqM); Anion Gap 11 mmol/L; Blood Urea Nitrogen 9 mg/dL (7-17); Calcium 9.2 mg/dL (8.4-10.2); Carbon Dioxide 20 mmol/L (22-30); Chloride 110 mmol/L (98-107); Glucose 194 mg/dL (74-99); Magnesium 2.1 mg/dL (1.6-2.3); Non-African American GFR(CKD) >90 (>60 ml/min/1.73 sqM); Sodium 141 mmol/L (137-145)
[2024-04-30 08:00] LABS: Glucose,Whole Blood 187 mg/dL (70-110)
[2024-04-30 12:18] LABS: Glucose,Whole Blood 297 mg/dL (70-110)
--- NOTE | 2024-04-30 13:31 | P.PN ---
Subjective Progress Note Date: 04/30/24 This is a 23-year-old female with past medical history significant for recent C- section status post placental abruption 10/13, gestational diabetes ,childhood asthma, eczema, hypoglycemia,POTS,Vaper, morbid obesity, BMI 35 and multiple other medical issues presented to the ER with complaints of fevers, shortness of breath, nonproductive cough x 1 week. Patient reports for 1 week she has had minimal shortness of breath, fevers, shakiness, nonproductive cough, headache with loss of voice. Denies sore throat, denies congestion. Reports no vaping x 1 week. did not see PCP. On admission, tachycardic, Tmax 102.8, normal WBC. viral studies negative, hCG negative, procalcitonin 0.24, CRP 9.6, lactic acid 1.1, glucose 123, renal function stable, sodium 134, potassium 3.3. Maintaining O2 sats in the 90s on room air. Chest x-ray reported left mid and lower lung infiltrate with a mild right midlung infiltrate, correlate for pneumonia.Repeat chest x-ray reported bilateral infiltrate/pneumonia stable. 02/28. Patient seen examined. Complaining of chest tightness. States it is h arder to take deep breaths. Denies any cough. Denies any fever or chills REVIEW OF SYSTEMS: CONSTITUTIONAL: No fever, no malaise,. CARDIOVASCULAR: No chest pain, no palpitations, no syncope. PULMONARY: As mentioned above GASTROINTESTINAL: No diarrhea, no nausea, no vomiting, no abdominal pain. NEUROLOGICAL: No headaches, no weakness, PHYSICAL EXAMINATION: GENERAL: The patient is alert and oriented x3, not in any acute distress. Well developed, well nourished. HEENT: Pupils are round and equally reacting to light. EOMI. No scleral icterus. No conjunctival pallor. Normocephalic, atraumatic. No pharyngeal erythema. No thyromegaly. CARDIOVASCULAR: S1 and S2 present. No murmurs, rubs, or gallops. PULMONARY: Coarse breath sound bilaterally, no wheezing or crackles. ABDOMEN: Soft, nontender, nondistended, normoactive bowel sounds. No palpable organomegaly. MUSCULOSKELETAL: No joint swelling or deformity. EXTREMITIES: No cyanosis, clubbing, or pedal edema. NEUROLOGICAL: Gross neurological examination did not reveal any focal deficits. SKIN: No rashes. Assessment and plan Sepsis secondary to acute bilateral pneumonia, community-acquired History of childhood asthma recent status post placental abruption 10/13 Gestational diabetes History of hypoglycemia History of POTS Eczema Vapes, cessation reinforced Morbid obesity, BMI 35 Monitor vital signs Monitor CBC Monitor CMP Encourage use of I-S Encourage use of incentive spirometer Continue breathing treatment Continue IV Solu-Medrol Continue IV Rocephin and azithromycin Pulmonology following Labs and medication were reviewed.. Continue same treatment. Continue with symptomatic treatment. Resume home medication. Monitor labs and vitals. DVT and GI prophylaxis. Further recommendations as per clinical course of the patient Dictation was produced using [employer] dictation software. please excuse any grammatical, word or spelling errors. Objective - Vital Signs Vital signs: Vital Signs Temp 97.5 F L 04/30/24 13:13 Pulse 81 04/30/24 13:13 Resp 16 04/30/24 13:13 BP 121/76 04/30/24 13:13 Pulse Ox 94 L 04/30/24 13:13 FiO2 Intake & Output 04/29/24 04/30/24 04/30/24 18:59 06:59 18:59 Intake Total 1280 598 Balance 1280 598 Intake: Oral 1280 598 Other: Voiding Method Toilet Toilet # Voids 1 - Labs CBC & Chem 7: 04/30/24 07:12 04/30/24 07:12 Labs: Abnormal Lab Results - Last 24 Hours (Table) 04/30/24 04/30/24 04/30/24 Range/Units 07:12 07:12 07:58 WBC 19.2 H (3.8-10.6) k/uL Neutrophils # 16.9 H (1.3-7.7) k/uL Chloride 110 H (98-107) mmol/L Carbon Dioxide 20 L (22-30) mmol/L Creatinine 0.47 L (0.52-1.04) mg/dL Glucose 194 H (74-99) mg/dL POC Glucose (mg/dL) 187 H (70-110) mg/dL 04/30/24 Range/Units 12:17 WBC (3.8-10.6) k/uL Neutrophils # (1.3-7.7) k/uL Chloride (98-107) mmol/L Carbon Dioxide (22-30) mmol/L Creatinine (0.52-1.04) mg/dL Glucose (74-99) mg/dL POC Glucose (mg/dL) 297 H (70-110) mg/dL Microbiology - Last 24 Hours (Table) 04/28/24 17:59 Blood Culture - Preliminary Blood
--- NOTE | 2024-04-30 15:26 | P.PN ---
Subjective Progress Note Date: 04/30/24 This is a 23-year-old female patient who is being seen for shortness of breath. The patient is healthy. She has several young children at home who are sick and approximately a week ago the patient started having symptoms of URI and subsequently she had increased fever, cough, chest congestion and shortness of breath. She has previous history of childhood asthma and she is obese. She also has history of eczema and POTS. She is obese with a body mass index of 35. She came into the emergency department and chest x-ray showed bilateral consolidation consistent with bilateral pneumonia. The patient has bilateral patchy areas of consolidation and the patient was started on a combination of Rocephin and Zithromax. The viral screen was negative. Procalcitonin level was 0.24. BUN was 7 with a creatinine of 0.4 and sodium levels of 145 with a potassium level of 3.3. The white cell count of 9.1 with a hemoglobin 12.7. The patient continues to have cough and congestion and some limited wheezing. Pulse ox 94% room air oxygen. No travel history. She is on DuoNeb nebulized treatments [id number] and she is also on IV Solu-Medrol 60 mg every 6 hours. She is having no nausea vomiting or diarrhea. No altered mentation. On 04/30/2024, the patient is being seen for a follow-up. Clinically unchanged and she continues to be short of breath bronchospastic and wheezy. The white cell count of 19.2 with a hemoglobin of 12. BUN is 9 with a creatinine of 0.4 and sodium levels at 141. She remains on IV Rocephin. She remains on DuoNeb nebulizers [id number] and IV Solu-Medrol. Urine Legionella was negative. Viral screen was negative. Procalcitonin level was at 0.24. She remains on room air oxygen with a pulse ox of 94%. No nausea vomiting or diarrhea. Some chest discomfort and pain and frequent coughing episodes whenever she takes a deep breath. Objective - Vital Signs Vital signs: Vital Signs Temp 97.5 F L 04/30/24 13:13 Pulse 81 04/30/24 13:13 Resp 16 04/30/24 13:13 BP 121/76 04/30/24 13:13 Pulse Ox 94 L 04/30/24 13:13 FiO2 Intake & Output 04/29/24 04/30/24 04/30/24 18:59 06:59 18:59 Intake Total 1280 598 Balance 1280 598 Intake: Oral 1280 598 Other: Voiding Method Toilet Toilet # Voids 1 - Exam The patient appeared well nourished and normally developed. Vital signs as documented. Patient is currently on room air oxygen. Obese with a body mass index of 35.3. Head exam is unremarkable. No scleral icterus or corneal arcus noted. Neck is without jugular venous distension, thyromegaly, or carotid bruits. Carotid upstrokes are brisk bilaterally. Lungs diminished breath sounds along with scattered rhonchi and scattered expiratory wheeze and minimal crackles in the mid lungs bilaterally. She is not using accessory muscles of breathing. Cardiac exam reveals the PMI to be normally sized and situated. Rhythm is regular. First and second heart sounds normal. No murmurs, rubs or gallops. Abdominal exam reveals normal bowel sounds, no masses, no organomegaly and no aortic enlargement. Extremities are nonedematous and both femoral and pedal pulses are normal. Examination of the skin revealed no evidence of significant rashes, suspicious appearing nevi or other concerning lesions. Neurologically, the patient is awake and alert and the patient does not have any focal neurological deficit. Cranial nerves are essentially intact. - Labs CBC & Chem 7: 04/30/24 07:12 04/30/24 07:12 Labs: Abnormal Lab Results - Last 24 Hours (Table) 04/29/24 04/30/24 04/30/24 Range/Units 12:44 07:12 07:12 WBC 19.2 H (3.8-10.6) k/uL Neutrophils # 16.9 H (1.3-7.7) k/uL Potassium 3.3 L (3.5-5.1) mmol/L Chloride 111 H 110 H (98-107) mmol/L Carbon Dioxide 20 L (22-30) mmol/L Creatinine 0.44 L 0.47 L (0.52-1.04) mg/dL Glucose 175 H 194 H (74-99) mg/dL POC Glucose (mg/dL) (70-110) mg/dL 04/30/24 04/30/24 Range/Units 07:58 12:17 WBC (3.8-10.6) k/uL Neutrophils # (1.3-7.7) k/uL Potassium (3.5-5.1) mmol/L Chloride (98-107) mmol/L Carbon Dioxide (22-30) mmol/L Creatinine (0.52-1.04) mg/dL Glucose (74-99) mg/dL POC Glucose (mg/dL) 187 H 297 H (70-110) mg/dL Microbiology - Last 24 Hours (Table) 04/28/24 17:59 Blood Culture - Preliminary Blood Assessment and Plan Plan: Acute bilateral community-acquired pneumonia, likely bacterial. Procalcitonin level is mildly elevated. Viral screen is negative Acute shortness of breath secondary to above Acute hypoxic respiratory failure currently on room air with a pulse ox of 94% Childhood asthma with secondary exacerbation secondary pneumonia. Noted the patient has not been utilizing any form of maintenance as per medication on outpatient basis Obesity History of gestational diabetes History of pots disease Plan Will monitor the white cell count as the patient has developed some leukocytosis Clinically unchanged compared to yesterday we will continue the same antibiotic coverage. Collect sputum Gram stain and culture and blood culture Monitor oxygenation Continue Rocephin DuoNeb nebulized treatments [id number] IV Solu-Medrol Repeat chest x-ray in a.m. Oxygenation remained stable Will follow
[2024-04-30 16:58] LABS: Glucose,Whole Blood 278 mg/dL (70-110)
[2024-04-30 20:00] LABS: Glucose,Whole Blood 244 mg/dL (70-110)
[2024-05-01] MEDS: hydrOXYzine HCL 25 MG TAB PO PRN (01:25)
--- NOTE | 2024-05-01 06:37 | XR ---
EXAMINATION TYPE: XR chest 1V DATE OF EXAM: 05/01/2024 COMPARISON: 04/29/2024 HISTORY: Pneumonia TECHNIQUE: Single frontal view of the chest is obtained. FINDINGS: The partially consolidative opacities in the perihilar regions have nearly completely resolved in the interval. There is a broad linear band density in the retrocardiac region which is most likely atele ctasis. There is no pleural effusion or pneumothorax. The heart and pulmonary vasculature are normal. The oss eous structures are intact IMPRESSION: Significant improvement in the bilateral pneumonia. [facility], Workstation: [facility], 05/01/2024 6:35 AM
[2024-05-01 07:16] LABS: Glucose,Whole Blood 164 mg/dL (70-110)
[2024-05-01 07:34] VITALS: BP 126/65; RESP 16; TEMP 97.9
--- NOTE | 2024-05-01 11:01 | P.PN ---
Subjective Progress Note Date: 05/01/24 This is a 23-year-old female patient who is being seen for shortness of breath. The patient is healthy. She has several young children at home who are sick and approximately a week ago the patient started having symptoms of URI and subsequently she had increased fever, cough, chest congestion and shortness of breath. She has previous history of childhood asthma and she is obese. She also has history of eczema and POTS. She is obese with a body mass index of 35. She came into the emergency department and chest x-ray showed bilateral consolidation consistent with bilateral pneumonia. The patient has bilateral patchy areas of consolidation and the patient was started on a combination of Rocephin and Zithromax. The viral screen was negative. Procalcitonin level was 0.24. BUN was 7 with a creatinine of 0.4 and sodium levels of 145 with a potassium level of 3.3. The white cell count of 9.1 with a hemoglobin 12.7. The patient continues to have cough and congestion and some limited wheezing. Pulse ox 94% room air oxygen. No travel history. She is on DuoNeb nebulized treatments [id number] and she is also on IV Solu-Medrol 60 mg every 6 hours. She is having no nausea vomiting or diarrhea. No altered mentation. On 04/30/2024, the patient is being seen for a follow-up. Clinically unchanged and she continues to be short of breath bronchospastic and wheezy. The white cell count of 19.2 with a hemoglobin of 12. BUN is 9 with a creatinine of 0.4 and sodium levels at 141. She remains on IV Rocephin. She remains on DuoNeb nebulizers [id number] and IV Solu-Medrol. Urine Legionella was negative. Viral screen was negative. Procalcitonin level was at 0.24. She remains on room air oxygen with a pulse ox of 94%. No nausea vomiting or diarrhea. Some chest discomfort and pain and frequent coughing episodes whenever she takes a deep breath. On 05/01/2024, the patient is on room air oxygen. Continues to be bronchospastic and wheezy in her chest remains congested and the patient is also complaining of soreness in her chest. Nevertheless, the follow-up chest x-ray that was done today this morning at around 6:30 AM showed significant improvement in the bilateral pneumonia. The patient had developed some leukocytosis. Will monitor the white cell count. Blood culture is negative thus far. Blood sugars at 164. Objective - Vital Signs Vital signs: Vital Signs Temp 97.9 F 05/01/24 07:15 Pulse 68 05/01/24 07:58 Resp 16 05/01/24 07:15 BP 126/65 05/01/24 07:15 Pulse Ox 95 05/01/24 07:48 FiO2 21 05/01/24 07:48 Intake & Output 04/30/24 05/01/24 05/01/24 18:59 06:59 18:59 Intake Total 1918 570 236 Balance 1918 570 236 Intake: Oral 838 570 236 Blood Product 1080 Other: Voiding Method Toilet Toilet # Voids 4 - Exam The patient appeared well nourished and normally developed. Vital signs as documented. Patient is currently on room air oxygen. Obese with a body mass index of 35.3. Head exam is unremarkable. No scleral icterus or corneal arcus noted. Neck is without jugular venous distension, thyromegaly, or carotid bruits. Carotid upstrokes are brisk bilaterally. Lungs diminished breath sounds along with scattered rhonchi and scattered expiratory wheeze and minimal crackles in the mid lungs bilaterally. She is not using accessory muscles of breathing. Cardiac exam reveals the PMI to be normally sized and situated. Rhythm is regular. First and second heart sounds normal. No murmurs, rubs or gallops. Abdominal exam reveals normal bowel sounds, no masses, no organomegaly and no aortic enlargement. Extremities are nonedematous and both femoral and pedal pulses are normal. Examination of the skin revealed no evidence of significant rashes, suspicious appearing nevi or other concerning lesions. Neurologically, the patient is awake and alert and the patient does not have any focal neurological deficit. Cranial nerves are essentially intact. - Labs CBC & Chem 7: 04/30/24 07:12 04/30/24 07:12 Labs: Abnormal Lab Results - Last 24 Hours (Table) 04/30/24 04/30/24 04/30/24 Range/Units 12:17 16:57 19:59 POC Glucose (mg/dL) 297 H 278 H 244 H (70-110) mg/dL 05/01/24 Range/Units 07:14 POC Glucose (mg/dL) 164 H (70-110) mg/dL Microbiology - Last 24 Hours (Table) 04/28/24 17:59 Blood Culture - Preliminary Blood Assessment and Plan Plan: Acute bilateral community-acquired pneumonia, likely bacterial. Procalcitonin level is mildly elevated. Viral screen is negative Acute shortness of breath secondary to above Acute hypoxic respiratory failure currently on room air with a pulse ox of 94% Childhood asthma with secondary exacerbation secondary pneumonia. Noted the patient has not been utilizing any form of maintenance as per medication on outpatient basis Obesity History of gestational diabetes History of pots disease Plan Clinically unchanged chest x-ray shows significant improvement in the bilateral pulmonary infiltrates. As such, will continue same antibiotic coverage. Will monitor the white cell count as the patient has developed some leukocytosis Blood culture is negative thus far. Monitor oxygenation, currently on room air oxygen Continue Rocephin DuoNeb nebulized treatments [id number] IV Solu-Medrol Repeat chest x-ray from this morning was reviewed and the chest x-ray is improving. Oxygenation remained stable Will follow
[2024-05-01] MEDS: KETOROLAC 15 MG/ML 1 ML VIAL IVP PRN (11:39)
[2024-05-01 12:04] LABS: Basophils # (M) 0 X 10*3/uL (0.00-0.10); Eosinophils # (M) 0 X 10*3/uL (0.04-0.35); HCT 34.8 % (37.2-46.3); HGB 11.4 g/dL (12.0-15.0); Lymphocytes # (M) 1.97 X 10*3/uL (0.90-5.00); MCH 27.8 pg (27.0-32.0); MCHC 32.8 g/dL (32.0-37.0); MCV 84.9 FL (80.0-97.0); Mean Platelet Volume 11.1 FL (9.5-12.2); Monocytes # (M) 0.74 X 10*3/uL (0.20-1.00); Myelocytes % 2 % (0-0); NRBC Per 100 WBC 0.05 X 10*3/uL (0.00-0.01); Neutrophils # (M) 21.13 X 10*3/uL (1.80-7.70); Neutrophils % (M) 86 %; Platelet Count 463 X 10*3/uL (140-440); Promyelocytes # (M) 0.25 k/uL (0); Promyelocytes % 1 %; RBC Morphology Normal (Normal); RDW 15.4 % (11.5-14.5); WBC 24.57 X 10*3/uL (4.50-10.00)
--- NOTE | 2024-05-01 12:29 | P.PN ---
Subjective Progress Note Date: 05/01/24 This is a 23-year-old female with past medical history significant for recent C- section status post placental abruption 10/13, gestational diabetes ,childhood asthma, eczema, hypoglycemia,POTS,Vaper, morbid obesity, BMI 35 and multiple other medical issues presented to the ER with complaints of fevers, shortness of breath, nonproductive cough x 1 week. Patient reports for 1 week she has had minimal shortness of breath, fevers, shakiness, nonproductive cough, headache with loss of voice. Denies sore throat, denies congestion. Reports no vaping x 1 week. did not see PCP. On admission, tachycardic, Tmax 102.8, normal WBC. viral studies negative, hCG negative, procalcitonin 0.24, CRP 9.6, lactic acid 1.1, glucose 123, renal function stable, sodium 134, potassium 3.3. Maintaining O2 sats in the 90s on room air. Chest x-ray reported left mid and lower lung infiltrate with a mild right midlung infiltrate, correlate for pneumonia.Repeat chest x-ray reported bilateral infiltrate/pneumonia stable. 04/30. Patient seen examined. Complaining of chest tightness. States it is harder to take deep breaths. Denies any cough. Denies any fever or chills 05/01. Patient seen and examined. Patient continues to be very bronchospastic. Patient is very keen to go home and is crying and is anxious. Explained to her in detail regarding the need for her to stay in the hospital as she will be high risk of for clinical condition to deteriorate if discharged too early REVIEW OF SYSTEMS: CONSTITUTIONAL: No fever, no malaise,. CARDIOVASCULAR: No chest pain, no palpitations, no syncope. PULMONARY: As mentioned above GASTROINTESTINAL: No diarrhea, no nausea, no vomiting, no abdominal pain. NEUROLOGICAL: No headaches, no weakness, PHYSICAL EXAMINATION: GENERAL: The patient is alert and oriented x3, not in any acute distress. Well developed, well nourished. HEENT: Pupils are round and equally reacting to light. EOMI. No scleral icterus. No conjunctival pallor. Normocephalic, atraumatic. No pharyngeal erythema. No thyromegaly. CARDIOVASCULAR: S1 and S2 present. No murmurs, rubs, or gallops. PULMONARY: Coarse breath sound bilaterally, no wheezing or crackles. ABDOMEN: Soft, nontender, nondistended, normoactive bowel sounds. No palpable organomegaly. MUSCULOSKELETAL: No joint swelling or deformity. EXTREMITIES: No cyanosis, clubbing, or pedal edema. NEUROLOGICAL: Gross neurological examination did not reveal any focal deficits. SKIN: No rashes. Assessment and plan Sepsis secondary to acute bilateral pneumonia, community-acquired History of childhood asthma recent status post placental abruption 10/13 Gestational diabetes History of hypoglycemia History of POTS Eczema Vapes, cessation reinforced Morbid obesity, BMI 35 Monitor vital signs Monitor CBC Monitor CMP Encourage use of I-S Encourage use of incentive spirometer Continue breathing treatment Continue IV Solu-Medrol Continue IV Rocephin Pulmonology following Labs and medication were reviewed.. Continue same treatment. Continue with symptomatic treatment. Resume home medication. Monitor labs and vitals. DVT and GI prophylaxis. Further recommendations as per clinical course of the patient Dictation was produced using [employer] dictation software. please excuse any g rammatical, word or spelling errors. Objective - Vital Signs Vital signs: Vital Signs Temp 97.9 F 05/01/24 07:15 Pulse 72 05/01/24 11:08 Resp 16 05/01/24 07:15 BP 126/65 05/01/24 07:15 Pulse Ox 95 05/01/24 07:48 FiO2 21 05/01/24 07:48 Intake & Output 04/30/24 05/01/24 05/01/24 18:59 06:59 18:59 Intake Total 1918 570 236 Balance 1918 570 236 Intake: Oral 838 570 236 Blood Product 1080 Other: Voiding Method Toilet Toilet # Voids 4 - Labs CBC & Chem 7: 05/01/24 05:48 04/30/24 07:12 Labs: Abnormal Lab Results - Last 24 Hours (Table) 04/30/24 04/30/24 05/01/24 Range/Units 16:57 19:59 05:48 WBC 24.57 H (4.50-10.00) X 10*3/uL Hgb 11.4 L (12.0-15.0) g/dL Hct 34.8 L (37.2-46.3) % RDW 15.4 H (11.5-14.5) % Plt Count 463 H (140-440) X 10*3/uL Neutrophils # (Manual) 21.13 H (1.80-7.70) X 10*3/uL Eosinophils # (Manual) 0 L (0.04-0.35) X 10*3/uL NRBC/100 WBC Diff 0.05 H (0.00-0.01) X 10*3/uL POC Glucose (mg/dL) 278 H 244 H (70-110) mg/dL 05/01/24 Range/Units 07:14 WBC (4.50-10.00) X 10*3/uL Hgb (12.0-15.0) g/dL Hct (37.2-46.3) % RDW (11.5-14.5) % Plt Count (140-440) X 10*3/uL Neutrophils # (Manual) (1.80-7.70) X 10*3/uL Eosinophils # (Manual) (0.04-0.35) X 10*3/uL NRBC/100 WBC Diff (0.00-0.01) X 10*3/uL POC Glucose (mg/dL) 164 H (70-110) mg/dL Microbiology - Last 24 Hours (Table) 04/28/24 17:59 Blood Culture - Preliminary Blood
[2024-05-01 12:57] LABS: ALT 32 U/L (8-44); AST 26 U/L (13-35); Albumin 3.9 g/dL (3.8-4.9); Alkaline Phosphatase 88 U/L (41-126); Blood Urea Nitrogen 8.9 mg/dL (9.0-27.0); Calcium 9.2 mg/dL (8.7-10.3); Carbon Dioxide 20.3 mmol/L (21.6-31.8); Chloride 106 mmol/L (96-109); Globulin 2.6 g/dL (1.6-3.3); Glucose 166 mg/dL (70-110); Potassium 4.1 mmol/L (3.5-5.5); Sodium 142 mmol/L (135-145); Total Bilirubin <0.2 mg/dL (0.3-1.2); Total Protein 6.5 g/dL (6.2-8.2)
[2024-05-01 13:07] VITALS: PULSE 62
== END 2024-05-01 14:52 | disposition left against medical advice (07) | DRG 720 ==
LOC: EC 16:08 → 4SSUR 18:46 → 5NMEDONC 04-29 00:13
PROVIDERS: ADMIT Family Medicine; ATTEND Family Medicine
DX: A41.9 Sepsis, unspecified organism (principal); J18.9 Pneumonia, unspecified organism; J96.01 Acute respiratory failure with hypoxia; G90.A Postural orthostatic tachycardia syndrome [POTS]; E87.6 Hypokalemia; J45.901 Unspecified asthma with (acute) exacerbation; E66.01 Morbid (severe) obesity due to excess calories; Z68.35 Body mass index [BMI] 35.0-35.9, adult; Z91.030 Bee allergy status; Z86.32 Personal history of gestational diabetes; Z87.09 Personal history of other diseases of the respiratory system
CPT/HCPCS: 36415; 71045; 71046; 80048; 80053; 83036; 83605; 83735; 84145; 84484; 84703; 85025; 86140; 87040; 87449; 87636; 94640; 94760; 96361; 96365; 96366; 96368; 96375; 99285

== ENCOUNTER 2024-09-29 08:33 | Emergency (ER) | payer OTHER ==
--- NOTE | 2024-09-29 09:03 | ED ---
Abdominal Pain HPI - General Chief Complaint: Abdominal Pain Stated Complaint: abd pain Time Seen by Provider: 09/29/24 08:44 Source: patient, RN notes reviewed Mode of arrival: ambulatory Limitations: no limitations - History of Present Illness Initial Comments: 23-year-old female with a past medical history of POTS presenting to the emergency department for complaint of epigastric and right upper quadrant abdominal pain that started this morning that woke her from sleep at approximately 0530. Patient states that the pain is a stabbing squeezing and burning sensation that wraps to the right side of her abdomen. She denies associated difficulty in breathing, chest pain, nausea, vomiting, urinary or bowel habit changes. She denies recent dysuria, hematuria, increased urinary frequency or urgency, melena or hematochezia. Previous history of hysterectomy. States that she has not attempted taking medications to alleviate symptoms. - Related Data Home Medications Medication Instructions Recorded Confirmed Ibuprofen [Motrin] 800 mg PO TID PRN 04/28/24 04/28/24 Allergies Allergy/AdvReac Type Severity Reaction Status Date / Time bee venom protein (honey bee) Allergy Swelling Verified 09/29/24 08:41 @site of sting Review of Systems ROS Statement: Those systems with pertinent positive or pertinent negative responses have been documented in the HPI. ROS Other: All systems not noted in ROS Statement are negative. Past Medical History Past Medical History: Asthma Additional Past Medical History / Comment(s): Eczema, hypoglycemia, POTS, gestational diabetes History of Any Multi-Drug Resistant Organisms: None Reported Past Surgical History: Adenoidectomy, Section, Tonsillectomy Past Anesthesia/Blood Transfusion Reactions: No Reported Reaction Past Psychological History: No Psychological Hx Reported Smoking Status: Vaper Past Alcohol Use History: None Reported Past Drug Use History: None Reported - Past Family History Father Family Medical History: Diabetes Mellitus, Hypertension General Exam Limitations: no limitations General appearance: alert, in no apparent distress ENT exam: Present: normal exam, mucous membranes moist Respiratory exam: Present: normal lung sounds bilaterally. Absent: respiratory distress, wheezes, rales, rhonchi, stridor Cardiovascular Exam: Present: regular rate, normal rhythm, normal heart sounds. Absent: systolic murmur, diastolic murmur, rubs, gallop, clicks GI/Abdominal exam: Present: soft, tenderness (RUQ, epigastric), normal bowel sounds. Absent: distended, guarding, rebound, rigid Extremities exam: Present: normal inspection, full ROM, normal capillary refill. Absent: tenderness, pedal edema, joint swelling, calf tenderness Back exam: Present: normal inspection. Absent: CVA tenderness (R), CVA tenderness (L) Course Vital Signs 09/29/24 09/29/24 09/29/24 08:38 10:11 12:03 Temperature 97.8 F 98.4 F Pulse Rate 90 74 88 Respiratory 24 18 18 Rate Blood Pressure 133/85 116/65 108/84 O2 Sat by Pulse 99 99 100 Oximetry Medical Decision Making - Medical Decision Making Was pt. sent in by a medical professional or institution (, PA, OPERATIONS SUPERVISOR [employer], urgent care, hospital, or [facility]...) When possible be specific @ -No Did you speak to anyone other than the patient for history (EMS, parent, family, police, friend...)? What history was obtained from this source @ -No Did you review nursing and triage notes (agree or disagree)? Why? @ -I reviewed and agree with nursing and triage notes Were old charts reviewed (outside hosp., previous admission, EMS record, old EKG, old radiological studies, urgent care reports/EKG's, [facility] records)? Report findings @ -No old charts were reviewed Differential Diagnosis (chest pain, altered mental status, abdominal pain women, abdominal pain men, vaginal bleeding, weakness, fever, dyspnea, syncope, headache, dizziness, GI bleed, back pain, seizure, CVA, palpatations, mental health, musculoskeletal)? @ -Differential Abdominal Pain Women: Appendicitis, Cholecystitis, diverticulosis, ischemic bowel, pancreatitis, hepatitis, UTI, gastroenteritis, AAA, incarcerated hernia, bowel obstruction, constipation, inflammatory bowel, hepatitis, peptic ulcer disease, splenic infarction, perforated viscus, vulvitis, ovarian torsion, PID, kidney stone, placenta abruption, this is not meant to be an all-inclusive list EKG interpreted by me (3pts min.). @ -none X-rays interpreted by me (1pt min.). @ -None done CT interpreted by me (1pt min.). @ -CT of the abdomen pelvis with IV contrast reveals acute distal enteritis with no evidence of bowel obstruction U/S interpreted by me (1pt. min.). @ -Ultrasound of the gallbladder reveals hepatomegaly with mild fatty infiltration What testing was considered but not performed or refused? (CT, X-rays, U/S, labs)? Why? @ -None What meds were considered but not given or refused? Why? @ -None Did you discuss the management of the patient with other professionals (professionals i.e. , PA, [employer], lab, RT, psych nurse, social worker aide, administrative office clerk, teacher, fisheries enforcement officer, case management director)? Give summary @ -No Was smoking cessation discussed for >3mins.? @ -No Was critical care preformed (if so, how long)? @ -No Were there social determinants of health that impacted care today? How? (Homelessness, low income, unemployed, alcoholism, drug addiction, transportati on, low edu. Level, literacy, decrease access to med. care, [facility], rehab)? @ -No Was there de-escalation of care discussed even if they declined (Discuss DNR or withdrawal of care, Hospice)? DNR status @ -No What co-morbidities impacted this encounter? (DM, HTN, Smoking, COPD, CAD, Cancer, CVA, ARF, Chemo, Hep., AIDS, mental health diagnosis, sleep apnea, morbid obesity)? @ -None Was patient admitted / discharged? Hospital course, mention meds given and route, prescriptions, significant lab abnormalities, going to OR and other pertinent info. @ -Discharge. 23-year-old female presents emergency department with abdominal pain. My evaluation the patient she is noted to be tearful and clutching her abdomen. Her initial vitals are stable. Abdominal exam markable for reproducible tenderness of the right upper quadrant epigastric with no real rigidity. She is provided with pain medications. Laboratory testing remarkable for leukocytosis of 18.22 with left shift neutrophils of 15.80. Patient has a mildly elevated lactic acid at 2.4. Urinalysis no signs infection, hCG is nega tive. Ultrasound of the gallbladder is unremarkable, shows hepatomegaly with mild fatty infiltration. With concern for leukocytosis with no clear cause abdominal pain patient will be evaluated via CT imaging of the abdomen. She is also provided with additional dose of pain medication and antiemetics. CT imaging reveals acute distal enteritis with no evidence of bowel obstruction or overall acute process. Reevaluation patient states she is feeling better after second pain medication. She is provided with starter pack of Tylenol 3 and Zofran and instructed to follow-up with primary care provider in the next 1 to 3 days. Return parameters discussed. Patient is stable for discharge. Case discussed with Dr. Valadez Undiagnosed new problem with uncertain prognosis? @ -No Drug Therapy requiring intensive monitoring for toxicity (Heparin, Nitro, Insulin, Cardizem)? @ -No Were any procedures done? @ -No Diagnosis/symptom? @ -Unspecified abdominal pain Acute, or Chronic, or Acute on Chronic? @ -Acute Uncomplicated (without systemic symptoms) or Complicated (systemic symptoms)? @ -Uncomplicated Side effects of treatment? @ -No Exacerbation, Progression, or Severe Exacerbation? @ -No Poses a threat to life or bodily function? How? (Chest pain, [place], DE, pneumonia, PE, COPD, DKA, ARF, appy, cholecystitis, CVA, Diverticulitis, Homicidal, Suicidal, threat to staff... and all critical care pts) @ -No - Lab Data Result diagrams: 09/29/24 09:20 09/29/24 09:20 Lab Results 09/29/24 09/29/24 09/29/24 Range/Units 09:20 09:20 09:20 WBC 18.22 H (4.50-10.00) 10*3/uL RBC 5.32 H (4.10-5.20) 10*6/uL Hgb 13.9 (12.0-15.0) g/dL Hct 42.4 (37.2-46.3) % MCV 79.7 L (80.0-97.0) fL MCH 26.1 L (27.0-32.0) pg MCHC 32.8 (32.0-37.0) g/dL Plt Count 416 (140-440) 10*3/uL MPV 10.1 (9.5-12.2) fL Immature Gran % (Auto) 0.4 % Neutrophils % 86.7 % Lymphocytes % 7.0 % Monocytes % 5.3 % Eosinophils % 0.4 % Basophils % 0.2 % Immature Gran # 0.07 H (0.00-0.04) 10*3/uL Neutrophils # 15.80 H (1.80-7.70) 10*3/uL Lymphocytes # 1.28 (0.90-5.00) 10*3/uL Monocytes # 0.96 (0.20-1.00) 10*3/uL Eosinophils # 0.08 (0.04-0.35) 10*3/uL Basophils # 0.03 (0.00-0.10) 10*3/uL Sodium (137-145) mmol/L Potassium (3.5-5.1) mmol/L Chloride (98-107) mmol/L Carbon Dioxide (22-30) mmol/L Anion Gap mmol/L BUN (7-17) mg/dL Creatinine (0.52-1.04) mg/dL Est GFR (CKD-EPI)AfAm (>60 ml/min/1.73 sqM) Est GFR (CKD-EPI)NonAf (>60 ml/min/1.73 sqM) Glucose (74-99) mg/dL Lactic Ac Sepsis Rflx Plasma Lactic Acid Christiano (0.7-2.0) mmol/L Calcium (8.4-10.2) mg/dL Total Bilirubin (0.2-1.3) mg/dL AST (14-36) U/L ALT (4-34) U/L Alkaline Phosphatase (38-126) U/L Total Protein (6.3-8.2) g/dL Albumin (3.5-5.0) g/dL Amylase (30-110) U/L Lipase (23-300) U/L Urine Color Yellow Urine Appearance Cloudy H (Clear) Urine pH 6.0 (5.0-8.0) Ur Specific [place] 1.026 (1.001-1.035) Urine Protein Negative (Negative) Urine Glucose (UA) Negative (Negative) Urine Ketones Negative (Negative) Urine Blood Negative (Negative) Urine Nitrite Negative (Negative) Urine Bilirubin Negative (Negative) Urine Urobilinogen <2.0 (<2.0) mg/dL Ur Leukocyte Esterase Moderate H (Negative) Urine WBC 2 (0-5) /hpf Ur Squamous Epith Cells 11 H (0-4) /hpf Urine Bacteria Rare H (None) /hpf Urine Mucus Few H (None) /hpf Urine HCG, Qual Not Detected (Not Detectd) 09/29/24 09/29/24 09/29/24 Range/Units 09:20 09:20 10:08 WBC (4.50-10.00) 10*3/uL RBC (4.10-5.20) 10*6/uL Hgb (12.0-15.0) g/dL Hct (37.2-46.3) % MCV (80.0-97.0) fL MCH (27.0-32.0) pg MCHC (32.0-37.0) g/dL Plt Count (140-440) 10*3/uL MPV (9.5-12.2) fL Immature Gran % (Auto) % Neutrophils % % Lymphocytes % % Monocytes % % Eosinophils % % Basophils % % Immature Gran # (0.00-0.04) 10*3/uL Neutrophils # (1.80-7.70) 10*3/uL Lymphocytes # (0.90-5.00) 10*3/uL Monocytes # (0.20-1.00) 10*3/uL Eosinophils # (0.04-0.35) 10*3/uL Basophils # (0.00-0.10) 10*3/uL Sodium 136 L (137-145) mmol/L Potassium 4.0 (3.5-5.1) mmol/L Chloride 103 (98-107) mmol/L Carbon Dioxide 21 L (22-30) mmol/L Anion Gap 12 mmol/L BUN 6 L (7-17) mg/dL Creatinine 0.49 L (0.52-1.04) mg/dL Est GFR (CKD-EPI)AfAm >90 (>60 ml/min/1.73 sqM) Est GFR (CKD-EPI)NonAf >90 (>60 ml/min/1.73 sqM) Glucose 114 H (74-99) mg/dL Lactic Ac Sepsis Rflx Y Plasma Lactic Acid Christiano 2.4 H* (0.7-2.0) mmol/L Calcium 9.9 (8.4-10.2) mg/dL Total Bilirubin 0.9 (0.2-1.3) mg/dL AST 31 (14-36) U/L ALT 36 H (4-34) U/L Alkaline Phosphatase 77 (38-126) U/L Total Protein 7.5 (6.3-8.2) g/dL Albumin 4.7 (3.5-5.0) g/dL Amylase 44 (30-110) U/L Lipase 70 (23-300) U/L Urine Color Urine Appearance (Clear) Urine pH (5.0-8.0) Ur Specific [place] (1.001-1.035) Urine Protein (Negative) Urine Glucose (UA) (Negative) Urine Ketones (Negative) Urine Blood (Negative) Urine Nitrite (Negative) Urine Bilirubin (Negative) Urine Urobilinogen (<2.0) mg/dL Ur Leukocyte Esterase (Negative) Urine WBC (0-5) /hpf Ur Squamous Epith Cells (0-4) /hpf Urine Bacteria (None) /hpf Urine Mucus (None) /hpf Urine HCG, Qual (Not Detectd) Disposition Clinical Impression: Unspecified abdominal pain Disposition: HOME SELF-CARE Condition: Stable Instructions (If sedation given, give patient instructions): Abdominal Pain (ED) Additional Instructions: Please return to the Emergency Department if symptoms worsen or any other concerns. Is patient prescribed a controlled substance at d/c from ED?: No Referrals: Faviola Castelan DO [Primary Care Provider] - 1-2 days Time of Disposition: 11:55
[2024-09-29] MEDS: MORPHINE SULFATE 4 MG/ML SYRINGE IVP STA (09:25)
[2024-09-29 09:40] LABS: Basophils # (A) 0.03 10*3/uL (0.00-0.10); Basophils % (A) 0.2 %; Eosinophils # (A) 0.08 10*3/uL (0.04-0.35); Eosinophils % (A) 0.4 %; HCT 42.4 % (37.2-46.3); HGB 13.9 g/dL (12.0-15.0); Lymphocytes # (A) 1.28 10*3/uL (0.90-5.00); MCH 26.1 pg (27.0-32.0); MCHC 32.8 g/dL (32.0-37.0); MCV 79.7 fL (80.0-97.0); Mean Platelet Volume 10.1 fL (9.5-12.2); Monocytes # (A) 0.96 10*3/uL (0.20-1.00); Monocytes % (A) 5.3 %; Neutrophils % (A) 86.7 %; Platelet Count 416 10*3/uL (140-440); RBC 5.32 10*6/uL (4.10-5.20); RDW 13.2 % (11.5-14.5); WBC 18.22 10*3/uL (4.50-10.00)
[2024-09-29 09:59] LABS: ALT 36 U/L (4-34); AST 31 U/L (14-36); African American GFR (CKD) >90 (>60 ml/min/1.73 sqM); Albumin 4.7 g/dL (3.5-5.0); Alkaline Phosphatase 77 U/L (38-126); Amylase 44 U/L (30-110); Anion Gap 12 mmol/L; Blood Urea Nitrogen 6 mg/dL (7-17); Calcium 9.9 mg/dL (8.4-10.2); Carbon Dioxide 21 mmol/L (22-30); Chloride 103 mmol/L (98-107); Glucose 114 mg/dL (74-99); Lipase 70 U/L (23-300); Non-African American GFR(CKD) >90 (>60 ml/min/1.73 sqM); Sodium 136 mmol/L (137-145); Total Bilirubin 0.9 mg/dL (0.2-1.3); Total Protein 7.5 g/dL (6.3-8.2)
[2024-09-29 10:00] LABS: Appearance,Urine Cloudy (Clear); Bacteria,Urine Rare /hpf; Bilirubin,Urine Negative (Negative); Blood,Urine Negative (Negative); Color,Urine Yellow; Glucose,Urine (UA) Negative (Negative); Ketones,Urine Negative (Negative); Leukocyte Esterase,Urine Moderate (Negative); Mucus,Urine Few /hpf; Nitrite,Urine Negative (Negative); Protein,Urine Negative (Negative); Specific Gravity,Urine 1.026 (1.001-1.035); Squamous Epithelial Cell,Urine 11 /hpf (0-4); Urobilinogen,Urine <2.0 mg/dL (<2.0); WBC,Urine 2 /hpf (0-5)
[2024-09-29 10:12] VITALS: RESP 18
--- NOTE | 2024-09-29 10:22 | US ---
EXAMINATION TYPE: US gallbladder DATE OF EXAM: 09/29/2024 COMPARISON: NONE CLINICAL INDICATION: Female, 23 years old with history of RUQ/epigastric ab pain; abd pain x 5 hours TECHNIQUE: Grayscale and color Doppler imaging of the right upper quadrant was performed. FINDINGS: EXAM MEASUREMENTS: Liver Length: 17.5 cm Gallbladder Wall: 0.2 cm CBD: 0.4 cm Right Kidney: 10.6 x 4.4 x 4.5 cm Pancreas: wnl Liver: difficult to penetrate Gallbladder: wnl Evidence for sonographic Hoang's sign: no CBD: wnl Right Kidney: wnl IMPRESSION: 1. Hepatomegaly with mild fatty infiltration. [facility], , 09/29/2024 10:20 AM
[2024-09-29] MEDS: SODIUM CHLORIDE 0.9% 1,000 ML IV STA (10:24)
[2024-09-29] MEDS: HYDROmorphone 1 MG/ML 1 ML SYRINGE IVP STA (10:25)
--- NOTE | 2024-09-29 11:07 | CT ---
EXAMINATION TYPE: CT abdomen pelvis w con DATE OF EXAM: 09/29/2024 COMPARISON: NONE CLINICAL INDICATION: Female, 23 years old with history of epigastric ab pain, Epigastric pain radiati ng down right side since 0530 this morning. No N/V., TECHNIQUE: CT scan of the abdomen and pelvis is performed with IV Contrast, patient injected with 100 ml mL of I sovue 300., (none if empty) Oral contrast used: without Oral Contrast (none if empty) CT DLP: 1285.3 mGycm, Automated exposure control for dose reduction was used. FINDINGS: LUNG BASES: No significant abnormality is appreciated. LIVER/GB: Liver is heterogeneously hypodense consistent with diffuse fatty infiltrative hepatocellula r disease. PANCREAS: No significant abnormality is seen. SPLEEN: No significant abnormality is seen. ADRENALS: No significant abnormality is seen. KIDNEYS: No significant abnormality is seen. BOWEL: No abnormal small or large bowel dilatation. Normal gas-filled appendix from the cecum. Mild wall thickening in the terminal ileum. Additional mild wall thickening involving some small bowel loo ps scattered throughout the lower abdomen anteriorly. UTERUS/ADNEXA: Retroflexed uterus. Small amount of free fluid in the pelvis axial image 66. LYMPH NODES: No greater than 1cm abdominal or pelvic lymph nodes are appreciated. OSSEOUS STRUCTURES: There are 4 lumbar type vertebra incidentally noted. OTHER: No significant additional abnormality is seen. IMPRESSION: Possible uncomplicated acute distal enteritis versus product of poor distention. Correlat e clinically. Differential includes infectious and/or inflammatory etiologies. No bowel obstruction. [facility], , 09/29/2024 11:04 AM
[2024-09-29] MEDS: ONDANSETRON 4 MG/2 ML VIAL IVP STA (11:10)
[2024-09-29] MEDS: ONDANSETRON 4 MG ODT STARTER PACK 2 TAB BTL PO STA (12:03)
[2024-09-29] MEDS: ACET/COD 300 MG/30 MG STARTER PACK 6 TAB BTL PO STA (12:03)
[2024-09-29 12:06] VITALS: BP 108/84; PULSE 88; TEMP 98.4
== END 2024-09-29 12:26 | disposition home or self-care (01) ==
LOC: EC 08:33
DX: R10.11 Right upper quadrant pain (principal); F17.290 Nicotine dependence, other tobacco product, uncomplicated; Z91.030 Bee allergy status
CPT/HCPCS: 36415; 80053; 82150; 83605; 83690; 85025; 81001; 81025; 76705; 74177; 99284; 96374; 96375 ×2; 96361 ×2; J2270; J2405; J1171; S0119; Q9967

== ENCOUNTER → 2024-10-14 | Outpatient (CLI) | payer OTHER ==
--- NOTE | 2024-10-14 16:38 | NM ---
EXAMINATION TYPE: NM hepatobiliary w EF DATE OF EXAM: 10/14/2024 COMPARISON: CT abdomen and pelvis 09/29/2024, ultrasound gallbladder 09/29/2024 CLINICAL INDICATION: Female, 23 years old with history of K50.00; TECHNIQUE: After the intravenous administration of 4.36 mCi Tc 99m Mebrofenin hepatobiliary scintigra phy is performed. Immediate images post injection. FINDINGS: There is satisfactory initial accumulation of tracer by the liver. The gallbladder is visualized wit hin 6 minutes. The small bowel activity is noted within 14 minutes. At one hour 8 ounces of oral en sure plus is given to mimic CCK and gallbladder ejection fraction is calculated at 89 %, in the shane l range. Therefore there is no scintigraphic evidence of cystic or common bile duct obstruction to s uggest acute cholecystitis or gallbladder dyskinesia. IMPRESSION: Exam is within normal limits. [facility], , 10/14/2024 4:35 PM
== END | disposition home or self-care (01) ==
LOC: RADNMMAIN 13:19
PROVIDERS: ATTEND Family Medicine
DX: K50.00 Crohn's disease of small intestine without complications (principal)
CPT/HCPCS: 78226; A9537

== ENCOUNTER → 2025-01-12 | Outpatient (CLI) | payer OTHER ==
--- NOTE | 2025-01-13 07:34 | USB ---
Reason for Exam: Clinical finding. Technique: Method: Targeted. Findings: The lateral section of the breast of the left breast, the medial section of the breast of both breasts, the axilla of both breasts and the retroareolar of both breasts were scanned. Technique utilized:US breast limited BILAT Image; Ultrasound imaging of: Area of concern, retroareolar region and axilla. No evidence for organizing fluid collection or mass. No lymphadenopathy. Overall Assessment: Negative, BI-RAD 1 Management: Screening Mammogram of both breasts at age 39. A clinical breast exam by your physician is recommended on an annual basis and results should be correlated with mammographic findings. This exam should not preclude additional follow-up of suspicious palpable abnormalities. Results were given to the patient verbally at the time of exam. [facility], , 01/13/2025 7:30 AM. Electronically signed and approved by: Sammy Rabago DO
== END | disposition home or self-care (01) ==
LOC: RADUSWWP 14:52
PROVIDERS: ATTEND Family Medicine
DX: N64.4 Mastodynia (principal)